=== PATIENT | male | born 1955 | race Caucasian/White ===

== ENCOUNTER 2021-09-05 04:23 | Inpatient (IN) | payer MEDICAID, SELFPAY ==
[2021-09-05 04:23] VITALS: BP 149/79; PULSE 56; RESP 18; TEMP 36.8; O2SAT 98
[2021-09-05 04:34] VITALS: BMI 26.9
--- NOTE | 2021-09-05 05:18 | PC.NURSE ---
Dentures not with patient
--- NOTE | 2021-09-05 05:57 | PC.NURSE ---
Patient reports having thoughts of harming self.
[2021-09-05 06:00] VITALS: BP 157/85; PULSE 53; RESP 17; TEMP 36.9; O2SAT 96
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
[2021-09-05] MEDS: buPROPion XL (24 HR) 300 mg Tablet PO (10:46)
[2021-09-05] MEDS: levothyroxine 50 mcg Tablet PO (10:46)
[2021-09-05] MEDS: ibuprofen 600 mg Tablet PO (10:46)
[2021-09-05] MEDS: risperiDONE 1 mg Tablet PO ×3 (10:46→20:57)
[2021-09-05 14:00] VITALS: BP 105/68; PULSE 71; RESP 16; TEMP 36.6; O2SAT 96
[2021-09-05 20:18] VITALS: BP 109/66; PULSE 74; RESP 20; TEMP 36.3; O2SAT 95
[2021-09-06 06:00] VITALS: BP 103/63; PULSE 59; RESP 18; TEMP 36.6; O2SAT 95
[2021-09-06] MEDS: acetaminophen 325 mg Tablet 650 MG PO (10:15)
[2021-09-06] MEDS: buPROPion XL (24 HR) 300 mg Tablet PO (10:15)
[2021-09-06] MEDS: levothyroxine 50 mcg Tablet PO (10:15)
--- NOTE | 2021-09-06 10:21 | PC.NURSE ---
Patient with c/o right hip pain rated 4 , Tylenol 650 mg po given for this.
--- NOTE | 2021-09-06 12:15 | P.NPUPN_ITS ---
Subjective NPU Subjective: Patient presents today reporting that he is doing okay. It appears that getting his medication daily is helpful and he was less pressured about his confucianist preoccupations. However he did continue to do be somatically preoccupied about things related to his health and some of them loosely being connected with issues of his stigmata. We discussed the importance of him getting multiple days of him taking the medication to get a sense of where things are. Mental Status Exam MSE Comments: This is a well nourished, well developed white male in hospital scrubs with adequate grooming and limited eye contact. No abnormal movements except for psychomotor retardation. Mostly cooperative with exam in mild to moderate distress. Speech was normal rate and volume. Mood described as okay, affect is slightly subdued. Thought process, organized. Thought content: patient denies suicidal or homicidal ideation, no delusions reported but active delusions noted, and endorses auditory and visual hallucinations. Attention and concentration are intact and memory appeared reliable but none were formally tested. He is alert and oriented three times. Insight and judgment are limited. Impulse control is impaired. 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 1. Continue current medications 2. Encourage individual, group and milieu therapy 3. Continue q-15 minute check for safety 4. Recommend sober living treatment at the highest level of care to which the patient is willing to commit. Involuntary Hold Information 96 Hour Hold: 96 Hour Involuntary Admission: No Attestations NPU Medical Necessity Statement*: Inpatient hospitalization is medically necessary and the clinically appropriate intervention at this time. We will monitor medications and make changes as indicated. Likely length of stay is three to five days. 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
[2021-09-06 14:00] VITALS: BP 138/77; PULSE 63; RESP 16; TEMP 36.4; O2SAT 97
[2021-09-06 20:14] VITALS: BP 136/79; PULSE 59; RESP 20; TEMP 36.8; O2SAT 99
[2021-09-06] MEDS: hyDROXYzine 25 mg Capsule 50 MG PO (21:56)
[2021-09-06] MEDS: risperiDONE 2 mg Tablet 1 MG PO (21:56)
[2021-09-06] MEDS: trazodone 50 mg Tablet PO (21:57)
[2021-09-07 06:00] VITALS: BP 141/86; PULSE 63; RESP 18; TEMP 36.4; O2SAT 94
--- NOTE | 2021-09-07 07:55 | W.PM.NPUPNS ---
Subjective NPU Subjective: Patient presents today reporting that he is feeling a little bit better. Specifically some of his pain syndrome is diminishing as he is experiencing it. He continues to be hyper somatic versus having somatic delusions. He does continue to speak about the stigmata and his energy level. Reporting for him to be as young as he is should be this tired and he needs his energy to go about his purpose when he leaves the hospital. He reports that he is getting more more accustomed to the medication and denies any drowsiness reports he is eating and sleeping better likely due to lessening of the pain. Mental Status Exam MSE Comments: This is a well nourished, well developed white male in hospital scrubs with adequate grooming and limited eye contact. No abnormal movements except for psychomotor retardation. Mostly cooperative with exam in mild distress. Speech was normal rate and volume. Mood described as all right, affect is slightly subdued. Thought process, organized. Thought content: patient denies suicidal or homicidal ideation, no delusions reported but active delusions noted, and endorses auditory and visual hallucinations. Attention and concentration are intact and memory appeared reliable but none were formally tested. He is alert and oriented three times. Insight and judgment are limited. Impulse control is limited. 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 1. Continue current medications 2. Encourage individual, group and milieu therapy 3. Continue q-15 minute check for safety 4. Recommend sober living treatment at the highest level of care to which the patient is willing to commit. Involuntary Hold Information 96 Hour Hold: 96 Hour Involuntary Admission: No Attestations NPU Medical Necessity Statement*: Inpatient hospitalization is medically necessary and the clinically appropriate intervention at this time. We will monitor medications and make changes as indicated. Likely length of stay is 2-4 days. 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
[2021-09-07] MEDS: risperiDONE 2 mg Tablet 1 MG PO ×3 (08:58→21:24)
[2021-09-07] MEDS: hyDROXYzine 25 mg Capsule 50 MG PO (08:59)
[2021-09-07] MEDS: levothyroxine 50 mcg Tablet PO (08:59)
[2021-09-07] MEDS: ibuprofen 600 mg Tablet PO (08:59)
[2021-09-07] MEDS: buPROPion XL (24 HR) 300 mg Tablet PO (08:59)
--- NOTE | 2021-09-07 09:22 | PC.NURSE ---
PT REPORTED 6/10 GENERALIZED PAIN THIS AM AND THE PAIN WAS MAKING HIM ANXIOUS. PRN VISTARIL WAS GIVEN ORDERED. PT DENIES SI/HI AND AVH AT THIS TIME. PT DID WALK TO ROOM WITHOUT DIFFICULTY. CURRENTLY IN BED RESTING IN NO DISTRESS. MEDICATION EFFECTIVE.
[2021-09-07 13:58] VITALS: BP 141/86; PULSE 63; RESP 18; TEMP 36.4; O2SAT 94
[2021-09-07 15:33] VITALS: BP 154/85; PULSE 68; RESP 16; TEMP 36.4; O2SAT 98
[2021-09-07 20:07] VITALS: BP 144/81; PULSE 74; RESP 15; O2SAT 98
[2021-09-08 06:00] VITALS: BP 139/86; PULSE 70; RESP 16; TEMP 36.6; O2SAT 97
--- NOTE | 2021-09-08 06:12 | W.PM.NPUPNS ---
Subjective NPU Subjective: Patient presents today reporting that he thinks he?s doing a little better. We discussed a plan to work with the treatment team in the morning to start looking at possible discharge opportunities. He continues to be less preoccupied with the stigmata conversation. Otherwise he did not complain about any specific pains or physical concerns today. Mental Status Exam MSE Comments: This is a well nourished, well developed white male in hospital scrubs with adequate grooming and limited eye contact. No abnormal movements except for psychomotor retardation. Mostly cooperative with exam in no acute distress. Speech was normal rate and volume. Mood described as Okay, affect is slightly subdued. Thought process, organized. Thought content: patient denies suicidal or homicidal ideation, no delusions reported but active delusions noted, and endorses auditory and visual hallucinations. Attention and concentration are intact and memory appeared reliable but none were formally tested. He is alert and oriented three times. Insight and judgment are limited. Impulse control is limited. 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 1. Continue current medications 2. Encourage individual, group and milieu therapy 3. Continue q-15 minute check for safety 4. Recommend sober living treatment at the highest level of care to which the patient is willing to commit. Involuntary Hold Information 96 Hour Hold: 96 Hour Involuntary Admission: No Attestations NPU Medical Necessity Statement*: Inpatient hospitalization is medically necessary and the clinically appropriate intervention at this time. We will monitor medications and make changes as indicated. Likely length of stay is 1-3 days. 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
[2021-09-08] MEDS: buPROPion XL (24 HR) 300 mg Tablet PO (09:52)
[2021-09-08] MEDS: risperiDONE 2 mg Tablet 1 MG PO ×3 (09:52→20:14)
[2021-09-08] MEDS: levothyroxine 50 mcg Tablet PO (09:52)
[2021-09-08 14:00] VITALS: BP 153/80; PULSE 66; RESP 16; TEMP 36.8; O2SAT 98
[2021-09-08] MEDS: ibuprofen 600 mg Tablet PO ×2 (14:25→20:13)
[2021-09-08 20:41] VITALS: BP 153/96; PULSE 76; RESP 20; TEMP 36.8; O2SAT 95
[2021-09-09 06:00] VITALS: BP 169/84; PULSE 61; RESP 18; TEMP 36.6; O2SAT 98
[2021-09-09] MEDS: ibuprofen 600 mg Tablet PO (06:39)
[2021-09-09] MEDS: risperiDONE 2 mg Tablet 1 MG PO ×3 (09:33→22:20)
[2021-09-09] MEDS: levothyroxine 50 mcg Tablet PO (09:33)
[2021-09-09] MEDS: buPROPion XL (24 HR) 300 mg Tablet PO (09:33)
--- NOTE | 2021-09-09 12:59 | P.NPUPN_ITS ---
Subjective NPU Subjective: Patient presents today reports that he is doing better and reports that he would like to go home. He asked the bond underwriter of the note if i knew about stigmata. 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 He reports that he has battled homelessness recently and reports concern about hepatitis c as he complained about fatigue and reports recent diagnosis of this. He reports feeling better on his medication and reports that he has been readying himself at [facility] tommorow. Mental Status Exam MSE Comments: This is a well nourished, well developed white male in hospital scrubs with adequate grooming and limited eye contact. No abnormal movements except for psychomotor retardation. Mostly cooperative with exam in no acute distress. Speech was normal rate and volume. Mood described as allright, affect is blunted. Thought process, more linear and organized. Thought content: patient denies suicidal or homicidal ideation, no delusions reported but active delusions noted, and endorses auditory and visual hallucinations. Attention and concentration are intact and memory appeared reliable but none were formally tested. He is alert and oriented three times. Insight and judgment are limited. Impulse control is limited. Deniz complexion noted. 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 1. Continue wellbutrin xl 300mg in AM, Risperidone 1mg tid. 2. Encourage individual, group and milieu therapy 3. Continue q-15 minute check for safety 4. Recommend sober living treatment at the highest level of care to which the patient is willing to commit. Involuntary Hold Information 96 Hour Hold: 96 Hour Involuntary Admission: No Attestations NPU Medical Necessity Statement*: Inpatient hospitalization is medically necessary and the clinically appropriate intervention at this time. We will monitor medications and make changes as indicated. Likely length of stay is 1-2 days. 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
[2021-09-09 13:20] VITALS: BP 145/68; PULSE 66; RESP 17; TEMP 36.9; O2SAT 97
[2021-09-09 20:31] VITALS: BP 146/77; PULSE 81; RESP 16; TEMP 36.5; O2SAT 98
[2021-09-10] MEDS: ibuprofen 600 mg Tablet PO (05:18)
[2021-09-10 06:00] VITALS: RESP 18
[2021-09-10 09:57] VITALS: RESP 18
[2021-09-10 10:11] VITALS: BP 146/87; PULSE 73; RESP 16; TEMP 36.1; O2SAT 91
[2021-09-10] MEDS: risperiDONE 2 mg Tablet 1 MG PO (10:16)
[2021-09-10] MEDS: buPROPion XL (24 HR) 300 mg Tablet PO (10:16)
[2021-09-10] MEDS: levothyroxine 50 mcg Tablet PO (10:17)
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
== END 2021-09-10 12:10 | disposition home or self-care (01) | DRG 885 ==
PROVIDERS: Admitting Provider Psychiatry & Neurology Psychiatry; Visit Provider Psychiatry & Neurology Psychiatry
DX: F20.9 Schizophrenia, unspecified (principal); R45.851 Suicidal ideations; F60.89 Other specific personality disorders; Z59.00 Homelessness unspecified
CPT/HCPCS: 97150; 97165

== ENCOUNTER 2022-12-15 13:14 | Inpatient (IN) | payer MEDICARE, MEDICAID, SELFPAY ==
--- OUTSIDE RECORDS SUMMARY | 2022-12-15 13:20 | XMS_ITS | Continuity of Care Document ---
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 Name Role Phone Shelby THOMAS ([facility])Rahat Primary Care Physician Encounter Self Financial Number [id number] Date(s): 11/01/22 - 11/01/22 [facility] [address] [place] [address]- Encounter Diagnosis Back pain(Discharge Diagnosis) - 11/01/22 Discharge Disposition: .Discharge to Home (Routine) Attending Physician: Ken Cadet MD, MA Allergies, Adverse Reactions, Alerts Substance Reaction Severity Status penicillins unknown Unknown Active sulfa drugs Flores Art Syndrome Severe Act tamiko codeine stomach upset Moderate Active Talwin NX syncope Moderate Active Assessment and Plan Extracted from: Title:Back pain Author:Ken Cadet MD, MA Da te:11/01/22 Impression and Plan Diagnosis Back pain ([id number] M54.9) Plan Condition: Improved. Disposition: Medically cleared, Discharged: Time 11/01/2022 14:54:00, to home, The patient received an appropriate MSE including H&P exam as well as ancillary studies and procedures determined appropriate in the provider's judgement. The patient is medically and/or psychologically cleared for discharge. . Discharge: Diagnosis: Back pain (M54.9) Rx: Wall 5 mg-325 mg oral tablet 1 tab, By mouth, BID, PRN for pain, 3 Days, 6 tab, 0, 0, 11/04/22 14:48:00 CDT, Substitution Permitted, [facility], 74, Height (inches) (Clinical), 10/09/22 13:59:00 CDT, in, 112.1, Weight (kg) (Clinical), 11/01/22 10:35:00 CDT, kg Education: Acute Back Pain, Adult Orders: ( Completed ): fentaNYL (fentaNYL) 50 mcg 11/01/2022 11:20 Xtra Gold Top 11/01/2022 11:12 Xtra blue top 11/01/2022 11:12 CBC-d (CBC-d) 11/01/2022 11:29 CMP (CMP) 11/01/2022 11:41 Urinalysis w/ microscopy (Urinalysis w/ microscopy) 11/01/2022 11:30 zCBC Automated Diff (zCBC Automated Diff) 11/01/2022 11:50 MR Lumbar w wo Contrast (MR Lumbar w wo Contrast) 11/01/2022 13:45 gadobenate dimeglumine (MULTIHANCE 529 MG VL 20 ML) 20 mL 11/01/2022 12:36 morphine (morphine INJ) 4 mg 11/01/2022 14:09 Follow Up: Rahat Ryan 5 to 7 days Return to Emergency Department 5 to 7 days Return for worsening pain, fevers, numbness in your bowel or bladder, or any other symptoms you find concerning. [facility] 5 to 7 days Call on Thursday to schedule an appointment for your back. . Counseled: Patient, Regarding diagnosis, Regarding diagnostic results, Regarding treatment plan, Regarding prescription, Patient indicated understanding of instructions, Return precautions . Future Appointments Appointment Date:12/11/2022 01:00:00 PM Scheduled Provider:Shelby THOMAS ([facility])Rahat Location:[facility] Appointment Type:Established Patient Appointment Date:01/22/2023 11:00:00 AM Scheduled Provider:[facility]afa Marks [facility]:Established Patient Appointment Date:05/06/2023 09:10:00 AM Scheduled Provider:Gómez Soriano MD Location:-[facility] Sp Appointment Type:Established Patient Future Scheduled Tests Laboratory* Miscellaneous Send out 03/10/22 * Creatinine Clinic Radiology 03/21/22 * Hemogram 03/06/22 * HIV Antigen-Antibody by EIA 03/06/22 * Hgb A1C 03/06/22 * PSA 03/06/22 * TSH w Reflex FT4 03/06/22 * Lipid Panel with Reflex Direct LDL 03/06/22 * CMP 03/06/22 Radiology* XR Abd KUB Routine 3/15/23 Immunizations Given and Recorded Vaccine Date Status Refusal Reason COVID-19 SARS-CoV-2 mRNA-1273 Moderna 09/18/21 Rec orded COVID-19 SARS-CoV-2 mRNA-1273 Moderna 08/06/20 Rec orded Medications acetaminophen 325 mg oral tablet 650 mg = 2 tab, PO/per tube, Q6H, PRN Temp, Mild Pain, Headache, Refill(s) 0, TAB Start Date: 05/16/22 Status: Ordered Depakote 1 mg, By mouth, Daily, # 30 EA, Refill(s) 0 Start Date: 09/24/22 Status: Ordered levothyroxine 50 mcg (0.05 mg) oral tablet 50 mcg = 1 tab, By mouth, Daily, # 30 tab, Refill(s) 0, Other: See Comments, Pharmacy: [facility], [id number], TAB, 1 tab By mouth Daily, 113.91, 09/12/22 8:55:00CDT, kg, Weight (kg) (Clinical) Start Date: 09/24/22 Status: Ordered nadolol 20 mg oral tablet 20 mg = 1 tab, PO, Daily, # 30 tab, Refill(s) 12, Pharmacy: [facility], [id number], 1 tab By mouth Daily, 113.91, 09/12/22 8:55:00 CDT, kg, Weight (kg) (Clinical) Start Date: 09/24/22 Status: Ordered Wall 5 mg-325 mg oral tablet 1 tab, By mouth, BID, PRN for pain, 3 Days, 6 tab, 0, 0, 11/04/22 14:48:00 CDT, Substitution Permitted, [facility], 74, Height (inches) (Clinical), 10/09/22 13:59:00 CDT, in, 112.1, Weight(kg) (Clinical), 11/01/22 10:35:00 CDT, kg Start Date: 11/01/22 Stop Date: 11/04/22 Status: Ordered Pepcid 20 mg oral tablet 20 mg, By mouth, BID, # 60 tab, Refill(s) 1, GERD, Pharmacy: [facility], [id number], TAB, 20 mg By mouth BID, 113.91, 09/12/22 8:55:00 CDT, kg, Weight (kg) (Clinical) Start Date: 09/24/22 Status: Ordered RisperDAL 2 mg oral tablet 2 mg = 1 tab, By mouth, BID, # 60 tab, Refill(s) 0 Start Date: 11/01/22 Status: Ordered spironolactone 50 mg oral tablet 50 mg = 1 tab, By mouth, Daily, # 30 tab, Refill(s) 11, Pharmacy: [facility], NCPDP_ID-[id number], TAB, 1 tab By mouth Daily,x30 Days, 115.59, 10/09/22 13:59:00 CDT, kg, Weight (kg) (Clinical) Start Date: 10/09/22 Stop Date: 10/04/23 Status: Ordered Wellbutrin XL 150 mg/24 hours oral tablet, extended release 150 mg = 1 tab, By mouth, QAM, # 30 tab, Refill(s) 11, Depression, Pharmacy: [facility], NCPDP_ID-[id number], XL TAB, 1 tab By mouth QAM,x30 Days, 115.59, 10/09/22 13:59:00 CDT,kg, Weight (kg) (Clinical) Start Date: 10/21/22 Stop Date: 10/16/23 Status: Ordered Problem List Condition Confirmation Course Effective Dates Status H ealth Status Informant Abdominal pain Confirmed Active Increased ammonia level Confirmed Active Ascites Confirmed Active Benign prostate hyperplasia Confirmed Active Hematuria Confirmed Active Chronic hepatitis C Confirmed Active Cirrhosis Confirmed Active Esophageal varices Confirmed Active Ex-smoker Confirmed Active patient Supraumbilical hernia Confirmed Active Homeless Confirmed Active Hypertension Confirmed Active Hypothyroidism Confirmed Active Renal calculus Confirmed Active Depression, major Confirmed Active Peripheral neuropathy Confirmed Active Polysubstance abuse Confirmed Active Ureteral stenosis Confirmed Active Procedures Procedure Date Related Diagnosis Body Site Status Gastroscopy - Endo 1 05/05/22 Comp leted Esophagogastroduodenoscopy 2 1/19/22 Completed Gastroscopy - Endo 3 08/01/17 Comp leted gallbladder 1999 Completed back surgery 04/1985 Completed lithotripsy Completed 1auto-populated from documented surgical case 2auto-populated from documented surgical case 3auto-populated from documented surgical case Results Laboratory List Name Date CBC-d 11/01/22 CMP 11/01/22 Urinalysis w/ microscopy 11/01/22 zCBC Automated Diff 11/01/22 Most recent to oldest [Reference Range]: 1 Anion Gap [2-15 mEq/L] 4 mEq/L (11/01/22 11:10 AM) RTE Casts None Seen (11/01/22 11:10 AM) RTEs None Seen (11/01/22 11:10 AM) eGFR CKD-EPI [>=61 mL/min/1.73 m2] 108 m L/min/1.73 m2 (11/01/22 11:10 AM) Glucose, Serum/Plasma [70-100 mg/dL] 98 mg/dL (11/01/22 11:10 AM) WBC [4.8-10.8 Thous/mm3] 3.8 Thous/mm3 *LOW* (11/01/22 11:10 AM) Hct [42.0-52.0 %] 31.7 % *LOW* (11/01/22 11:10 AM) Hgb [14.0-18.0 g/dL] 9.1 g/dL *LOW* (11/01/22 11:10 AM) RBC [4.60-6.20 Million/mm3] 4.67 Million /mm3 (11/01/22 11:10 AM) MCV [80.0-100.0 fl] 67.9 fl *LOW* (11/01/22 11:10 AM) MCH [26.0-34.0 pg] 19.5 pg *LOW* (11/01/22 11:10 AM) MCHC [31.0-36.5 g/dL] 28.7 g/dL *LOW* (11/01/22 11:10 AM) RDW [10.4-14.4 %] 24.5 % *HI* (11/01/22 11:10 AM) Platelets [130-440 Thous/mm3] 149 Thous/ mm3 (11/01/22 11:10 AM) MPV [9.4-12.4 fl] ---- fl *NA* (11/01/22 11:10 AM) AutoNeutrophil [43.0-78.0 %] 70.0 % (11/01/22 11:10 AM) AutoLymphs [20.0-40.0 %] 18.7 % *LOW* (11/01/22 11:10 AM) AutoMono [2.0-10.0 %] 6.8 % (11/01/22 11:10 AM) AutoEo [0.0-7.0 %] 2.1 % (11/01/22 11:10 AM) Sodium [136-145 mEq/L] 142 mEq/L (11/01/22 11:10 AM) Potassium [3.5-5.1 mEq/L] 4.5 mEq/L (11/01/22 11:10 AM) Chloride [98-107 mEq/L] 114 mEq/L *HI* (11/01/22 11:10 AM) AbsNeut [2.0-8.0 Thous/mm3] 2.7 Thous/mm 3 (11/01/22 11:10 AM) CO2 [21-32 mEq/L] 24 mEq/L (11/01/22 11:10 AM) BUN [7-18 mg/dL] 12 mg/dL (11/01/22 11:10 AM) Creatinine [0.73-1.18 mg/dL] 0.59 mg/dL *LOW* (11/01/22 11:10 AM) AbsLymph [1.0-4.0 Thous/mm3] 0.7 Thous/m m3 *LOW* (11/01/22 11:10 AM) AbsMono [0.1-1.0 Thous/mm3] 0.3 Thous/mm 3 (11/01/22 11:10 AM) Bilirubin, Total [0.2-1.0 mg/dL] 1.4 mg/ dL *HI* (11/01/22 11:10 AM) AbsEo [0.0-0.5 Thous/mm3] 0.1 Thous/mm3 (11/01/22 11:10 AM) AbsBaso [0.0-0.2 Thous/mm3] 0.1 Thous/mm 3 (11/01/22 11:10 AM) AutoBaso [0.0-2.5 %] 2.1 % (11/01/22 11:10 AM) Calcium [8.3-10.6 mg/dL] 8.2 mg/dL *LOW* (11/01/22 11:10 AM) Protein Total [6.4-8.5 g/dL] 5.9 g/dL *LOW* (11/01/22 11:10 AM) Albumin [3.4-5.0 g/dL] 3.2 g/dL *LOW* (11/01/22 11:10 AM) AST [15-37 U/L] 103 U/L *HI* (11/01/22 11:10 AM) Alk Phos [45-117 U/L] 112 U/L (11/01/22 11:10 AM) ALT [10-49 U/L] 62 U/L *HI* (11/01/22 11:10 AM) Appearance [Clear] Clear (11/01/22 11:10 AM) Color [Yellow] Dark Yellow *NA* (11/01/22 11:10 AM) Sp. [place] [1.001-1.035] 1.024 (11/01/22 11:10 AM) Ketones [Negative] Negative (11/01/22 11:10 AM) Glucose [Negative] Negative (11/01/22 11:10 AM) Protein [Negative] Negative (11/01/22 11:10 AM) Blood [Negative] Negative (11/01/22 11:10 AM) Nitrites UA [Negative] Negative (11/01/22 11:10 AM) Bilirubin UA [Negative] Negative (11/01/22 11:10 AM) Urobilinogen [1.0 mg/dL] 2.0 mg/dL *ABN* (11/01/22 11:10 AM) Leuko Esterase UA [Negative] Negative (11/01/22 11:10 AM) pH UA [5.0-9.0] 6.0 (11/01/22 11:10 AM) RBC [0-2/hpf] 0-2/hpf (11/01/22 11:10 AM) WBC [0-5/hpf] 0-5/hpf (11/01/22 11:10 AM) Hyaline Casts [0-2/lpf] 0-2/lpf (11/01/22 11:10 AM) Bacteria [None Seen] None Seen (11/01/22 11:10 AM) Epithelium [None Seen] None Seen (11/01/22 11:10 AM) Volume 3 mL *NA* (11/01/22 11:10 AM) Imm. Grans % [0-5 %] <5 % (11/01/22 11:10 AM) Imm. Grans # [0.0-0.5 Thous/mm3] <0.5 Th ous/mm3 (11/01/22 11:10 AM) ANC-AbsNeutCount 2.7 Thous/mm3 *NA* (11/01/22 11:10 AM) Radiology Reports * Exam Date Time Procedure Performing Provider Status 11/01/22 12:37 PM MR Lumbar w wo Contrast Chichi KAMINSKI, Rusty atkins MA; Auth (Verified) Notes: (MR Lumbar w wo Contrast) Reason For Exam: Recent diagnosis hepatocellular carcinoma. Process of getting transplant. Low back pain, weakness of R leg. Began four days ago. MR Lumbar w wo Contrast PROCEDURE INFORMATION: Exam: MR Lumbar Spine Without and With Contrast Exam date and time: 11/01/2022 12:37 PM Age: 66 years old Clinical indication: Recent diagnosis hepatocellular carcinoma. Process of getting tr TECHNIQUE: Imaging protocol: Magnetic resonance imaging of the lumbar spine without and with contrast. Contrast material: MULTIHANCE; Contrast volume: 20 ml; Contrast route: INTRAVENOUS (IV); COMPARISON: CT Abd Pelvis w Contrast 07/11/2022 10:46 PM FINDINGS: Bones/joints: Lumbar alignment is within normal limits. There is a chronic appearing mild superior endplate compression deformity of L3. There is no suspicious marrow signal intensity. Spinal cord: The conus terminates at the L1 vertebral body level. The conus medullaris and cauda equina are unremarkable. L1-L2: Mild loss of disc height posteriorly. Gtsw-dt-rowxhpfn bilateral facet arthropathy. Small broad-based disc bulge. Mild bilateral neural foraminal stenosis without significant disc herniation or central canal stenosis. L2-L3: Diffuse disc desiccation. Mild loss of disc height posteriorly. Mild/moderate bilateral facet arthropathy. Asymmetric disc bulge. Mild central canal stenosis with zfrq-tq-jktnjisi bilateral neural foraminal stenosis. L3-L4: Moderate bilateral facet arthropathy broad-based disc bulge. Moderate bilateral neural foraminal stenosis and mild central canal stenosis. L4-L5: Moderate loss of disc height posteriorly. Moderate bilateral facet arthropathy. Asymmetric disc bulge. Moderate bilateral neural foraminal stenosis and mild central canal stenosis. Postsurgical changes consistent with partial left hemilaminectomy. L5-S1: Moderate bilateral facet arthropathy. Moderate loss of disc height posteriorly. Asymmetric disc bulge with superimposed small/shallow central disc protrusion resulting in effacement of the ventral thecal sac. Moderate bilateral neural foraminal stenosis without significant central canal stenosis. Soft tissues: Asymmetric atrophy of the left lower paraspinal musculature. Other findings: There is no suspicious enhancement after the administration of IV contrast. IMPRESSION: 1. No acute abnormality or evidence of metastasis within the lumbar spine. 2. Chronic appearing mild superior endplate compression deformity of L3. 3. Multilevel degenerative changes of the lumbar spine as described in detail above. Electronically signed by: Sri Bentley MD, [facility], 11/01/2022 13:45 REPORT Vital Signs Most recent to oldest [Reference Range]: 1 2 3 Blood Pressure 132/63 (11/01/22 2:20 PM) 174/84 (11/01/22 2:10 PM) 168/77 (11/01/22 12:40 PM) Weight (kg) (Clinical) 112.1 kg (11/01/22 10:35 AM) Social History Social History Type Response Smoking Status Former smoker; Smoke less tobacco use: Never; Has the patient smoked in the last 365 days, even once? No; 2nd hand smoke exposure. Yes; Number of years: 18; entered on: 01/14/22 Sex Male Implantable Device List Procedure Provider Procedure Date Device Type Site Ureteroscopy with Holmium La ser Lithotri Unknown 02/27/22 Unknown Ureter, Left Device Identifier Serial Number Lot or Batch Number Manufacturing Date Expiration Date Distinct Identification Code MRI Safety Implantable Status Assigning Authority [id number] Unknown [id number] Unknown 06/27/25 Unknown Unknown Active GS1 Procedure Provider Procedure Date Device Type Site Unknown Unknown 01/14/22 Unknown Ureter, Left Device Identifier Serial Number Lot or Batch Number Manufacturing Date Expiration Date Distinct Identification Code MRI Safety Implantable Status Assigning Authority Unknown Unknown [id number] Unknown 09/16/26 Unknown Unknown Active Unkn own Procedure Provider Procedure Date Device Type Site Unknown Unknown 05/02/21 Unknown Ureter, Left Device Identifier Serial Number Lot or Batch Number Manufacturing Date Expiration Date Distinct Identification Code MRI Safety Implantable Status Assigning Authority [id number] Unknown [id number] Unknown 12/18/25 Unknown Unknown Active GS1 Hospital Discharge Instructions Patient Education 11/01/2022 14:48:01 Acute Back Pain, Adult Acute Back Pain, Adult Acute back pain is sudden and usually short-lived. It is often caused by an injury to the muscles and tissues in the back. The injury may result from: ??? A muscle, tendon, or ligament getting overstretched or torn. Ligaments are tissues that connectbones to each other. Lifting something improperly can cause a back strain. ??? Wear and tear (degeneration) of the spinal disks. Spinal disks are circular tissue that providecushioning between the bones of the spine (vertebrae). ??? Twisting motions, such as while playing sports or doing yard work. ??? A hit to the back. ??? Arthritis. You may have a physical exam, lab tests, and imaging tests to find the cause of your pain. Acute back pain usually goes away with rest and home care. Follow these instructions at home: Managing pain, stiffness, and swelling ??? Take lokp-cok-bvlowec and prescription medicines only as told by your health care provider. Treatment may include medicines for pain and inflammation that are taken by mouth or applied to the skin, or muscle relaxants. ??? Your health care provider may recommend applying ice during the first 24???48 hours after your pain starts. To do this: ??? Put ice in a plastic bag. ??? Place a towel between your skin and the bag. ??? Leave the ice on for 20 minutes, 2???3 times a day. ??? Remove the ice if your skin turns bright red. This is very important. If you cannot feel pain, heat, or cold, you have a greater risk of damage to the area. ??? If directed, apply heat to the affected area as often as told by your health care provider. Usethe heat source that your health care provider recommends, such as a moist heat pack or a heating pad. ??? Place a towel between your skin and the heat source. ??? Leave the heat on for 20???30 minutes. ??? Remove the heat if your skin turns bright red. This is especially important if you are unable to feel pain, heat, or cold. You have a greater risk of getting burned. Activity ??? Do not stay in bed. Staying in bed for more than 1???2 days can delay your recovery. ??? Sit up and stand up straight. Avoid leaning forward when you sit or hunching over when you stand. ??? If you work at a desk, sit close to it so you do not need to lean over. Keep your chin tucked in. Keep your neck drawn back, and keep your elbows bent at a 90-degree angle (right angle). ??? Sit high and close to the steering wheel when you drive. Add lower back (lumbar) support to your car seat, if needed. ??? Take short walks on even surfaces as soon as you are able. Try to increase the length of time you walk each day. ??? Do not sit, drive, or disease and insect control boss one place for more than 30 minutes at a time. Sitting or standing for long periods of time can put stress on your back. ??? Do not drive or use heavy machinery while taking prescription pain medicine. ??? Use proper lifting techniques. When you bend and lift, use positions that put less stress on your back: ??? Bend your knees. ??? Keep the load close to your body. ??? Avoid twisting. ??? Exercise regularly as told by your health care provider. Exercising helps your back heal fasterand helps prevent back injuries by keeping muscles strong and flexible. ??? Work with a physical therapist to make a safe exercise program, as recommended by your health care provider. Do any exercises as told by your physical therapist. Lifestyle ??? Maintain a healthy weight. Extra weight puts stress on your back and makes it difficult to havegood posture. ??? Avoid activities or situations that make you feel anxious or stressed. Stress and anxiety increase muscle tension and can make back pain worse. Learn ways to manage anxiety and stress, such as through exercise. General instructions ??? Sleep on a firm mattress in a comfortable position. Try lying on your side with your knees slightly bent. If you lie on your back, put a pillow under your knees. ??? Keep your head and neck in a straight line with your spine (neutral position) when using electronic equipment like smartphones or pads. To do this: ??? Raise your smartphone or pad to look at it instead of bending your head or neck to look down. ??? Put the smartphone or pad at the level of your face while looking at the screen. ??? Follow your treatment plan as told by your health care provider. This may include: ??? Cognitive or behavioral therapy. ??? Acupuncture or massage therapy. ??? Meditation or yoga. Contact a health care provider if: ??? You have pain that is not relieved with rest or medicine. ??? You have increasing pain going down into your legs or buttocks. ??? Your pain does not improve after 2 weeks. ??? You have pain at night. ??? You lose weight without trying. ??? You have a fever or chills. ??? You develop nausea or vomiting. ??? You develop abdominal pain. Get help right away if: ??? You develop new bowel or bladder control problems. ??? You have unusual weakness or numbness in your arms or legs. ??? You feel faint. These symptoms may represent a serious problem that is an emergency. Do not wait to see if the symptoms will go away. Get medical help right away. Call your local emergency services (911 in the [place] Do not drive yourself to the hospital. Summary ??? Acute back pain is sudden and usually short-lived. ??? Use proper lifting techniques. When you bend and lift, use positions that put less stress on your back. ??? Take obgk-uzb-cycucmi and prescription medicines only as told by your health care provider, andapply heat or ice as told. This information is not intended to replace advice given to you by your health care provider. Make sure you discuss any questions you have with your health care provider. Document Revised: 04/19/2021 Document Reviewed: 04/19/2021 Elsevier Patient Education ?? 2022 [employer] Follow Up Care 11/01/2022 10:10:37 With:[facility] Address: [facility] [address] [address]- Business (1) When:5 to 7 days Comments:Call on Justen to schedule an appointment for your back. With:Return to Emergency Department Address:Unknown When:5 to 7 days Comments:Return for worsening pain, fevers, numbness in your bowel or bladder, or any other symptoms you find concerning. With:Rahat Ryan Address: [address] [facility] [address] [place] [address]- Business (1) When:5 to 7 days MR Lumbar spine WO [place] W contrast IV * [id number] SRI MA: PERFORM, VERIFY Event Display: Powerscribe Read Authored Date: [id number] PROCEDURE INFORMATION: Exam: MR Lumbar Spine Without and With Contrast Exam date and time: 11/01/2022 12:37 PM Age: 66 years old Clinical indication: Recent diagnosis hepatocellular carcinoma. Process of getting tr TECHNIQUE: Imaging protocol: Magnetic resonance imaging of the lumbar spine without and with contrast. Contrast material: MULTIHANCE; Contrast volume: 20 ml; Contrast route: INTRAVENOUS (IV); COMPARISON: CT Abd Pelvis w Contrast 07/11/2022 10:46 PM FINDINGS: Bones/joints: Lumbar alignment is within normal limits. There is a chronic appearing mild superior endplate compression deformity of L3. There is no suspicious marrow signal intensity. Spinal cord: The conus terminates at the L1 vertebral body level. The conus medullaris and cauda equina are unremarkable. L1-L2: Mild loss of disc height posteriorly. Vugi-af-nqrnvcio bilateral facet arthropathy. Small broad-based disc bulge. Mild bilateral neural foraminal stenosis without significant disc herniation or central canal stenosis. L2-L3: Diffuse disc desiccation. Mild loss of disc height posteriorly. Mild/moderate bilateral facet arthropathy. Asymmetric disc bulge. Mild central canal stenosis with jfxm-gp-tuglqwdq bilateral neural foraminal stenosis. L3-L4: Moderate bilateral facet arthropathy broad-based disc bulge. Moderate bilateral neural foraminal stenosis and mild central canal stenosis. L4-L5: Moderate loss of disc height posteriorly. Moderate bilateral facet arthropathy. Asymmetric disc bulge. Moderate bilateral neural foraminal stenosis and mild central canal stenosis. Postsurgical changes consistent with partial left hemilaminectomy. L5-S1: Moderate bilateral facet arthropathy. Moderate loss of disc height posteriorly. Asymmetric disc bulge with superimposed small/shallow central disc protrusion resulting in effacement of the ventral thecal sac. Moderate bilateral neural foraminal stenosis without significant central canal stenosis. Soft tissues: Asymmetric atrophy of the left lower paraspinal musculature. Other findings: There is no suspicious enhancement after the administration of IV contrast. IMPRESSION: 1. No acute abnormality or evidence of metastasis within the lumbar spine. 2. Chronic appearing mild superior endplate compression deformity of L3. 3. Multilevel degenerative changes of the lumbar spine as described in detail above. Electronically signed by: Sri Bentley MD, [facility], 11/01/2022 13:45 Note * [id number] -SRI BENTLEY: PERFORM, VERIFY Event Display: Report Authored Date: [id number] Patient Care team information Care Team Personnel Name: Chantel Atkins Position: Inpatient-Midlevel Member Role: Nurse Practitioner Address: Address: [facility] [place] [address]- Name: Shelby THOMAS ([facility])Rahat Position: PX Physician - Resident Member Role: Primary Care Physician Address: Address: [facility] Name: Hedy Ruvalcaba RN Position: ED-Clinical LP Member Role: Emergency Room Nurse Name: Ken Cadet MD, MA Position: Physician-Emergency LP Member Role: Attending Physician Address: Address: [facility] Care Team Related Persons Name: NONE, GIVEN Name: SHAYNA GUZMÁN Name: BASILIA NORTON
--- OUTSIDE RECORDS SUMMARY | 2022-12-15 13:20 | XMS_ITS | Continuity of Care Document ---
Author Name Unknown Organization [facility] Address [address] [place] [address]- Care Team Providers Care Inspector Automatic Typewriter Name Role Phone Shelby (CC), Rahat Miramontes Primary Care Physician Encounter Self Financial Number [id number] Date(s): 11/06/22 - 11/06/22 [facility] [address] [place] [address]- Encounter Diagnosis Stress reaction(Discharge Diagnosis) - 11/06/22 Discharge Disposition: .Discharge to Home (Routine) Attending Physician: Nazario Gregory DO Allergies, Adverse Reactions, Alerts Substance Reaction Severity Status penicillins unknown Unknown Active Talwin NX syncope Moderate Active sulfa drugs Flores Art Syndrome Severe Act tamiko codeine stomach upset Moderate Active Assessment and Plan Extracted from: Title:Psych Author:Faye Wellington NP Date: Impression and Plan Plan Condition: Stable. Disposition: Discharged: The patient received an appropriate MSE including H&P exam as well as ancillary studies and procedures determined appropriate in the provider's judgement. The patient is medically and/or psychologically cleared for discharge. . Discharge: Diagnosis: Stress reaction (F43.0) Education: Managing Stress, Adult Orders: ( Completed ): ED Physician Request Pending Complete (ED Physician Request Pending Complete) 11/06/2022 13:44 CBC-d (CBC-d) 11/06/2022 12:58 CMP (CMP) 11/06/2022 13:20 Urinalysis w/ microscopy (Urinalysis w/ microscopy) 11/06/2022 12:30 Acetaminophen Level (Acetaminophen Level) 11/06/2022 13:20 Blood Alcohol Level (Blood Alcohol Level) 11/06/2022 13:20 Salicylate Level (Salicylate Level) 11/06/2022 13:21 Drug Screen, Rapid Urine (Drug Screen, Rapid Urine) 11/06/2022 12:35 ED Physician Request (ED Physician Request) 11/06/2022 13:44 zCBC Automated Diff (zCBC Automated Diff) 11/06/2022 12:58 Follow Up: [facility] Rahat Ryan 5 to 7 days Follow Up With Primary Care Provider . Counseled: Patient, Regarding diagnosis, Regarding diagnostic results, Regarding treatment plan, Patient indicated understanding of instructions. Notes: Patient seen with Dr. Gregory. Future Appointments Appointment Date:12/11/2022 01:00:00 PM Scheduled Provider:Shelby THOMAS ([facility])Rahat Location:[facility] Appointment Type:Established Patient Appointment Date:01/22/2023 11:00:00 AM Scheduled Provider:Rafa Marks MD Location:-[facility] Appointment Type:Established Patient Appointment Date:04/15/2023 08:30:00 AM Scheduled Provider:Id[facility] Fern[facility] App[facility] Type:ER Follow Up (New) Appointment Date:05/06/2023 09:10:00 AM Scheduled Provider:Gómez Soriano [...] CMP 03/06/22 Radiology* XR Abd KUB Routine 04/23/22 Immunizations Given and Recorded Vaccine Date Status [...] tab, Refill(s) 0, Other: See Comments, Pharmacy: [facility], [id number], TAB, 1 tab By mouth Daily, 113.91, 09/12/22 8:55:00CDT, kg, Weight (kg) (Clinical) Start Date: 09/24/22 Status: Ordered nadolol 20 mg oral tablet 20 mg = 1 tab, PO, Daily, # 30 tab, Refill(s) 12, Pharmacy: [facility], [id number], 1 tab By mouth Daily, 113.91, 09/12/22 8:55:00 CDT, kg, Weight (kg) (Clinical) Start Date: 09/24/22 Status: Ordered naproxen 500 mg oral tablet 500 mg = 1 tab, By mouth, BID, # 60 tab, Refill(s) 0, Pharmacy: [facility], [id number], 1 tab By mouth BID, 107.82, 11/04/22 14:02:00 CDT, kg, Weight (kg) (Clinical) Start Date: 11/05/22 Stop Date: 02/08/23 Status: Ordered [place] 5 mg-325 mg oral tablet 1 tab, By mouth, BID, PRN for pain, 4 Days, 8 tab, 0, 0, 11/11/22 13:50:00 CDT, Substitution Permitted, [facility], 74, Height (inches) (Clinical), 11/04/22 13:59:00 CDT, in, 107.82, Weight (kg) (Clinical), 11/04/22 14:02:00 CDT, kg Start Date: 11/07/22 Stop Date: 11/11/22 Status: Ordered Pepcid 20 mg oral tablet 20 mg, By mouth, BID, # 60 tab, Refill(s) 1, GERD, Pharmacy: [facility], [id number], TAB, 20 mg By mouth BID, 113.91, 09/12/22 8:55:00 CDT, kg, Weight (kg) (Clinical) Start Date: 09/24/22 Status: Ordered RisperDAL 2 mg oral tablet 2 mg = 1 tab, By mouth, BID, # 60 tab, Refill(s) 0 Start Date: 11/01/22 Status: Ordered spironolactone 50 mg oral tablet 50 mg = 1 tab, By mouth, Daily, # 30 tab, Refill(s) 11, Pharmacy: [facility], [id number], TAB, 1 tab By mouth Daily,x30 Days, 112.1, 11/01/22 10:35:00 CDT, kg, Weight (kg) (Clinical) Start Date: 11/03/22 Stop Date: 10/29/23 Status: Ordered Wellbutrin XL 150 mg/24 hours oral tablet, extended release 150 mg = 1 tab, By mouth, QAM, # 30 tab, Refill(s) 11, Depression, [facility] NCP_ID-[id number], XL TAB, 1 tab By mouth QAM,x30 [...] Hypothyroidism Confirmed Active Renal calculus Confirmed Active Hepatocellular carcinoma Confirmed Active Depression, major Confirmed Active Peripheral neuropathy Confirmed Active Polysubstance abuse Confirmed Active Ureteral stenosis Confirmed Active Procedures Procedure Date Related Diagnosis Body Site Status Gastroscopy - Endo 1 05/05/22 Comp leted Esophagogastroduodenoscopy 2 02/27/21 Completed Gastroscopy - Endo 3 08/01/17 Comp leted gallbladder 1999 Completed back surgery 04/1985 Completed lithotripsy Completed 1auto-populated from documented surgical case 2auto-populated from documented surgical case 3auto-populated from documented surgical case Results Laboratory List Name Date Acetaminophen Level 11/06/22 Blood Alcohol Level 11/06/22 CBC-d 11/06/22 CMP 11/06/22 Salicylate Level 11/06/22 zCBC Automated Diff 11/06/22 Drug Screen, Rapid Urine 11/06/22 Urinalysis w/ microscopy 11/06/22 Most recent to oldest [Reference Range]: 1 Propoxyphene Screen [Negative] Negative *NA* (11/06/22 11:45 AM) Blood Alcohol g/dl [0.000-0.000 %] 0.000 % (11/06/22 12:45 PM) Anion Gap [2-15 mEq/L] 8 mEq/L (11/06/22 12:45 PM) Fine Granular Casts [0/lpf] 0/lpf (11/06/22 11:45 AM) Coarse Granular Casts [0/lpf] 0/lpf (11/06/22 11:45 AM) RTE Casts [0/lpf] 0/lpf (11/06/22 11:45 AM) RTEs [0-2/lpf] 0/lpf (11/06/22 11:45 AM) eGFR CKD-EPI [>=61 mL/min/1.73 m2] 103 m L/min/1.73 m2 (11/06/22 12:45 PM) Buprenorphine Screen [Negative] Positive *ABN* (11/06/22 11:45 AM) Oxycodone Screen [Negative] Negative *NA* (11/06/22 11:45 AM) Glucose, Serum/Plasma [70-100 mg/dL] 90 mg/dL (11/06/22 12:45 PM) WBC [4.8-10.8 Thous/mm3] 4.6 Thous/mm3 *LOW* (11/06/22 12:45 PM) Hct [42.0-52.0 %] 34.0 % *LOW* (11/06/22 12:45 PM) Hgb [14.0-18.0 g/dL] 9.9 g/dL *LOW* (11/06/22 12:45 PM) RBC [4.60-6.20 Million/mm3] 5.07 Million /mm3 (11/06/22 12:45 PM) MCV [80.0-100.0 fl] 67.1 fl *LOW* (11/06/2245 PM) MCH [26.0-34.0 pg] 19.5 pg *LOW* (11/06/22:45 PM) MCHC [31.0-36.5 g/dL] 29.1 g/dL *LOW* (11/06/22:45 PM) RDW [10.4-14.4 %] 24.9 % *HI* (11/06/2245 PM) Platelets [130-440 Thous/mm3] 188 Thous/ mm3 (11/06/22:45 PM) MPV [9.4-12.4 fl] ---- fl *NA* (11/06/22:45 PM) AutoNeutrophil [43.0-78.0 %] 66.5 % (11/06/22:45 PM) AutoLymphs [20.0-40.0 %] 21.2 % (11/06/22:45 PM) AutoMono [2.0-10.0 %] 6.3 % (11/06/22:45 PM) AutoEo [0.0-7.0 %] 3.9 % (11/06/2245 PM) Sodium [136-145 mEq/L] 141 mEq/L (11/06/2245 PM) Potassium [3.5-5.1 mEq/L] 4.4 mEq/L (11/06/2245 PM) Chloride [98-107 mEq/L] 109 mEq/L *HI* (11/06/2245 PM) AbsNeut [2.0-8.0 Thous/mm3] 3.1 Thous/mm 3 (11/06/2245 PM) CO2 [21-32 mEq/L] 24 mEq/L (11/06/2245 PM) BUN [7-18 mg/dL] 15 mg/dL (11/06/2245 PM) Creatinine [0.67-1.17 mg/dL] 0.70 mg/dL (11/06/22 12:45 PM) AbsLymph [1.0-4.0 Thous/mm3] 1.0 Thous/m m3 (11/06/22 12:45 PM) AbsMono [0.1-1.0 Thous/mm3] 0.3 Thous/mm 3 (11/06/22 12:45 PM) Bilirubin, Total [0.2-1.0 mg/dL] 2.4 mg/ dL *HI* (11/06/22 12:45 PM) AbsEo [0.0-0.5 Thous/mm3] 0.2 Thous/mm3 (11/06/22 12:45 PM) AbsBaso [0.0-0.2 Thous/mm3] 0.1 Thous/mm 3 (11/06/22 12:45 PM) AutoBaso [0.0-2.5 %] 1.9 % (11/06/22 12:45 PM) Calcium [8.5-10.1 mg/dL] 8.3 mg/dL *LOW* (11/06/22 12:45 PM) Protein Total [6.4-8.5 g/dL] 6.3 g/dL *LOW* (11/06/22 12:45 PM) Albumin [3.4-5.0 g/dL] 3.1 g/dL *LOW* (11/06/22 12:45 PM) AST [15-37 U/L] 101 U/L *HI* (11/06/22 12:45 PM) Alk Phos [45-117 U/L] 130 U/L *HI* (11/06/22 12:45 PM) ALT [12-78 U/L] 63 U/L (11/06/22 12:45 PM) Appearance [Clear] Clear *NA* (11/06/22 11:45 AM) Color [Straw] Suzette *NA* (11/06/22 11:45 AM) Sp. Lucile [1.001-1.035] 1.024 (11/06/22 11:45 AM) Ketones [Negative] Negative (11/06/22 11:45 AM) Glucose [Normal] Normal (11/06/22 11:45 AM) Protein [Negative] Negative (11/06/22 11:45 AM) Blood [Negative] Negative (11/06/22 11:45 AM) Nitrites UA [Negative] Negative (11/06/22 11:45 AM) Acetaminophen Level [10.0-30.0 mcg/mL] < 2.0 mcg/mL *LOW* (11/06/22 12:45 PM) Salicylate Level [2.8-20.0 mg/dL] <1.7 m g/dL *LOW* (11/06/22 12:45 PM) Bilirubin UA [Negative] Negative (11/06/22 11:45 AM) Urobilinogen [1.0 mg/dL] 4.0 mg/dL *ABN* (11/06/22 11:45 AM) Leuko Esterase UA [Negative] Negative (11/06/22 11:45 AM) pH UA [5.0-9.0] 5.0 (11/06/22 11:45 AM) RBC [0-2/hpf] 0/hpf *NA* (11/06/22 11:45 AM) WBC [0-5/hpf] 0-5/hpf *NA* (11/06/22 11:45 AM) Hyaline Casts [0-2/lpf] 0/lpf (11/06/22 11:45 AM) Granular Casts [0-2/lpf] 0/lpf (11/06/22 11:45 AM) Bacteria [Negative] Negative *NA* (11/06/22 11:45 AM) Crystals [Negative] Negative (11/06/22 11:45 AM) Epithelium [1+] 1+ *NA* (11/06/22 11:45 AM) Phencyclidine Screen [Negative] Negative *NA* (11/06/22 11:45 AM) Benzodiazepines Screen [Negative] Negati ve *NA* (11/06/22 11:45 AM) Cocaine Screen [Negative] Negative *NA* (11/06/22 11:45 AM) Amphetamines Screen [Negative] Negative *NA* (11/06/22 11:45 AM) Cannabinoids Screen [Negative] Negative *NA* (11/06/22 11:45 AM) Opiates Screen [Negative] Positive *ABN* (11/06/22 11:45 AM) Barbiturates Screen [Negative] Negative *NA* (11/06/22 11:45 AM) Tricyclic Antidepressants Screen [Negati ve] Negative *NA* (11/06/22 11:45 AM) Mucous Threads [Negative /hpf] 1+ /hpf *NA* (11/06/22 11:45 AM) Methamphetamine Screen [Negative] Negati ve *NA* (11/06/22 11:45 AM) Volume 2 mL *NA* (11/06/22 11:45 AM) Imm. Grans % [0-5 %] <5 % (11/06/22 12:45 PM) Imm. Grans # [0.0-0.5 Thous/mm3] <0.5 Th ous/mm3 (11/06/22 12:45 PM) ANC-AbsNeutCount 3.1 Thous/mm3 *NA* (11/06/22 12:45 PM) Methadone Screen [Negative] Negative *NA* (11/06/22 11:45 AM) Vital Signs Most recent to oldest [Reference Range]: 1 Blood Pressure 151/81 (11/06/22 11:21 AM) Weight (kg) (Clinical) 109.6 kg (11/06/22 11:21 AM) Social History Social History Type Response [...] Code MRI Safety Implantable Status Assigning Authority [id number] 737 Unknown [id number] Unknown 06/27/25 Unknown Unknown Active GS1 Procedure Provider Procedure Date Device Type Site Unknown Unknown 01/14/22 Unknown Ureter, Left Device Identifier Serial Number Lot or Batch Number Manufacturing Date Expiration Date Distinct Identification Code MRI Safety Implantable Status Assigning Authority Unknown Unknown [id number] Unknown 09/16/26 Unknown Unknown Active Unkn own Procedure Provider Procedure Date Device Type Site Unknown Unknown 05/02/21 Unknown Ureter, Left Device Identifier Serial Number Lot or Batch Number Manufacturing Date Expiration Date Distinct Identification Code MRI Safety Implantable Status Assigning Authority [id number] Unknown [id number] Unknown 12/18/25 Unknown Unknown Active GS1 Hospital Discharge Instructions Patient Education 11/06/2022 14:14:43 Managing Stress, Adult Managing Stress, Adult Feeling a certain amount of stress is normal. Stress helps our body and mind get ready to deal withthe demands of life. Stress hormones can motivate you to do well at work and meet your responsibilities. But severe or long-term (chronic) stress can affect your mental and physical health. Chronic stress puts you at higher risk for: ??? Anxiety and depression. ??? Other health problems such as digestive problems, muscle aches, heart disease, high blood pressure, and stroke. What are the causes? Common causes of stress include: ??? Demands from work, such as deadlines, feeling overworked, or having long hours. ??? Pressures at home, such as money issues, disagreements with a spouse, or parenting issues. ??? Pressures from major life changes, such as divorce, moving, loss of a loved one, or chronic illness. You may be at higher risk for stress-related problems if you: ??? Do not get enough sleep. ??? Are in poor health. ??? Do not have emotional support. ??? Have a mental health disorder such as anxiety or depression. How to recognize stress Stress can make you: ??? Have trouble sleeping. ??? Feel sad, anxious, irritable, or overwhelmed. ??? Lose your appetite. ??? Overeat or want to eat unhealthy foods. ??? Want to use drugs or alcohol. Stress can also cause physical symptoms, such as: ??? Sore, tense muscles, especially in the shoulders and neck. ??? Headaches. ??? Trouble breathing. ??? A faster heart rate. ??? Stomach pain, nausea, or vomiting. ??? Diarrhea or constipation. ??? Trouble concentrating. Follow these instructions at home: Eating and drinking ??? Eat a healthy diet. This includes: ??? Eating foods that are high in fiber, such as beans, whole grains, and fresh fruits and vegetables. ??? Limiting foods that are high in fat and processed sugars, such as fried or sweet foods. ??? Do not skip meals or overeat. ??? Drink enough fluid to keep your urine pale yellow. Alcohol use ??? Do not drink alcohol if: ??? Your health care provider tells you not to drink. ??? You are , may be , or are planning to become . ??? Drinking alcohol is a way some people try to ease their stress. This can be dangerous, so if you drink alcohol: ??? Limit how much you have to: ??? 0???1 drink a day for women. ??? 0???2 drinks a day for men. ??? Know how much alcohol is in your drink. In the [place] one drink equals one 12 oz bottle of beer (355 mL), one 5 oz glass of wine (148 mL), or one 1?? oz glass of hard liquor (44 mL). Activity ??? Include 30 minutes of exercise in your daily schedule. Exercise is a good stress assistant superintendent for curriculum. ??? Include time in your day for an activity that you find relaxing. Try taking a walk, going on a bike ride, reading a book, or listening to music. ??? Schedule your time in a way that lowers stress, and keep a regular schedule. Focus on doing what is most important to get done. Lifestyle ??? Identify the source of your stress and your reaction to it. See a therapist who can help you change unhelpful reactions. ??? When there are stressful events: ??? Talk about them with family, friends, or coworkers. ??? Try to think realistically about stressful events and not ignore them or overreact. ??? Try to find the positives in a stressful situation and not focus on the negatives. ??? Cut back on responsibilities at work and home, if possible. Ask for help from friends or familymembers if you need it. ??? Find ways to manage stress, such as: ??? Mindfulness, meditation, or deep breathing. ??? Yoga or tremayne chi. ??? Progressive muscle relaxation. ??? Spending time in nature. ??? Doing art, playing music, or reading. ??? Making time for fun activities. ??? Spending time with family and friends. ??? Get support from family, friends, or spiritual resources. General instructions ??? Get enough sleep. Try to go to sleep and get up at about the same time every day. ??? Take kmnx-frq-xrqbumi and prescription medicines only as told by your health care provider. ??? Do not use any products that contain nicotine or tobacco. These products include cigarettes, chewing tobacco, and vaping devices, such as e-cigarettes. If you need help quitting, ask your health care provider. ??? Do not use drugs or smoke to deal with stress. ??? Keep all follow-up visits. This is important. Where to find support ??? Talk with your health care provider about stress management or finding a support group. ??? Find a therapist to work with you on your stress management techniques. Where to find more information ??? National [place] on Mental Illness: www.dmitry.org ??? [place] [employer]: www.apa.org Contact a health care provider if: ??? Your stress symptoms get worse. ??? You are unable to manage your stress at home. ??? You are struggling to stop using drugs or alcohol. Get help right away if: ??? You may be a danger to yourself or others. ??? You have any thoughts of or suicide. Get help right awayif you feel like you may hurt yourself or others, or have thoughts about taking your own life. Go to your nearest emergency room or: ??? Call 911. ??? Call the National Suicide Prevention Lifeline at or 715 in the [place] This is open 24 hours a day. ??? Text the Crisis Text Line at 661311. Summary ??? Feeling a certain amount of stress is normal, but severe or long-term (chronic) stress can affect your mental and physical health. ??? Chronic stress can put you at higher risk for anxiety, depression, and other health problems such as digestive problems, muscle aches, heart disease, high blood pressure, and stroke. ??? You may be at higher risk for stress-related problems if you do not get enough sleep, are in poor health, lack emotional support, or have a mental health disorder such as anxiety or depression. ??? Identify the source of your stress and your reaction to it. Try talking about stressful events with family, friends, or coworkers, finding a coping method, or getting support from spiritual resources. ??? If you need more help, talk with your health care provider about finding a support group or a mental health therapist. This information is not intended to replace advice given to you by your health care provider. Make sure you discuss any questions you have with your health care provider. Document Revised: 08/22/2021 Document Reviewed: 08/20/2021 Elsevier Patient Education ?? 2022 [employer] Follow Up Care 11/06/2022 11:17:44 With:Rahat Ryan Address: [address] [address]- Business (1) When:5 to 7 days Comments:Follow Up With Primary Care Provider With:[facility] Address: [address] [place] [address] Business (1) When: Unknown Patient Care team information Care Team Personnel Name: Chantel Atkins Position: Inpatient-Midlevel Member Role: Nurse Practitioner Address: Address: [address], [place] [id number] [place] [address] Name: Shelby THOMAS ([facility])Rahat Position: PX Physician - Resident Member Role: Primary Care Physician Address: Address: [id number] [place] [address] Name: Nazario Gregory DO Position: Physician-Emergency LP Member Role: Attending Physician Address: Address: [address] Name: Faye Wellington NP Position: ED-Midlevel LP Member Role: Nurse Practitioner Address: Address: [address], [place] [id number] [place] [address] Name: Emily Carmen RN Position: ED-Clinical LP Member Role: Emergency Room Nurse Care Team Related Persons Name: SHAYNA ACOSTA Name: NONE, GIVEN Name: SHAYNA GUZMÁN Name: BASILIA NORTON
--- OUTSIDE RECORDS SUMMARY | 2022-12-15 13:20 | XMS_ITS | Continuity of Care Document ---
Author Name Unknown Organization [facility] Address [address] [place] [address]- Care Team Providers Care Irrigation Worker Name Role Phone Shelby THOMAS ([facility])Rahat Primary Care Physician Encounter Self Financial Number [id number] Date(s): 09/27/21 - 10/08/22 [facility] [address] [place] [address]- [phone] Attending Physician: Rafa Marks MD Allergies, Adverse Reactions, Alerts Substance Reaction Severity Status penicillins unknown Unknown Active Talwin NX syncope Moderate Active sulfa drugs Flores Art Syndrome Severe Act tamiko codeine stomach upset Moderate Active Assessment and Plan Future Appointments Appointment Date:10/09/2022 02:00:00 PM Scheduled Provider:Shelby THOMAS ([facility])Rahat Location:[facility] Appointment Type:Established Patient Appointment Date:01/22/2023 11:00:00 AM Scheduled Provider:[facility]:Established Patient Appointment Date:05/06/2023 09:10:00 AM Scheduled Provider:Gómez Soriano MD Location:-[facility] Appointment Type:Established Patient Future Scheduled Tests Laboratory* Hepatitis C Virus Genotype, Serum 09/20/21 * Miscellaneous Send out 09/20/21 * Miscellaneous Send out 03/10/22 * Creatinine [facility] Radiology 03/21/22 * Hemogram 03/06/22 * HIV Antigen-Antibody by EIA 03/06/22 * Hgb A1C 03/06/22 * Hepatitis Bs Antibody 09/20/21 * PSA 03/06/22 * TSH w Reflex [...] tab, Refill(s) 0, Other: See Comments, Pharmacy: [facility], [id number], TAB, 1 tab By mouth Daily, 113.91, 09/12/22 8:55:00CDT, kg, Weight (kg) (Clinical) Start Date: 09/24/22 Status: Ordered nadolol 20 mg oral tablet 20 mg = 1 tab, PO, Daily, # 30 tab, Refill(s) 12, Pharmacy: [facility], [id number], 1 tab By mouth Daily, 113.91, 09/12/22 8:55:00 CDT, kg, Weight (kg) (Clinical) Start Date: 09/24/22 Status: Ordered Pepcid 20 mg oral tablet 20 mg, By mouth, BID, # 60 tab, Refill(s) 1, GERD, Pharmacy: [facility], [id number], TAB, 20 mg By mouth BID, 113.91, 09/12/22 8:55:00 CDT, kg, Weight (kg) (Clinical) Start Date: 09/24/22 Status: Ordered SEROquel 200 mg oral tablet 200 mg = 1 tab, By mouth, at bedtime, # 30 tab, Refill(s) 1, Insomnia, TAB Start Date: 04/24/22 Status: Ordered spironolactone 50 mg oral tablet 50 mg = 1 tab, By mouth, Daily, # 30 tab, Refill(s) 0, Pharmacy: [facility], [id number], TAB, 1 tab By mouth Daily, 123.3, 05/13/22 16:46:00 CDT, kg, Weight Start Date: 05/18/22 Status: Ordered Wellbutrin XL 150 mg/24 hours oral tablet, extended release 300 mg = 2 tab, By mouth, QAM, # 60 tab, Refill(s) 0, Depression, Pharmacy: [facility], [id number], XL TAB, 2 tab By mouth QAM, 113.91, 09/12/22 8:55:00 CDT, kg, Weight (kg) (Clinical) Start Date: 09/24/22 Status: Ordered Problem List Condition Confirmation Course [...] surgical case 3auto-populated from documented surgical case Social History Social History Type Response Smoking Status Never smoker; Smokel ess tobacco use: Never; Has the patient smoked in the last 365 days, even once? No entered on: 03/21/22 Sex Male Implantable Device List Procedure Provider Procedure Date Device Type Site Ureteroscopy with Holmium La ser Lithotri Unknown 02/27/22 Unknown Ureter, Left Device Identifier Serial Number Lot or Batch Number Manufacturing Date Expiration Date Distinct Identification Code MRI Safety Implantable Status Assigning Authority [id number] Unknown [id number] Unknown 06/27/25 Unknown Unknown Active GS1 Procedure Provider Procedure Date Device Type Site Unknown Unknown 01/14/22 Unknown Ureter, Left Device Identifier Serial Number Lot or Batch Number Manufacturing Date Expiration Date Distinct Identification Code MRI Safety Implantable Status Assigning Authority Unknown Unknown [id number] Unknown 09/16/26 Unknown Unknown Active Unkn own Procedure Provider Procedure Date Device Type Site Unknown Unknown 05/02/21 Unknown Ureter, Left Device Identifier Serial Number Lot or Batch Number Manufacturing Date Expiration Date Distinct Identification Code MRI Safety Implantable Status Assigning Authority [id number] Unknown [id number] Unknown 12/18/25 Unknown Unknown Active GS1 Patient Care team information Care Team Personnel Name: Chantel Atkins Position: Inpatient-Midlevel Member Role: Nurse Practitioner Address: Address: [address] Name: Shelby THOMAS ([facility])Rahat Position: PX Physician - Resident Member Role: Primary Care Physician Address: Address: [address] Care Team Related Persons Name: NONE, GIVEN Name: SHAYNA GUZMÁN Name: BASILIA NORTON
--- OUTSIDE RECORDS SUMMARY | 2022-12-15 13:20 | XMS_ITS | Continuity of Care Document ---
Author Name Unknown Organization [facility] Address [address] [place] [address]- Care Team Providers Care [address] Project Manager Name Role Phone Johnny Zheng DO Primary Care Physician Encounter Self Financial Number [id number] Date(s): 06/16/22 - 06/20/22 [facility] [address] [place] [address]- [phone] Encounter Diagnosis Colitis(Discharge Diagnosis) - 06/16/22 Chronic hepatitis C(Discharge Diagnosis) - 06/16/22 Esophageal varices(Discharge Diagnosis) - 06/16/22 Hypothyroidism(Discharge Diagnosis) - 06/16/22 Homeless(Discharge Diagnosis) - 06/16/22 Cirrhosis(Discharge Diagnosis) - 06/16/22 Hypertension(Discharge Diagnosis) - 06/16/22 Diarrhea(Discharge Diagnosis) - 06/16/22 Ascites(Discharge Diagnosis) - 06/16/22 Discharge Disposition: .Discharge to Home (Routine) Attending Physician: Michael Gonzalez MD Admitting Physician: Taty Morley DO Allergies, Adverse Reactions, Alerts Substance Reaction Severity Status penicillins unknown Unknown Active codeine stomach upset Moderate Active Talwin NX syncope Moderate Active sulfa drugs Flores Art Syndrome Severe Act tamiko Assessment and Plan Extracted from: Title:Instructions to Patients Author:Inga Vidal RN Date:06/20/22 [facility] Colitis Colitis is a condition in which the colon is inflamed. It can cause diarrhea, blood in the stool, and abdominal pain. Colitis can last a short time (be acute), or it may last a long time (become chronic). What are the causes? This condition may be caused by: ? ? Infections from viruses or bacteria. ? ? A reaction to medicine. ? ? Certain autoimmune diseases, such as Crohn's disease or ulcerative colitis. ? ? Radiation treatment. ? ? Decreased blood flow to the bowel (ischemia). What are the signs or symptoms? Symptoms of this condition include: ? ? Diarrhea, blood in the stool, or black, tarry stool. ? ? Pain in the joints or abdominal pain. ? ? Fever or fatigue. ? ? Vomiting. ? ? Weight loss. ? ? Bloating. ? ? Having fewer bowel movements than usual. ? ? A strong and sudden urge to have a bowel movement. ? ? Feeling like the bowel is not empty after a bowel movement. How is this diagnosed? This condition may be diagnosed based on a stool test and a blood test. You may also have other tests, such as: ? ? X-rays. ? ? CT scan. ? ? Colonoscopy. ? ? Endoscopy. ? ? Biopsy. How is this treated? Treatment for this condition depends on the cause. This condition may be treated with: ? ? Steps to rest the bowel, such as not eating or drinking for a period of time. ? ? Fluids that are given through an IV. ? ? Medicine for pain and diarrhea. ? ? Antibiotic medicines. ? ? Cortisone medicines. ? ? Surgery. Follow these instructions at home: Eating and drinking ? ? Follow instructions from your health care provider about eating or drinking restrictions. ? ? Drink enough fluid to keep your urine pale yellow. ? ? Work with a dietitian to determine whether certain foods cause your condition to flare up. ? ? Avoid foods or drinks that cause flare-ups. ? ? Eat a well-balanced diet. General instructions ? ? If you were prescribed an antibiotic medicine, take it as told by your health care provider. Do not stop taking the antibiotic even if you start to feel better. ? ? Take qjzb-zlh-cuiivwk and prescription medicines only as told by your health care provider. ? ? Keep all follow-up visits. This is important. Contact a health care provider if: ? ? Your symptoms do not go away. ? ? You develop new symptoms. Get help right away if: ? ? You have a fever that does not go away with treatment. ? ? You develop chills. ? ? You have extreme weakness, fainting, or dehydration. ? ? You vomit repeatedly. ? ? You develop severe pain in your abdomen. ? ? You pass bloody or tarry stool. Summary ? ? Colitis is a condition in which the colon is inflamed. Colitis can last a short time (be acute), or it may last a long time (become chronic). ? ? Treatment for this condition depends on the cause and may include resting the bowel, taking medicines, or having surgery. ? ? If you were prescribed an antibiotic medicine, take it as told by your health care provider. Do not stop taking the antibiotic even if you start to feel better. ? ? Get help right away if you develop severe pain in your abdomen. ? ? Keep all follow-up visits. This is important. This information is not intended to replace advice given to you by your health care provider. Make sure you discuss any questions you have with your health care provider. Document Revised: 10/02/2020 Document Reviewed: 10/02/2020 [employer] Patient Education ?? 2021 [employer] Fall Prevention in the Home, Adult Falls can cause injuries and can happen to people of all ages. There are many things you can do to make your home safe and to help prevent falls. Ask for help when making these changes. What actions can I take to prevent falls? General Instructions ? ? Use good lighting in all rooms. Replace any light bulbs that burn out. ? ? Turn on the lights in dark areas. Use night-lights. ? ? Keep items that you use often in krjy-ve-fhdxa places. Lower the shelves around your home if needed. ? ? Set up your furniture so you have a clear path. Avoid moving your furniture around. ? ? Do not have throw rugs or other things on the floor that can make you trip. ? ? Avoid walking on wet floors. ? ? If any of your floors are uneven, fix them. ? ? Add color or contrast paint or tape to clearly shayna and help you see: ? ? Grab bars or handrails. ? ? First and last steps of staircases. ? ? Where the edge of each step is. ? ? If you use a stepladder: ? ? Make sure that it is fully opened. Do not climb a closed stepladder. ? ? Make sure the sides of the stepladder are locked in place. ? ? Ask someone to hold the stepladder while you use it. ? ? Know where your pets are when moving through your home. What can I do in the bathroom? ? ? Keep the floor dry. Clean up any water on the floor right away. ? ? Remove soap buildup in the tub or shower. ? ? Use nonskid mats or decals on the floor of the tub or shower. ? ? Attach bath mats securely with double-sided, nonslip rug tape. ? ? If you need to sit down in the shower, use a plastic, nonslip stool. ? ? Install grab bars by the toilet and in the tub and shower. Do not use towel bars as grab bars. What can I do in the bedroom? ? ? Make sure that you have a light by your bed that is easy to reach. ? ? Do not use any sheets or blankets for your bed that hang to the floor. ? ? Have a firm chair with side arms that you can use for support when you get dressed. What can I do in the kitchen? ? ? Clean up any spills right away. ? ? If you need to reach something above you, use a step stool with a grab bar. ? ? Keep electrical cords out of the way. ? ? Do not use floor indonesian or wax that makes floors slippery. What can I do with my stairs? ? ? Do not leave any items on the stairs. ? ? Make sure that you have a light switch at the top and the bottom of the stairs. ? ? Make sure that there are handrails on both sides of the stairs. Fix handrails that are broken or loose. ? ? Install nonslip stair treads on all your stairs. ? ? Avoid having throw rugs at the top or bottom of the stairs. ? ? Choose a carpet that does not hide the edge of the steps on the stairs. ? ? Check carpeting to make sure that it is firmly attached to the stairs. Fix carpet that is loose or worn. What can I do on the outside of my home? ? ? Use bright outdoor lighting. ? ? Fix the edges of walkways and driveways and fix any cracks. ? ? Remove anything that might make you trip as you walk through a door, such as a raised step or threshold. ? ? Trim any bushes or trees on paths to your home. ? ? Check to see if handrails are loose or broken and that both sides of all steps have handrails. ? ? Install guardrails along the edges of any raised decks and porches. ? ? Clear paths of anything that can make you trip, such as tools or rocks. ? ? Have leaves, snow, or ice cleared regularly. ? ? Use sand or salt on paths during winter. ? ? Clean up any spills in your garage right away. This includes grease or oil spills. What other actions can I take? ? ? Wear shoes that: ? ? Have a low heel. Do not wear high heels. ? ? Have rubber bottoms. ? ? Feel good on your feet and fit well. ? ? Are closed at the toe. Do not wear open-toe sandals. ? ? Use tools that help you move around if needed. These include: ? ? Canes. ? ? Walkers. ? ? Scooters. ? ? Crutches. ? ? Review your medicines with your doctor. Some medicines can make you feel dizzy. This can increase your chance of falling. Ask your doctor what else you can do to help prevent falls. Where to find more information ? ? Centers for Disease Control and Prevention, [place]: www.cdc.gov ? ? [employer] [place] [employer] A[employer]: www.jay jay.nih.gov Contact a doctor if: ? ? You are afraid of falling at home. ? ? You feel weak, drowsy, or dizzy at home. ? ? You fall at home. Summary ? ? There are many simple things that you can do to make your home safe and to help prevent falls. ? ? Ways to make your home safe include removing things that can make you trip and installing grab bars in the bathroom. ? ? Ask for help when making these changes in your home. This information is not intended to replace advice given to you by your health care provider. Make sure you discuss any questions you have with your health care provider. Document Revised: 08/29/2020 Document Reviewed: 08/29/2020 [employer] Patient Education ?? 2021 [employer]. Medication Leaflets: metronidazole (oral/injection) (me tobias heard) FIRST Metronidazole, Flagyl What is the most important information I should know about metronidazole? Do not drink alcohol or consume foods or medicines that contain propylene glycol while you are taking metronidazole and for at least 3 days after you stop taking it. Metronidazole has caused cancer in animal studies. However, it is not known whether this would occur in humans. Ask your doctor about your risk. What is metronidazole? Metronidazole is an antibiotic that is used to treat bacterial infections of the vagina, stomach, liver, skin, joints, brain and spinal cord, lungs, heart, or bloodstream. Metronidazole is also used to treat trichomoniasis, a sexually transmitted disease caused by a parasite. Usually both sexual partners are treated at the same time, even if one has no symptoms. Do not use metronidazole to treat any condition that has not been checked by your doctor. Metronidazole may also be used for purposes not listed in this medication guide. What should I discuss with my healthcare provider before using metronidazole? You should not use this medicine if you are allergic to metronidazole, secnidazole, or tinidazole, or if: ? you drank alcohol in the past 3 days; ? ? you consumed foods or medicines that contain propylene glycol in the past 3 days; or ? ? you took disulfiram (Antabuse) within the past 14 days. May harm an unborn baby. Do not use metronidazole to treat trichomoniasis during the first trimester of . Tell your doctor if you become . Not all uses of metronidazole are approved for treating children and teenagers. Metronidazole is not approved to treat vaginal infections in girls who have not begun having menstrual periods. Tell your doctor if you have ever had: ? liver disease; ? ? kidney disease (or if you are on dialysis); ? ? a heart rhythm disorder; ? ? a stomach or intestinal disease such as Crohn's disease; ? ? a blood cell disorder such as anemia (lack of red blood cells) or low white blood cell (WBC) counts; ? ? a fungal infection anywhere in your body; or ? ? a nerve disorder. Metronidazole has caused cancer in animal studies. However, it is not known whether this would occur in humans. Ask your doctor about your risk. You should not breastfeed within 24 hours after using metronidazole. If you use a breast pump during this time, throw out the milk and do not feed it to your baby. How should I use metronidazole? Follow all directions on your prescription label and read all medication guides or instruction sheets. Use the medicine exactly as directed. Metronidazole oral is taken by mouth. Metronidazole injection is given as an infusion into a vein. A healthcare provider will give you this injection if you are unable to take the medicine by mouth. Shake the oral suspension (liquid). Measure a dose with the supplied measuring device (not a kitchen spoon). Swallow the extended-release tablet whole and do not crush, chew, or break it. If you are treating a vaginal infection, your sexual partner may also need to take metronidazole so you don't become reinfected. Metronidazole is usually given for up to 10 days in a row. You may need to repeat this dosage several weeks later. Keep using this medicine even if your symptoms quickly improve. Skipping doses could make your infection resistant to medication. Metronidazole will not treat a viral infection (flu or a common cold). Metronidazole will not treat a vaginal yeast infection. You may even develop a new vaginal yeast infection, which may need to be treated with antifungal medication. Tell your doctor if you have symptoms such as itching or discharge during or after treatment with metronidazole. Do not share this medicine with another person, even if they have the same symptoms you have. This medicine can affect the results of certain medical tests. Tell any doctor who treats you that you are using metronidazole. Store at room temperature away from moisture and heat. What happens if I miss a dose? Take the medicine as soon as you can, but skip the missed dose if it is almost time for your next dose. Do not take two doses at one time. What happens if I overdose? Seek emergency medical attention or call the Poison Help line at . Overdose symptoms may include nausea, vomiting, numbness, tingling, or problems with balance or muscle movement. What should I avoid while using metronidazole? While taking metronidazole and for 3 days after your last dose: Do not drink alcohol or consume foods, medicines, or other products that contain alcohol or propylene glycol. You may have unpleasant effects such as headaches, nausea, vomiting, stomach cramps, and warmth or tingling under your skin. What are the possible side effects of metronidazole? Get emergency medical help if you have signs of an allergic reaction (hives, itching, warmth or tingling; fever, joint pain; dry mouth, dry vagina; stuffy nose, difficult breathing, swelling in your face or throat) or a severe skin reaction (fever, sore throat, burning eyes, skin pain, red or purple skin rash with blistering and peeling). Call your doctor at once if you have: ? new or worsening symptoms of infection; ? ? painful or difficult urination; ? ? confusion; ? ? a light-headed feeling (like you might pass out); ? ? vaginal itching or discharge; or ? ? blisters or ulcers in your mouth, red or swollen gums, trouble swallowing. Stop taking the medicine and call your doctor right away if you have neurologic side effects (more likely to occur while taking metronidazole mcc): ? numbness, tingling, or burning pain in your hands or feet; ? ? vision problems, pain behind your eyes, seeing flashes of light; ? ? muscle weakness, problems with speech or coordination; ? ? trouble speaking or understanding what is said to you; ? ? a seizure; or ? ? fever, neck stiffness, and increased sensitivity to light. Metronidazole can cause life-threatening liver problems in people with Cockayne syndrome. If you have this condition, stop taking metronidazole and contact your doctor if you have signs of liver failure--nausea, stomach pain (upper right side), dark urine, jois-colored stools, or jaundice (yellowing of the skin or eyes). Side effects may be more likely in older adults. Common side effects may include: ? depression, trouble sleeping, feeling irritable; ? ? headache, dizziness, weakness; ? ? nausea, vomiting, loss of appetite, stomach pain; ? ? diarrhea, constipation; ? ? unpleasant metallic taste; ? ? rash, itching; ? ? vaginal itching or discharge, pain during sex; ? ? mouth sores; or ? ? swollen, red, or 'hairy' tongue. This is not a complete list of side effects and others may occur. Call your doctor for medical advice about side effects. You may report side effects to FDA at 7-392-ODA-3065. What other drugs will affect metronidazole? Sometimes it is not safe to use certain medicines at the same time. Some drugs can affect your blood levels of other drugs you use, which may increase side effects or make the medicines less effective. Tell your doctor about all your current medicines. Many drugs can affect metronidazole, especially: ? an antidepressant; ? ? asthma medication; ? ? busulfan or other cancer medicine; ? ? heart or blood pressure medication; ? ? lithium or other antipsychotic medicine; ? ? medicine to treat malaria, HIV, or other infection; or ? ? a blood thinner--warfarin, Coumadin, Jantoven. This list is not complete and many other drugs may affect metronidazole. This includes prescription and uahi-opp-gmsunvl medicines, vitamins, and herbal products. Not all possible drug interactions are listed here. Where can I get more information? Your pharmacist can provide more information about metronidazole. Remember, keep this and all other medicines out of the reach of children, never share your medicines with others, and use this medication only for the indication prescribed. Every effort has been made to ensure that the information provided by [employer]. ('[employer]') is accurate, up-to-date, and complete, but no guarantee is made to that effect. Drug information contained herein may be time sensitive. The [employer] information has been compiled for use by healthcare practitioners and consumers in the [place] and therefore [employer] does not warrant that uses outside of the [place] are appropriate, unless specifically indicated otherwise. [employer] drug information does not endorse drugs, diagnose patients or recommend therapy. [employer] drug information is an informational resource designed to assist licensed healthcare practitioners in caring for their patients and/or to serve consumers viewing this service as a supplement to, and not a substitute for, the expertise, skill, knowledge and judgment of healthcare practitioners. The absence of a warning for a given drug or drug combination in no way should be construed to indicate that the drug or drug combination is safe, effective or appropriate for any given patient. [employer] does not assume any responsibility for any aspect of healthcare administered with the aid of information [employer] provides. The information contained herein is not intended to cover all possible uses, directions, precautions, warnings, drug interactions, allergic reactions, or adverse effects. If you have questions about the drugs you are taking, check with your doctor, nurse or pharmacist. Copyright 0045-8760 [employer]. Version: 15.. Revision Date: 10/18/2020. Accessing??[employer]??Express??Patient??Portal Access medications, test results, radiology reports, and more through [employer] secure patient portal. Please be patient if waiting on lab results, as these can take several days to process. [place] online at??[email or web address].??Use your community medical record number (CMRN) located below to verify your identity on the Self-Enrollment form.We also offer the ability for you to securely connect other health management apps to your health record. See the [facility] Connection link on the website above for more details. Watch [employer] Patient Education Videos and Access Resources anytime online! Visit [email or web address]. Extracted from: Title:Discharge Note Author:Michael Gonzalez MD Jordan e:06/20/22 Discharge 06/20/22 9:42:00 CDT, Home/Self Care Discharge Follow Up 06/20/22 9:42:00 CDT, Provider/Time: Follow-up PCP in 7 days Discharge Diet 06/20/22 9:42:00 CDT, Discharge Diet: Regular Discharge Activity 06/20/22 9:42:00 CDT, As tolerated ? Extracted from: Title:Progress SOAP Note Author:Michael Gonzalez MD Date:06/19/22 1.??Colitis(Noninfective gas troenteritis and colitis, unspecified: K52.9) 2.??Chronic hepatitis C(Chronic viral hepatitis C: B18.2) 3.??Esophageal varices(Esophageal varices without bleeding: I85.00) 4.??Hypothyroidism(Hypothyroidism, unspecified: E03.9) 5.??Homeless(Homelessness unspecified: Z59.00) 6.??Cirrhosis(Unspecified cirrhosis of liver: K74.60) 7.??Hypertension(Essential (primary) hypertension: I10) 8.??Diarrhea(Diarrhea, unspecified: R19.7) 9.??Ascites(Other ascites: R18.8) Comment Case Management : ?Spoke with patient to discuss discharge planning needs. ??Patient reports [place] lives in homeless [place] and receives his mail at [address] [place] [address] in [place], [place]. ??Patient voices no difficulty with affording medications but does voice transportation needs at discharge. ??Will assist with arranging transportation for patient at discharge. ??Will provide community resource sheet at discharge. ??Patient voices no other needs, will continue to follow and assist as needed. ?? Nichelle Paul W - 06/18/2022 9:30 CDT? [1] ? PLAN: ? Patient 100% a regular diet. Colitis:?? CT scan with??thickening??of the haile of the ascending and transverse??colon.?Stool studies pending.? Cirrhosis:?? On lactulose, Aldactone.?? Low-density lesion??within right lobe??of the??liver, recommend outpatient follow-up ?? Recurrent ascites:?? No indication for paracentesis??at??this time,??no clinical concern??for SBP ?? History??of hepatitis-C Depression:?? wellbutrin, Risperdal, Seroquel, lithium level pending History??of esophageal??varices: outpatient EGD screening with GI Hypertension: aldactone Hypothyroidism:?? Continue levothyroxine Chronic??microcytic anemia Hypoalbuminemia??with underlying cirrhosis Mild tricuspid regurgitation ? Diet:??Full liquid diet DVT ppx:??SCDs Discharge Disposition planning:??pending Code status:??Full Code ? Extracted from: Title:Progress SOAP Note Author:Lisa KAMINSKI, [facility] Date:06/18/22 1.??Colitis(Noninfective gas troenteritis and colitis, unspecified: K52.9) 2.??Chronic hepatitis C(Chronic viral hepatitis C: B18.2) 3.??Esophageal varices(Esophageal varices without bleeding: I85.00) 4.??Hypothyroidism(Hypothyroidism, unspecified: E03.9) 5.??Homeless(Homelessness unspecified: Z59.00) 6.??Cirrhosis(Unspecified cirrhosis of liver: K74.60) 7.??Hypertension(Essential (primary) hypertension: I10) 8.??Diarrhea(Diarrhea, unspecified: R19.7) 9.??Ascites(Other ascites: R18.8) Comment Case Management : ?Spoke with patient to discuss discharge planning needs. ??Patient reports he lives in homeless [place] and receives his mail at [address] [place] [address] in [place], [place]. ??Patient voices no difficulty with affording medications but does voice transportation needs at discharge. ??Will assist with arranging transportation for patient at discharge. ??Will provide community resource sheet at discharge. ??Patient voices no other needs, will continue to follow and assist as needed. ?? Arlene Nichelle HEWITT W - 06/18/2022 9:30 CDT? [1] ? PLAN: ?? Start regular diet Colitis:?? CT scan with??thickening??of the haile of the ascending and transverse??colon.?Stool studies pending.? Cirrhosis:?? On lactulose, Aldactone.?? Low-density lesion??within right lobe??of the??liver, recommend outpatient follow-up ?? Recurrent ascites:?? No indication for paracentesis??at??this time,??no clinical concern??for SBP ?? History??of hepatitis-C Depression:?? wellbutrin, Risperdal, Seroquel, lithium level pending History??of esophageal??varices: outpatient EGD screening with GI Hypertension: aldactone Hypothyroidism:?? Continue levothyroxine Chronic??microcytic anemia Hypoalbuminemia??with underlying cirrhosis Mild tricuspid regurgitation ? Diet:??Full liquid diet DVT ppx:??SCDs Discharge Disposition planning:??pending Code status:??Full Code ? Extracted from: Title:Progress SOAP Note Author:Nino Morley DO [place] Date:06/17/22 1.??Colitis(Noninfective gas troenteritis and colitis, unspecified: K52.9) Ordered: CBC-d CMP zCBC Automated Diff ?? 2.??Chronic hepatitis C(Chronic viral hepatitis C: B18.2) Ordered: CBC-d CMP zCBC Automated Diff ?? 3.??Esophageal varices(Esophageal varices without bleeding: I85.00) Ordered: CBC-d CMP zCBC Automated Diff ?? 4.??Hypothyroidism(Hypothyroidism, unspecified: E03.9) Ordered: CBC-d CMP zCBC Automated Diff ?? 5.??Homeless(Homelessness unspecified: Z59.00) Ordered: CBC-d CMP zCBC Automated Diff ?? 6.??Cirrhosis(Unspecified cirrhosis of liver: K74.60) Ordered: CBC-d CMP zCBC Automated Diff ?? 7.??Hypertension(Essential (primary) hypertension: I10) Ordered: CBC-d CMP zCBC Automated Diff ?? 8.??Diarrhea(Diarrhea, unspecified: R19.7) Ordered: CBC-d CMP zCBC Automated Diff ?? 9.??Ascites(Other ascites: R18.8) Ordered: CBC-d CMP zCBC Automated Diff ?? Orders: Liquid Full [place] Level [place] Level Colitis:?? CT scan with??thickening??of the haile of the ascending and transverse??colon.?Stool studies pending.?? Advanced to full liquids ?? Cirrhosis:?? On lactulose, Aldactone.?? Low-density lesion??within right lobe??of the??liver, recommend outpatient follow-up ?? Recurrent ascites:?? No indication for paracentesis??at??this time,??no clinical concern??for SBP ?? History??of hepatitis-C Depression:?? wellbutrin, Risperdal, Seroquel, lithium level pending History??of esophageal??varices: outpatient EGD screening with GI Hypertension: aldactone Hypothyroidism:?? Continue levothyroxine Chronic??microcytic anemia Hypoalbuminemia??with underlying cirrhosis Mild tricuspid regurgitation ? Diet:??Full liquid diet DVT ppx:??SCDs Discharge Disposition planning:??pending Code status:??Full Code ? Extracted from: Title:Admission H&P Note Author:Nino Morley DO Date:06/16/22 1.??Colitis(Noninfective gas troenteritis and colitis, unspecified: K52.9) 2.??Chronic hepatitis C(Chronic viral hepatitis C: B18.2) 3.??Esophageal varices(Esophageal varices without bleeding: I85.00) 4.??Hypothyroidism(Hypothyroidism, unspecified: E03.9) 5.??Homeless(Homelessness unspecified: Z59.00) 6.??Cirrhosis(Unspecified cirrhosis of liver: K74.60) 7.??Hypertension(Essential (primary) hypertension: I10) 8.??Diarrhea(Diarrhea, unspecified: R19.7) 9.??Ascites(Other ascites: R18.8) Orders: Admit Campylobacter EIA Giardia/Crypto/Entamoeba Screen Salmonella Culture Shiga-toxin E. coli EIA Shigella Culture Colitis:?? CT scan with??thickening??of the haile of the ascending and transverse??colon.?Clear liquid diet. With diarrhea,??check stool studies.?? Patient does report being??homeless??and drinking??some stream??water??recently, check??Giardia ?? Cirrhosis:?? On lactulose, Aldactone.?? Low-density lesion??within right lobe??of the??liver, recommend outpatient follow-up ?? Recurrent ascites:?? No indication for paracentesis??at??this time,??no clinical concern??for SBP ?? History??of hepatitis-C Depression:?? wellbutrin, Risperdal, Seroquel History??of esophageal??varices Hypertension Hypothyroidism:?? Continue levothyroxine Chronic??microcytic anemia Hypoalbuminemia??with underlying cirrhosis Mild tricuspid regurgitation ? Diet:??Clear liquid??diet ?? DVT ppx:??SCDs ?? Discharge Disposition planning:??pending ?? Code status:??Full Code ? Extracted from: Title:Abdominal pain Author:Bautista Cruz MD Date:06/16/22 Impression and Plan Diagnosis Hypothyroidism (QMT81-PK E03.9) Homeless (HAZ60-PV Z59.00) Cirrhosis (XZF29-QJ K74.60) Hypertension (AVH04-ZD I10) Diarrhea (UBY43-CP R19.7) Ascites (DWB78-IG R18.8) Colitis (ZNQ40-DS K52.9) Chronic hepatitis C (EHQ46-QJ B18.2) Esophageal varices (UIK73-ZP I85.00) Plan Condition: Improved. Disposition: Admit time 06/16/2022 15:50:00, Admit to Inpatient Unit, Taty Morley DO Counseled: Patient, Regarding diagnosis, Regarding diagnostic results, Regarding treatment plan, Patient indicated understanding of instructions, Need to admit. Future Appointments Appointment Date:07/01/2022 03:20:00 PM Scheduled Provider:Nadira Cobian NP Location:[facility] [place] Appointment Type:Hospital Follow Up (New) Appointment Date:07/31/2022 11:45:00 AM Scheduled Provider:Rafa Marks MD Location:-[facility] Appointment Type:Established Patient Appointment Date:05/06/2023 09:10:00 AM Scheduled Provider:Gómez Soriano MD Location:-[facility] Appointment Type:Established Patient Diagnostic Tests Pending * Salmonella Culture 06/16/22 * Shigella Culture 06/16/22 * Shiga-toxin E. coli EIA 06/16/22 * Campylobacter EIA 06/16/22 * Giardia/Crypto/Entamoeba Screen 06/16/22 Future Scheduled Tests Laboratory* Hepatitis C Virus Genotype, Serum 09/20/21 * Miscellaneous Send out 09/20/21 * Miscellaneous Send out 03/10/22 * Creatinine Clinic [...] 0, TAB Start Date: 05/16/22 Status: Ordered levothyroxine 50 mcg (0.05 mg) oral tablet 50 mcg = 1 tab, By mouth, Daily, # 30 tab, Refill(s) 0, Other: See Comments, Pharmacy: [id number], [id number], TAB, 1 tab By mouth Daily, 115, 04/15/22 10:17:00 [employer], kg, Weight Start Date: 04/15/22 Status: Ordered lithium 300 mg oral capsule 300 mg = 1 cap, By mouth, BID, # 60 cap, Refill(s) 1, Mood Stabilization, CAP Start Date: 04/24/22 Status: Ordered metroNIDAZOLE 500 mg oral tablet 500 mg, = 1 tab, By mouth, Q8H, 5 Days, 15 tab, 0, 0, 06/25/22 9:41:00 CDT, Substitution Permitted,[facility], 74, Height, 06/16/22 9:01:00 CDT, in, 113.4, Weight, 06/16/22 9:01:00 CDT, kg Start Date: 06/20/22 Stop Date: 06/25/22 Status: Ordered oxyCODONE 5 mg oral tablet 5 mg, = 1 tab, By mouth, Q4H, PRN Pain Moderate, 10 tab, 0, 0, Substitution Permitted, [facility], 74, Height, 05/14/22 2:22:00 CDT, in, 123.3, Weight, 05/13/22 16:46:00 CDT, kg Start Date: 05/18/22 Status: Ordered Pepcid 20 mg oral tablet 20 mg, By mouth, BID, # 60 tab, Refill(s) 1, GERD, TAB Start Date: 04/24/22 Status: Ordered RisperDAL 2 mg oral tablet 2 mg = 1 tab, By mouth, TID, # 90 tab, Refill(s) 1, Psychosis, TAB Start Date: 04/24/22 Status: Ordered SEROquel 200 mg oral tablet 200 mg = 1 tab, By mouth, at bedtime, # 30 tab, Refill(s) 1, Insomnia, TAB Start Date: 04/24/22 Status: Ordered spironolactone 50 mg oral tablet 50 mg = 1 tab, By mouth, Daily, # 30 tab, Refill(s) 0, Pharmacy: [facility], [id number], TAB, 1 tab By mouth Daily, 123.3, 05/13/22 16:46:00 CDT, kg, Weight Start Date: 05/18/22 Status: Ordered Wellbutrin XL 150 mg/24 hours oral tablet, extended release 300 mg = 2 tab, By mouth, QAM, # 60 tab, Refill(s) 0, Depression, Pharmacy: [facility], [id number], XL TAB, 2 tab By mouth QAM, 115, 04/15/22 10:17:00 [employer], kg, Weight Start Date: 04/15/22 Status: Ordered Problem List Condition Confirmation Course Effective Dates Status H ealth Status Informant Abdominal pain Confirmed Active Increased ammonia level Confirmed Active Ascites Confirmed Active Benign prostate hyperplasia Confirmed Active Hematuria Confirmed Active Chronic hepatitis C Confirmed Active Esophageal varices Confirmed Active Ex-smoker [...] surgical case Results Laboratory List Name Date [place] Level 06/17/22 CBC-d (CBC with diff) 06/17/22 CMP 06/17/22 zCBC Automated Diff 06/17/22 Lactic Acid 06/16/22 zTroponin I - HS 2 Hr 06/16/22 Troponin I - Series High-Sensitivity 06/16 CBC-d 06/16/22 CMP 06/16/22 Lipase 06/16/22 Urinalysis w/ microscopy 06/16/22 zCBC Automated Diff 06/16/22 [place] Level 06/16/22 Most recent to oldest [Reference Range]: 1 2 Anion Gap [2-15 mEq/L] 5 mEq/L (06/17/22 7:53 AM) 1 mEq/L *LOW* (06/16/22 9:55 AM) Troponin I HS Delta 0-2 hr [<=3 ng/L] 0 ng/L 1 (06/16/22 12:54 PM) Troponin I HS [<=15 ng/L] <3 ng/L (06/16/22 12:54 PM) <3 ng/L (06/16/22 11:00 AM) RTE Casts None Seen (06/16/22 9:55 AM) RTEs None Seen (06/16/22 9:55 AM) Glucose, Serum/Plasma [70-100 mg/dL] 93 mg/dL (06/17/22 7:53 AM) 101 mg/dL *HI* (06/16/22 9:55 AM) WBC [4.8-10.8 Thous/mm3] 1.6 Thous/mm3 *LOW* (06/17/22 7:53 AM) 3.5 Thous/mm3 *LOW* (06/16/22 9:55 AM) Hct [42.0-52.0 %] 25.1 % *LOW* (06/17/22 7:53 AM) 27.6 % *LOW* (06/16/22 9:55 AM) Hgb [14.0-18.0 g/dL] 7.4 g/dL *LOW* (06/17/22 7:53 AM) 8.0 g/dL *LOW* (06/16/22 9:55 AM) RBC [4.60-6.20 Million/mm3] 3.56 Million /mm3 *LOW* (06/17/22 7:53 AM) 3.85 Million/mm3 *LOW* (06/16/22 9:55 AM) MCV [80.0-100.0 fl] 70.5 fl *LOW* (06/17/22 7:53 AM) 71.7 fl *LOW* (06/16/22 9:55 AM) MCH [26.0-34.0 pg] 20.8 pg *LOW* (06/17/22 7:53 AM) 20.8 pg *LOW* (06/16/22 9:55 AM) MCHC [31.0-36.5 g/dL] 29.5 g/dL *LOW* (06/17/22 7:53 AM) 29.0 g/dL *LOW* (06/16/22 9:55 AM) RDW [10.4-14.4 %] 23.9 % *HI* (06/17/22 7:53 AM) 23.9 % *HI* (06/16/22 9:55 AM) Platelets [130-440 Thous/mm3] 144 Thous/ mm3 (06/17/22 7:53 AM) 169 Thous/mm3 (06/16/22 9:55 AM) MPV [9.4-12.4 fl] ---- fl *NA* (06/17/22 7:53 AM) ---- fl *NA* (06/16/22:55 AM) AutoNeutrophil [43.0-78.0 %] 60.0 % (06/17/22 7:53 AM) 61.4 % (06/16/22 9:55 AM) AutoLymphs [20.0-40.0 %] 26.1 % (06/17/22 7:53 AM) 24.8 % (06/16/22 9:55 AM) AutoMono [2.0-10.0 %] 8.5 % (06/17/22 7:53 AM) 8.9 % (06/16/22 9:55 AM) AutoEo [0.0-7.0 %] 3.0 % (06/17/22 7:53 AM) 2.6 % (06/16/22 9:55 AM) Sodium [136-145 mEq/L] 143 mEq/L (06/17/22 7:53 AM) 138 mEq/L (06/16/22 9:55 AM) Potassium [3.5-5.1 mEq/L] 4.0 mEq/L (06/17/22 7:53 AM) 4.6 mEq/L (06/16/22 9:55 AM) Chloride [98-107 mEq/L] 113 mEq/L *HI* (06/17/22 7:53 AM) 114 mEq/L *HI* (06/16/22 9:55 AM) AbsNeut [2.0-8.0 Thous/mm3] 1.0 Thous/mm 3 *LOW* (06/17/22 7:53 AM) 2.1 Thous/mm3 (06/16/22 9:55 AM) CO2 [21-32 mEq/L] 25 mEq/L (06/17/22 7:53 AM) 23 mEq/L (06/16/22 9:55 AM) BUN [7-18 mg/dL] 8 mg/dL (06/17/22 7:53 AM) 7 mg/dL (06/16/22 9:55 AM) Creatinine [0.73-1.18 mg/dL] 0.64 mg/dL *LOW* (06/17/22 7:53 AM) 0.65 mg/dL *LOW* (06/16/22 9:55 AM) AbsLymph [1.0-4.0 Thous/mm3] 0.4 Thous/m m3 *LOW* (06/17/22 7:53 AM) 0.9 Thous/mm3 *LOW* (06/16/22 9:55 AM) AbsMono [0.1-1.0 Thous/mm3] 0.1 Thous/mm 3 (06/17/22 7:53 AM) 0.3 Thous/mm3 (06/16/22 9:55 AM) Bilirubin, Total [0.2-1.0 mg/dL] 1.7 mg/ dL *HI* (06/17/22 7:53 AM) 1.6 mg/dL *HI* (06/16/22 9:55 AM) AbsEo [0.0-0.5 Thous/mm3] 0.0 Thous/mm3 (06/17/22 7:53 AM) 0.1 Thous/mm3 (06/16/22 9:55 AM) AbsBaso [0.0-0.2 Thous/mm3] 0.0 Thous/mm 3 (06/17/22 7:53 AM) 0.0 Thous/mm3 (06/16/22 9:55 AM) AutoBaso [0.0-2.5 %] 1.8 % (06/17/22 7:53 AM) 1.4 % (06/16/22 9:55 AM) Calcium [8.3-10.6 mg/dL] 8.0 mg/dL *LOW* (06/17/22 7:53 AM) 8.1 mg/dL *LOW* (06/16/22 9:55 AM) Protein Total [6.4-8.5 g/dL] 5.1 g/dL *LOW* (06/17/22 7:53 AM) 5.6 g/dL *LOW* (06/16/22 9:55 AM) Albumin [3.4-5.0 g/dL] 2.7 g/dL *LOW* (06/17/22 7:53 AM) 2.9 g/dL *LOW* (06/16/22 9:55 AM) AST [15-37 U/L] 84 U/L *HI* (06/17/22 7:53 AM) 103 U/L *HI* (06/16/22 9:55 AM) Alk Phos [45-117 U/L] 89 U/L (06/17/22 7:53 AM) 92 U/L (06/16/22 9:55 AM) ALT [10-49 U/L] 51 U/L *HI* (06/17/22 7:53 AM) 55 U/L *HI* (06/16/22 9:55 AM) Appearance [Clear] Clear (06/16/22 9:55 AM) Color [Yellow] Dark Yellow *NA* (06/16/22 9:55 AM) Sp. [place] [1.001-1.035] 1.021 (06/16/22 9:55 AM) Ketones [Negative] Negative (06/16/22 9:55 AM) Glucose [Negative] Negative (06/16/22 9:55 AM) Protein [Negative] Negative (06/16/22 9:55 AM) Blood [Negative] Negative (06/16/22 9:55 AM) Nitrites UA [Negative] Negative (06/16/22 9:55 AM) Lactic Acid [0.40-2.00 mmol/L] 1.10 mmol /L (06/16/22 12:54 PM) Lipase, Serum/Plasma [12-53 U/L] 48 U/L (06/16/22 9:55 AM) [place] Level [0.6-1.2 mEq/L] 0.4 mEq/L *LOW* (06/17/22 2:54 PM) <0.2 mEq/L *LOW* (06/16/22 7:53 AM) Bilirubin UA [Negative] 1+ *ABN* (06/16/22 9:55 AM) Urobilinogen [1.0 mg/dL] 2.0 mg/dL *ABN* (06/16/22 9:55 AM) Leuko Esterase UA [Negative] Negative (06/16/22 9:55 AM) pH UA [5.0-9.0] 7.0 (06/16/22 9:55 AM) RBC [0-2/hpf] 0-2/hpf (06/16/22 9:55 AM) WBC [0-5/hpf] 0-5/hpf (06/16/22 9:55 AM) Hyaline Casts [0-2/lpf] 0-2/lpf (06/16/22 9:55 AM) Bacteria [None Seen] None Seen (06/16/22 9:55 AM) Epithelium [None Seen] None Seen (06/16/22 9:55 AM) eGFR [>=60 mL/min/1.73 m2] 126 mL/min/1. 73 m2 (06/17/22 7:53 AM) 124 mL/min/1.73 m2 (06/16/22 9:55 AM) eGFR if [>= 60 mL/min/1.73 m2] 152 mL/min/1.73 m2 (06/17/22 7:53 AM) 150 mL/min/1.73 m2 (06/16/22 9:55 AM) Volume 3 mL *NA* (06/16/22 9:55 AM) Imm. Grans % [0-5 %] <5 % (06/17/22 7:53 AM) <5 % (06/16/22 9:55 AM) Imm. Grans # [0.0-0.5 Thous/mm3] <0.5 Th ous/mm3 (06/17/22 7:53 AM) <0.5 Thous/mm3 (06/16/22 9:55 AM) ANC-AbsNeutCount 1.0 Thous/mm3 *NA* (06/17/22 7:53 AM) 2.1 Thous/mm3 *NA* (06/16/22 9:55 AM) 1Result Comment: Calculated by rule: [id number] Radiology Reports * Exam Date Time Procedure Performing Provider Status 06/16/22 2:[address] Abd Pelvis w Contrast Peggy Cruz MD; Auth (Verified) Notes: (CT Abd Pelvis w Contrast) Reason For Exam: Abdominal Pain - IV Contrast REPORT CT Abd Pelvis w Contrast PROCEDURE INFORMATION: Exam: CT Abdomen And Pelvis With Contrast Exam date and time: 06/16/2022 2:02 PM Age: 66 years old Clinical indication: Abdominal pain - iv contrast TECHNIQUE: Imaging protocol: Computed tomography of the abdomen and pelvis with contrast. Total images: 279 Radiation optimization: All CT scans at this facility use at least one of these dose optimization techniques: automated exposure control; mA and/or kV adjustment per patient size (includes targeted exams where dose is matched to clinical indication); or iterative reconstruction. REPORTING DATA: Count of CT and Cardiac NM exams in prior 12 months: This patient has received 4 known CTs and 0 known cardiac nuclear medicine studies in the 12 months prior to the current study. COMPARISON: CT Abd Pelvis wo Contrast 05/04/2022 5:12 PM FINDINGS: Liver: Cirrhotic changes of the liver with area of low density again noted within the right lobe of the liver, similar to the prior study. Gallbladder and bile ducts: Normal. No calcified stones. No ductal dilation. Pancreas: Mild peripancreatic fat stranding is present. Spleen: Splenomegaly. Splenic calcifications are present. Adrenal glands: Normal. No mass. Kidneys and ureters: Normal. No hydronephrosis. Stomach and bowel: Thickening of the haile of the ascending and transverse colon consistent with mild colitis. Surrounding fat stranding is present. Mild diverticulosis is present in the distal colon. Appendix: No evidence of appendicitis. Intraperitoneal space: Intra-abdominal ascites is present. Vasculature: Unremarkable. No abdominal aortic aneurysm. Lymph nodes: No mesenteric or retroperitoneal lymphadenopathy. Urinary bladder: Unremarkable as visualized. Reproductive: The prostate gland contains benign-appearing calcifications that are likely parenchymal. Mild enlargement of the prostate. Bones/joints: The lumbar spine demonstrates mild degenerative changes at multiple levels. Soft tissues: Fat filled ventral wall hernia present. IMPRESSION: 1. Thickening of the haile of the ascending and transverse colon consistent with mild colitis. Surrounding fat stranding is present. 2. Cirrhotic changes of the liver with area of low density again noted within the right lobe of the liver, similar to the prior study. 3. Splenomegaly. 4. Intra-abdominal ascites is present. 5. Mild diverticulosis is present in the distal colon. 6. No mesenteric or retroperitoneal lymphadenopathy. 7. The lumbar spine demonstrates mild degenerative changes at multiple levels. 8. Mild enlargement of the prostate. Electronically signed by: Geovani Damian DO, [employer], 06/16/2022 14:43 Rickie KAMINSKI, Geovani Hunt Signed 06/16/22 14:43:13 (Electronic Signature) Technologist RS * Exam Date Time Procedure Performing Provider Status 06/16/22 11:05 AM XR Chest 1 View Anthony KAMINSKI, Bautista [facility] (Verified) Notes: (XR Chest 1 View) Reason For Exam: Chest Pain REPORT XR Chest 1 View PROCEDURE INFORMATION: Exam: XR Chest Exam date and time: 06/16/2022 10:52 AM Age: 66 years old Clinical indication: PT reports constant, burning, stabbing, epigastric pain onset yesterday. Rated at 7/10. Notes associated diarrhea. Reports symptoms feel similar to previous renal stones, but pain is located in different area. HX: HTN. Former smoker. TECHNIQUE: Imaging protocol: Radiologic exam of the chest. Views: 1 view. COMPARISON: DX XR Ribs Right 3 View w PA Chest Routine 04/15/2022 5:26 PM FINDINGS: Lungs: Unremarkable. No consolidation. Pleural spaces: Unremarkable. No pleural effusion. No pneumothorax. Heart/Mediastinum: Borderline cardiomegaly. Bones/joints: Unremarkable. IMPRESSION: No acute findings. Electronically signed by: Frederick Mo MD, [employer], 06/16/2022 11:24 Frederick Mo MD Signed 06/16/22 11:24:08 (Electronic Signature) Technologist [facility] Vital Signs Most recent to oldest [Reference Range]: 1 2 3 Blood Pressure 112/67 (06/20/22 11:30 AM) 127/70 (06/20/22 7:39 AM) Blood Pressure 132/73mmHg (06/20/22 3:43 AM) Height (inches) (Clinical) 74 in (06/20/22 5:00 AM) 74 in (06/19/22 5:00 AM) 74 in (06/18/22 4:00 AM) Weight (kg) (Clinical) 106.3 kg (06/20/22 5:00 AM) 107.4 kg (06/19/22 5:00 AM) 107.8 kg (06/18/22 4:35 AM) BMI (Clinical) 30 kg/m2 (06/20/22 5:00 AM) 30.3 kg/m2 (06/19/22 5:00 AM) 30.4 kg/m2 (06/18/22 4:00 AM) Scale Type Bed (06/20/22 5:00 AM) Bed (06/18/22 4:00 AM) Bed (06/17/22 5:00 AM) Social History Social History Type Response [...] Code MRI Safety Implantable Status Assigning Authority [id number] Unknown [id number] Unknown 06/27/25 Unknown Unknown Active GS1 Procedure Provider Procedure Date Device Type Site Unknown Unknown 01/14/22 Unknown Ureter, Left Device Identifier Serial Number Lot or Batch Number Manufacturing Date Expiration Date Distinct Identification Code MRI Safety Implantable Status Assigning Authority Unknown Unknown [id number] Unknown 09/16/26 Unknown Unknown Active Unkn own Procedure Provider Procedure Date Device Type Site Unknown Unknown 05/02/21 Unknown Ureter, Left Device Identifier Serial Number Lot or Batch Number Manufacturing Date Expiration Date Distinct Identification Code MRI Safety Implantable Status Assigning Authority [id number] Unknown [id number] Unknown 12/18/25 Unknown Unknown Active GS1 Hospital Discharge Instructions Patient Education 06/20/2022 11:51:26 Colitis Colitis Colitis is a condition in which the colon is inflamed. It can cause diarrhea, blood in the stool, and abdominal pain. Colitis can last a short time (be acute), or it may last a long time (become chronic). What are the causes? This condition may be caused by: ??? Infections from viruses or bacteria. ??? A reaction to medicine. ??? Certain autoimmune diseases, such as Crohn's disease or ulcerative colitis. ??? Radiation treatment. ??? Decreased blood flow to the bowel (ischemia). What are the signs or symptoms? Symptoms of this condition include: ??? Diarrhea, blood in the stool, or black, tarry stool. ??? Pain in the joints or abdominal pain. ??? Fever or fatigue. ??? Vomiting. ??? Weight loss. ??? Bloating. ??? Having fewer bowel movements than usual. ??? A strong and sudden urge to have a bowel movement. ??? Feeling like the bowel is not empty after a bowel movement. How is this diagnosed? This condition may be diagnosed based on a stool test and a blood test. You may also have other tests, such as: ??? X-rays. ??? CT scan. ??? Colonoscopy. ??? Endoscopy. ??? Biopsy. How is this treated? Treatment for this condition depends on the cause. This condition may be treated with: ??? Steps to rest the bowel, such as not eating or drinking for a period of time. ??? Fluids that are given through an IV. ??? Medicine for pain and diarrhea. ??? Antibiotic medicines. ??? Cortisone medicines. ??? Surgery. Follow these instructions at home: Eating and drinking ??? Follow instructions from your health care provider about eating or drinking restrictions. ??? Drink enough fluid to keep your urine pale yellow. ??? Work with a dietitian to determine whether certain foods cause your condition to flare up. ??? Avoid foods or drinks that cause flare-ups. ??? Eat a well-balanced diet. General instructions ??? If you were prescribed an antibiotic medicine, take it as told by your health care provider. Donot stop taking the antibiotic even if you start to feel better. ??? Take cplp-cna-ktwyfqg and prescription medicines only as told by your health care provider. ??? Keep all follow-up visits. This is important. Contact a health care provider if: ??? Your symptoms do not go away. ??? You develop new symptoms. Get help right away if: ??? You have a fever that does not go away with treatment. ??? You develop chills. ??? You have extreme weakness, fainting, or dehydration. ??? You vomit repeatedly. ??? You develop severe pain in your abdomen. ??? You pass bloody or tarry stool. Summary ??? Colitis is a condition in which the colon is inflamed. Colitis can last a short time (be acute), or it may last a long time (become chronic). ??? Treatment for this condition depends on the cause and may include resting the bowel, taking medicines, or having surgery. ??? If you were prescribed an antibiotic medicine, take it as told by your health care provider. Donot stop taking the antibiotic even if you start to feel better. ??? Get help right away if you develop severe pain in your abdomen. ??? Keep all follow-up visits. This is important. This information is not intended to replace advice given to you by your health care provider. Make sure you discuss any questions you have with your health care provider. Document Revised: 10/02/2020 Document Reviewed: 10/02/2020 [employer] Patient Education ?? 2021 [employer]. 06/20/2022 11:51:26 Fall Prevention in the Home, Adult, [id number] Fall Prevention in the Home, Adult Falls can cause injuries and can happen to people of all ages. There are many things you can do to make your home safe and to help prevent falls. Ask for help when making these changes. What actions can I take to prevent falls? General Instructions ??? Use good lighting in all rooms. Replace any light bulbs that burn out. ??? Turn on the lights in dark areas. Use night-lights. ??? Keep items that you use often in vvtw-rv-vmkte places. Lower the shelves around your home if needed. ??? Set up your furniture so you have a clear path. Avoid moving your furniture around. ??? Do not have throw rugs or other things on the floor that can make you trip. ??? Avoid walking on wet floors. ??? If any of your floors are uneven, fix them. ??? Add color or contrast paint or tape to clearly shayna and help you see: ??? Grab bars or handrails. ??? First and last steps of staircases. ??? Where the edge of each step is. ??? If you use a stepladder: ??? Make sure that it is fully opened. Do not climb a closed stepladder. ??? Make sure the sides of the stepladder are locked in place. ??? Ask someone to hold the stepladder while you use it. ??? Know where your pets are when moving through your home. What can I do in the bathroom? Keep the floor dry. Clean up any water on the floor right away. ??? Remove soap buildup in the tub or shower. ??? Use nonskid mats or decals on the floor of the tub or shower. ??? Attach bath mats securely with double-sided, nonslip rug tape. ??? If you need to sit down in the shower, use a plastic, nonslip stool. ??? Install grab bars by the toilet and in the tub and shower. Do not use towel bars as grab bars. What can I do in the bedroom? Make sure that you have a light by your bed that is easy to reach. ??? Do not use any sheets or blankets for your bed that hang to the floor. ??? Have a firm chair with side arms that you can use for support when you get dressed. What can I do in the kitchen? Clean up any spills right away. ??? If you need to reach something above you, use a step stool with a grab bar. ??? Keep electrical cords out of the way. ??? Do not use floor indonesian or wax that makes floors slippery. What can I do with my stairs? Do not leave any items on the stairs. ??? Make sure that you have a light switch at the top and the bottom of the stairs. ??? Make sure that there are handrails on both sides of the stairs. Fix handrails that are broken or loose. ??? Install nonslip stair treads on all your stairs. ??? Avoid having throw rugs at the top or bottom of the stairs. ??? Choose a carpet that does not hide the edge of the steps on the stairs. ??? Check carpeting to make sure that it is firmly attached to the stairs. Fix carpet that is looseor worn. What can I do on the outside of my home? Use bright outdoor lighting. ??? Fix the edges of walkways and driveways and fix any cracks. ??? Remove anything that might make you trip as you walk through a door, such as a raised step or threshold. ??? Trim any bushes or trees on paths to your home. ??? Check to see if handrails are loose or broken and that both sides of all steps have handrails. ??? Install guardrails along the edges of any raised decks and porches. ??? Clear paths of anything that can make you trip, such as tools or rocks. ??? Have leaves, snow, or ice cleared regularly. ??? Use sand or salt on paths during winter. ??? Clean up any spills in your garage right away. This includes grease or oil spills. What other actions can I take? Wear shoes that: ??? Have a low heel. Do not wear high heels. ??? Have rubber bottoms. ??? Feel good on your feet and fit well. ??? Are closed at the toe. Do not wear open-toe sandals. ??? Use tools that help you move around if needed. These include: ??? Canes. ??? Walkers. ??? Scooters. ??? Crutches. ??? Review your medicines with your doctor. Some medicines can make you feel dizzy. This can increase your chance of falling. Ask your doctor what else you can do to help prevent falls. Where to find more information ??? Centers for Disease Control and Prevention, [place]: www.cdc.gov ??? [employer] [place] [employer] A[place]: www.jay jay.nih.gov Contact a doctor if: ??? You are afraid of falling at home. ??? You feel weak, drowsy, or dizzy at home. ??? You fall at home. Summary ??? There are many simple things that you can do to make your home safe and to help prevent falls. ??? Ways to make your home safe include removing things that can make you trip and installing grab bars in the bathroom. ??? Ask for help when making these changes in your home. This information is not intended to replace advice given to you by your health care provider. Make sure you discuss any questions you have with your health care provider. Document Revised: 08/29/2020 Document Reviewed: 08/29/2020 Elsevier Patient Education ?? 2021 [employer] Follow Up Care 06/16/2022 08:53:51 With:[facility] Address: [address] [place] [address] [address]- Business (1) When:07/01/2022 15:20:00 Comments:Pt notified by phone. [email or web address] will follow up on your hospital visit & will also assign a permanent primary care physician for future medical care. The provider at this clinic is not licensed to prescribe controlled or narcotic medications. Please bring photo ID & health insurance card. Progress note * Lisa KAMINSKI, Michael: PERFORM Event Display: Progress Notes Authored Date: [id number] Hospital Course Patient is??a??66-year-old male??with history??of hepatitis-C, cirrhosis, chronic??anemia, hypothyroidism??and depression??that presented??to the emergency department due to concern??for abdominal??pain??and diarrhea.?? Patient noted??to??have CT findings??of colitis in the ascending and transverse? ?colon.?? Patient is currently??homeless??and??had reported some??stream water intake??therefore stool??studies??pending.?? Symptoms have somewhat??improved advancing??diet. Subjective Patient states he is improving.?Improving diarrhea no fever Objective Vitals & Measurements ??Vital Signs (last 24 hrs)?Last Charted?Minimum?Maximum?Temp?97.6 (JUNE 19:13)?97.6 (JUNE 19:13)?98.2 (JUNE 18 12:03)?Heart Rate?82 (JUNE 19 07:13)?76 (JUNE 18 12:03)?84 (JUNE 18 15:41)?Resp Rate?18 (JUNE 19 07:13)?15 (JUNE 18 20:08)?18 (JUNE 19:13)?SBP?117 (JUNE 19:13)?116 (JUNE 18 12:03)?128 (JUNE 18:41)?DBP?71 (JUNE 19:13)?64 (JUNE 18 20:08)?71 (JUNE 19:13)?SpO2?95 (JUNE 19:13)?91 (JUNE 19:28)?96 (JUNE 18:41)?O2?Room a (JUNE 19:16)?Room a (JUNE 18 12:03)?Room a (JUNE 18:03)?Weight?107.4 (JUNE 19 05:00)?107.4 (JUNE 19 05:00)?107.4 (JUNE 19 05:00)?? Physical Exam ?Vital signs reviewed ?General:?? Awake??and alert HEENT:?? Head normocephalic, atraumatic Cardiovascular:?? Regular rate??and rhythm Respiratory:?? On room air, lungs clear??auscultation without??wheezing or??rhonchi Abdomen:?? Mild??distension, tenderness??to palpation??epigastric??region, hyperactive??bowel sounds, no guarding??or??rigidity Neurologic:?Babinski??negative,??patient moves all 4 extremities ?Psychiatric:?? Calm, cooperative Extremities:?? No acute??deformity, trace??pitting??edema bilaterally Assessment/Plan 1.??Colitis(Noninfective gastroenteritis and colitis, unspecified: K52.9) 2.??Chronic hepatitis C(Chronic viral hepatitis C: B18.2) 3.??Esophageal varices(Esophageal varices without bleeding: I85.00) 4.??Hypothyroidism(Hypothyroidism, unspecified: E03.9) 5.??Homeless(Homelessness unspecified: Z59.00) 6.??Cirrhosis(Unspecified cirrhosis of liver: K74.60) 7.??Hypertension(Essential (primary) hypertension: I10) 8.??Diarrhea(Diarrhea, unspecified: R19.7) 9.??Ascites(Other ascites: R18.8) Comment Case Management : ?Spoke with patient to discuss discharge planning needs. ??Patient reports he lives in homeless camp and receives his mail at [address] [place], [place] [address] in [place], [place]. ??Patient voices no difficulty with affording medications but does voice transportation needs at discharge. ??Will assist with arranging transportation for patient at discharge. ??Will provide community resource sheet at discharge. ??Patient voices no other needs, will continue to follow and assist as needed. ?? Arlene HEWITTNichelle W - 06/18/2022 9:30 CDT?? [1] ?? PLAN: ?? Patient 100% a regular diet. Colitis:?? CT scan with??thickening??of the haile of the ascending and transverse??colon.?Stool studies pending.? Cirrhosis:?? On lactulose, Aldactone.?? Low-density lesion??within right lobe??of the??liver, recommend outpatient follow-up ?? Recurrent ascites:?? No indication for paracentesis??at??this time,??no clinical concern??for SBP ?? History??of hepatitis-C Depression:?? wellbutrin, Risperdal, Seroquel, lithium level pending History??of esophageal??varices: outpatient EGD screening with GI Hypertension: aldactone Hypothyroidism:?? Continue levothyroxine Chronic??microcytic anemia Hypoalbuminemia??with underlying cirrhosis Mild tricuspid regurgitation ? Diet:??Full liquid diet DVT ppx:??SCDs Discharge Disposition planning:??pending Code status:??Full Code Other Medications Medications (9) Active Scheduled: (9) buPROPion 300 mg XL TAB (24 hr) ??300 mg 1 tab, By mouth, QAM famotidine 20 mg TAB ??20 mg 1 tab, By mouth, BID levothyroxine 50 mcg TAB ??50 mcg 1 tab, By mouth, Daily lithium carbonate 300 mg IR CAP ??300 mg 1 cap, By mouth, BID metroNIDAZOLE 500mg/100ml IVPB Premix ??500 mg 100 mL, IV, Q8H QUEtiapine 200 mg ??IR TAB ??200 mg 1 tab, By mouth, at bedtime risperiDONE 2 mg TAB ??2 mg 1 tab, By mouth, TID sodium chloride 0.9% INJ SYR 5 mL ??5 mL, IVP, Q12H spironolactone *HAZ* 50 mg TAB ??50 mg 1 tab, By mouth, Daily Continuous: (0) Lab Results Labs??(Last two charted values on this encounter) WBC 1.6 ??(JUNE 17) 3.5 ??(JUNE 16) Hgb 7.4 ??(JUNE 17) 8.0 ??(JUNE 16) Hct 25.1 ??(JUNE 17) 27.6 ??(JUNE 16) Platelets 144 ??(JUNE 17) 169 ??(JUNE 16) Na 143 ??(JUNE 17) 138 ??(JUNE 16) K 4.0 ??(JUNE 17) 4.6 ??(JUNE 16) Cl 113 ??(JUNE 17) 114 ??(JUNE 16) CO2 25 ??(JUNE 17) 23 ??(JUNE 16) BUN 8 ??(JUNE 17) 7 ??(JUNE 16) Cr 0.64 ??(JUNE 17) 0.65 ??(JUNE 16) Ca ?8.0 ??(JUNE 17) ?8.1 ??(JUNE 16) ProteinT ?5.1 ??(JUNE 17) ?5.6 ??(JUNE 16) Albumin ?2.7 ??(JUNE 17) ?2.9 ??(JUNE 16) Bilirubin ,Total ?1.7 ??(JUNE 17) ?1.6 ??(JUNE 16) Alk Phos ?89 ??(JUNE 17) ?92 ??(JUNE 16) ALT ?51 ??(JUNE 17) ?55 ??(JUNE 16) AST ?84 ??(JUNE 17) ?103 ??(JUNE 16) Lipase 48 ??(JUNE 16) ?? Lactic Acid 1.10 ??(JUNE 16) ?? Glucose,Plasma 93 ??(JUNE 17) 101 ??(JUNE 16) [1]??Case Management Discharge Planning Assessment; Arlene Nichelle HEWITT 06/18/2022 09:30 CDT Electronically signed by:Michael Gonzalez MD 06/20/22 08:14 * Michael Gonzalez MD: PERFORM Event Display: Progress Notes Authored Date: [id number] Hospital Course Patient is??a??66-year-old male??with history??of hepatitis-C, cirrhosis, chronic??anemia, hypothyroidism??and depression??that presented??to the emergency department due to concern??for abdominal??pain??and diarrhea.?? Patient noted??to??have CT findings??of colitis in the ascending and transverse? ?colon.?? Patient is currently??homeless??and??had reported some??stream water intake??therefore stool??studies??pending.?? Symptoms have somewhat??improved advancing??diet. Subjective Patient feels better??than??yesterday.?? He states??he has an??appetite and wants to eat.? Objective Vitals & Measurements ??Vital Signs (last 24 hrs)?Last Charted?Minimum?Maximum?Temp?98.2 (JUNE 18 12:03)?97.8 (JUNE 18:44)?98.6 (JUNE 17:47)?Heart Rate?76 (JUNE 18 12:03)?74 (JUNE 17 19:47)?78 (JUNE 18 04:37)?Resp Rate?18 (JUNE 18:44)?18 (JUNE 17:47)?18 (JUNE 17:47)?SBP?116 (JUNE 18 12:03)?116 (JUNE 18 12:03)?127 (JUNE 18 04:37)?DBP?66 (JUNE 18 12:03)?66 (JUNE 18 12:03)?72 (JUNE 18 04:37)?SpO2?95 (JUNE 18 12:03)?95 (JUNE 18:37)?97 (JUNE 17 19:47)?O2?Room a (JUNE 18:03)?Room a (JUNE 17:29)?Room a (JUNE 17:)?Weight?107.8 (JUNE 18 04:35)?107.8 (JUNE 18 04:00)?107.8 (JUNE 18 04:00)?? Physical Exam Vital signs reviewed ??General:?? Awake??and alert HEENT:?? Head normocephalic, atraumatic Cardiovascular:?? Regular rate??and rhythm Respiratory:?? On room air, lungs clear??auscultation without??wheezing or??rhonchi Abdomen:?? Mild??distension, tenderness??to palpation??epigastric??region, hyperactive??bowel sounds, no guarding??or??rigidity Neurologic:?Babinski??negative,??patient moves all 4 extremities Psychiatric:?? Calm, cooperative Extremities:?? No acute??deformity, trace??pitting??edema bilaterally Assessment/Plan 1.??Colitis(Noninfective gastroenteritis and colitis, unspecified: K52.9) 2.??Chronic hepatitis C(Chronic viral hepatitis C: B18.2) 3.??Esophageal varices(Esophageal varices without bleeding: I85.00) 4.??Hypothyroidism(Hypothyroidism, unspecified: E03.9) 5.??Homeless(Homelessness unspecified: Z59.00) 6.??Cirrhosis(Unspecified cirrhosis of liver: K74.60) 7.??Hypertension(Essential (primary) hypertension: I10) 8.??Diarrhea(Diarrhea, unspecified: R19.7) 9.??Ascites(Other ascites: R18.8) Comment Case Management : ?Spoke with patient to discuss discharge planning needs. ??Patient reports he lives in homeless camp and [facility] [place]. ??Patient voices no difficulty with affording medications but does voice transportation needs at discharge. ??Will assist with arranging transportation for patient at discharge. ??Will provide community resource sheet at discharge. ??Patient voices no other needs, will continue to follow and assist as needed. ?? Arlene HEWITT, Nichelle W - 06/18/2022 9:30 CDT?? [1] ? PLAN: ?? Start regular diet Colitis:?? CT scan with??thickening??of the haile of the ascending and transverse??colon.?Stool studies pending.? Cirrhosis:?? On lactulose, Aldactone.?? Low-density lesion??within right lobe??of the??liver, recommend outpatient follow-up ?? Recurrent ascites:?? No indication for paracentesis??at??this time,??no clinical concern??for SBP ?? History??of hepatitis-C Depression:?? wellbutrin, Risperdal, Seroquel, lithium level pending History??of esophageal??varices: outpatient EGD screening with GI Hypertension: aldactone Hypothyroidism:?? Continue levothyroxine Chronic??microcytic anemia Hypoalbuminemia??with underlying cirrhosis Mild tricuspid regurgitation ? Diet:??Full liquid diet DVT ppx:??SCDs Discharge Disposition planning:??pending Code status:??Full Code Other Medications Medications (9) Active Scheduled: (9) buPROPion 300 mg XL TAB (24 hr) ??300 mg 1 tab, By mouth, QAM famotidine 20 mg TAB ??20 mg 1 tab, By mouth, BID levothyroxine 50 mcg TAB ??50 mcg 1 tab, By mouth, Daily lithium carbonate 300 mg IR CAP ??300 mg 1 cap, By mouth, BID metroNIDAZOLE 500mg/100ml IVPB Premix ??500 mg 100 mL, IV, Q8H QUEtiapine 200 mg ??IR TAB ??200 mg 1 tab, By mouth, at bedtime risperiDONE 2 mg TAB ??2 mg 1 tab, By mouth, TID sodium chloride 0.9% INJ SYR 5 mL ??5 mL, IVP, Q12H spironolactone *HAZ* 50 mg TAB ??50 mg 1 tab, By mouth, Daily Continuous: (0) Lab Results Labs??(Last two charted values on this encounter) WBC 1.6 ??(JUNE 17) 3.5 ??(JUNE 16) Hgb 7.4 ??(JUNE 17) 8.0 ??(JUNE 16) Hct 25.1 ??(JUNE 17) 27.6 ??(JUNE 16) Platelets 144 ??(JUNE 17) 169 ??(JUNE 16) Na 143 ??(JUNE 17) 138 ??(JUNE 16) K 4.0 ??(JUNE 17) 4.6 ??(JUNE 16) Cl 113 ??(JUNE 17) 114 ??(JUNE 16) CO2 25 ??(JUNE 17) 23 ??(JUNE 16) BUN 8 ??(JUNE 17) 7 ??(JUNE 16) Cr 0.64 ??(JUNE 17) 0.65 ??(JUNE 16) Ca ?8.0 ??(JUNE 17) ?8.1 ??(JUNE 16) ProteinT ?5.1 ??(JUNE 17) ?5.6 ??(JUNE 16) Albumin ?2.7 ??(JUNE 17) ?2.9 ??(JUNE 16) Bilirubin ,Total ?1.7 ??(JUNE 17) ?1.6 ??(JUNE 16) Alk Phos ?89 ??(JUNE 17) ?92 ??(JUNE 16) ALT ?51 ??(JUNE 17) ?55 ??(JUNE 16) AST ?84 ??(JUNE 17) ?103 ??(JUNE 16) Lipase 48 ??(JUNE 16) ?? Lactic Acid 1.10 ??(JUNE 16) ?? Glucose,Plasma 93 ??(JUNE 17) 101 ??(JUNE 16) [1]??Case Management Discharge Planning Assessment; Arlene HEWITTNichelle 06/18/2022 09:30 CDT Electronically signed by:Michael Gonzalez MD 06/18/22 13:18 * Taty Morley DO: PERFORM Event Display: Progress Notes Authored Date: [id number] Hospital Course Patient is??a??66-year-old male??with history??of hepatitis-C, cirrhosis, chronic??anemia, hypothyroidism??and depression??that presented??to the emergency department due to concern??for abdominal??pain??and diarrhea.?? Patient noted??to??have CT findings??of colitis in the ascending and transverse? ?colon.?? Patient is currently??homeless??and??had reported some??stream water intake??therefore stool??studies??pending.?? Symptoms have somewhat??improved advancing??diet. Subjective Patient awake??in bed at??time of exam eating??Jell-O.?? He reports??that his nausea??has resolved,has not??had any??further??bowel??movements.?? Requesting??increase??diet but noted continued abdominal??pain. ?? RN??at bedside denies??any??concerns. Objective Vitals & Measurements ??Vital Signs (last 24 hrs)?Last Charted?Minimum?Maximum?Temp?97.7 (JUNE 17:29)?97.2 (JUNE 16 19:25)?97.9 (JUNE 17:43)?Heart Rate?62 (JUNE 17:29)?56 (JUNE 16 18:55)?73 (JUNE 16 23:41)?Resp Rate?16 (JUNE 17 03:43)?16 (JUNE 16 12:35)?18 (JUNE 16 19:25)?SBP?116 (JUNE 17:29)?116 (JUNE 17:29)?168 (JUNE 16:25)?DBP?64 (JUNE 17:)?62 (JUNE 17:43)?83 (JUNE 16:25)?SpO2?95 (JUNE 17:)?95 (JUNE 17:43)?100 (JUNE 16 12:05)?O2?Room a (JUNE 17:30)?Room a (JUNE 16:35)?Room a (JUNE 16:35)?Weight?110 (JUNE 17:00)?110 (JUNE 17:)?113.4 (JUNE 16:51)?? Physical Exam General:?? Awake??and alert HEENT:?? Head normocephalic, atraumatic Cardiovascular:?? Regular rate??and rhythm Respiratory:?? On room air, lungs clear??auscultation without??wheezing or??rhonchi Abdomen:?? Mild??distension, tenderness??to palpation??epigastric??region, hyperactive??bowel sounds, no guarding??or??rigidity Neurologic:?? Cranial nerves 2-12 grossly intact??without??focal deficit Psychiatric:?? Calm, cooperative Extremities:?? No acute??deformity, trace??pitting??edema bilaterally Assessment/Plan 1.??Colitis(Noninfective gastroenteritis and colitis, unspecified: K52.9) Ordered: CBC-d CMP zCBC Automated Diff ?? 2.??Chronic hepatitis C(Chronic viral hepatitis C: B18.2) Ordered: CBC-d CMP zCBC Automated Diff ?? 3.??Esophageal varices(Esophageal varices without bleeding: I85.00) Ordered: CBC-d CMP zCBC Automated Diff ?? 4.??Hypothyroidism(Hypothyroidism, unspecified: E03.9) Ordered: CBC-d CMP zCBC Automated Diff ?? 5.??Homeless(Homelessness unspecified: Z59.00) Ordered: CBC-d CMP zCBC Automated Diff ?? 6.??Cirrhosis(Unspecified cirrhosis of liver: K74.60) Ordered: CBC-d CMP zCBC Automated Diff ?? 7.??Hypertension(Essential (primary) hypertension: I10) Ordered: CBC-d CMP zCBC Automated Diff ?? 8.??Diarrhea(Diarrhea, unspecified: R19.7) Ordered: CBC-d CMP zCBC Automated Diff ?? 9.??Ascites(Other ascites: R18.8) Ordered: CBC-d CMP zCBC Automated Diff ?? Orders: Liquid Full C[place] Level C[place] Level Colitis:?? CT scan with??thickening??of the haile of the ascending and transverse??colon.?Stool studies pending.?? Advanced to full liquids ?? Cirrhosis:?? On lactulose, Aldactone.?? Low-density lesion??within right lobe??of the??liver, recommend outpatient follow-up ?? Recurrent ascites:?? No indication for paracentesis??at??this time,??no clinical concern??for SBP ?? History??of hepatitis-C Depression:?? wellbutrin, Risperdal, Seroquel, lithium level pending History??of esophageal??varices: outpatient EGD screening with GI Hypertension: aldactone Hypothyroidism:?? Continue levothyroxine Chronic??microcytic anemia Hypoalbuminemia??with underlying cirrhosis Mild tricuspid regurgitation ? Diet:??Full liquid diet DVT ppx:??SCDs Discharge Disposition planning:??pending Code status:??Full Code Other Medications Medications (8) Active Scheduled: (8) buPROPion 300 mg XL TAB (24 hr) ??300 mg 1 tab, By mouth, QAM famotidine 20 mg TAB ??20 mg 1 tab, By mouth, BID levothyroxine 50 mcg TAB ??50 mcg 1 tab, By mouth, Daily metroNIDAZOLE 500mg/100ml IVPB Premix ??500 mg 100 mL, IV, Q8H QUEtiapine 200 mg ??IR TAB ??200 mg 1 tab, By mouth, at bedtime risperiDONE 2 mg TAB ??2 mg 1 tab, By mouth, TID sodium chloride 0.9% INJ SYR 5 mL ??5 mL, IVP, Q12H spironolactone *HAZ* 50 mg TAB ??50 mg 1 tab, By mouth, Daily Continuous: (0) Lab Results Labs??(Last two charted values on this encounter) WBC 1.6 ??(JUNE 17) 3.5 ??(JUNE 16) Hgb 7.4 ??(JUNE 17) 8.0 ??(JUNE 16) Hct 25.1 ??(JUNE 17) 27.6 ??(JUNE 16) Platelets 144 ??(JUNE 17) 169 ??(JUNE 16) Na 143 ??(JUNE 17) 138 ??(JUNE 16) K 4.0 ??(JUNE 17) 4.6 ??(JUNE 16) Cl 113 ??(JUNE 17) 114 ??(JUNE 16) CO2 25 ??(JUNE 17) 23 ??(JUNE 16) BUN 8 ??(JUNE 17) 7 ??(JUNE 16) Cr 0.64 ??(JUNE 17) 0.65 ??(JUNE 16) Ca ?8.0 ??(JUNE 17) ?8.1 ??(JUNE 16) ProteinT ?5.1 ??(JUNE 17) ?5.6 ??(JUNE 16) Albumin ?2.7 ??(JUNE 17) ?2.9 ??(JUNE 16) Bilirubin ,Total ?1.7 ??(JUNE 17) ?1.6 ??(JUNE 16) Alk Phos ?89 ??(JUNE 17) ?92 ??(JUNE 16) ALT ?51 ??(JUNE 17) ?55 ??(JUNE 16) AST ?84 ??(JUNE 17) ?103 ??(JUNE 16) Lipase 48 ??(JUNE 16) ?? Lactic Acid 1.10 ??(JUNE 16) ?? Glucose,Plasma 93 ??(JUNE 17) 101 ??(JUNE 16) Electronically signed by:Taty Morley DO 06/17/22 11:27 History and physical note * Taty Morley DO: PERFORM Event Display: History and Physicals Authored Date: [id number] Chief Complaint Abdominal pain and burning. Started yesterday. Says it feels like kidney stone Care Team Primary Care Physician??- Norm THOMAS, Johnny Mujica Attending Physician - Bautista Cruz MD Arrival Date/Time??- 06/16/2022 08:53:00 History of Present Illness Patient is a??66-year-old male??with??medical history??of cirrhosis, chronic??hepatitis-C, depression, history??of esophageal varices, hypertension??that presented??to the emergency department due toconcern??for abdominal??pain??and diarrhea.?? Patient reports??that he is??homeless due to his druze??beliefs but does not??withhold??from medical care.?? He reports??that he has been out of lactulose but??otherwise??taking all previously prescribed medications.?? Reports??that over??the past??2 days he has??had fevers, chills, nausea??and abdominal??pain.?? States??that pain??is worse in theright lower and epigastric region.?? Reports??that he??has??had some episodes??of diarrhea,??no blood in his stool,??no melanotic stools.?? Denies??any abdominal??distension??like??he had previously?? requiring??paracentesis.?? Patient reports??that??he has been around some sick??contacts.?? States that??he did recently??drink some stream water??a few days ago??but typically only??drinks??bottled water. ?? Patient??was??seen and evaluated??in the emergency department noted to have concern for??colitis??and admitted for further evaluation??and treatment. Review of Systems GENERAL: Patient??admits??fever,??reports??chills EYE: Patient??denies??changes in vision. ENT: Patient denies changes in hearing or nasal congestion CV: Patient??denies??chest pain,??denies??palpitations, and??denies??edema RESP: Patient??denies??cough,??denies??wheezing, and??denies??dyspnea. GI: ??Reports nausea, vomiting abdominal??pain and diarrhea, no melena??or hematochezia : Patient??denies??pain with urination and??denies??blood in urine MS: Patient??denies??muscle pain,??denies??joint pain,??denies??back pain, and??denies??weakness. SKIN: Patient??denies??new rashes or skin changes NEURO: Patient??denies??headaches,??denies??new weakness,??denies??paraesthesias HEME/LYMPH: Patient??denies??easy bleeding and??denies??easy bruising. Physical Exam Vitals & Measurements T:??98.8?F?? HR:??60?? RR:??16?? BP:??142/69?? SpO2:??100%?? WT:??113.4??kg?? General:?? Awake??and alert HEENT:?? Head normocephalic, atraumatic Cardiovascular:?? Regular rate??and rhythm Respiratory:?? On room air, lungs clear??auscultation without??wheezing or??rhonchi Abdomen:?? Mild??distension, tenderness??to palpation??epigastric??region, hyperactive??bowel sounds, no guarding??or??rigidity Neurologic:?? Cranial nerves 2-12 grossly intact??without??focal deficit Psychiatric:?? Calm, cooperative Extremities:?? No acute??deformity, trace??pitting??edema bilaterally Assessment/Plan 1.??Colitis(Noninfective gastroenteritis and colitis, unspecified: K52.9) 2.??Chronic hepatitis C(Chronic viral hepatitis C: B18.2) 3.??Esophageal varices(Esophageal varices without bleeding: I85.00) 4.??Hypothyroidism(Hypothyroidism, unspecified: E03.9) 5.??Homeless(Homelessness unspecified: Z59.00) 6.??Cirrhosis(Unspecified cirrhosis of liver: K74.60) 7.??Hypertension(Essential (primary) hypertension: I10) 8.??Diarrhea(Diarrhea, unspecified: R19.7) 9.??Ascites(Other ascites: R18.8) Orders: Admit Campylobacter EIA Giardia/Crypto/Entamoeba Screen Salmonella Culture Shiga-toxin E. coli EIA Shigella Culture Colitis:?? CT scan with??thickening??of the haile of the ascending and transverse??colon.?Clear liquid diet. With diarrhea,??check stool studies.?? Patient does report being??homeless??and drinking??some stream??water??recently, check??Giardia ?? Cirrhosis:?? On lactulose, Aldactone.?? Low-density lesion??within right lobe??of the??liver, recommend outpatient follow-up ?? Recurrent ascites:?? No indication for paracentesis??at??this time,??no clinical concern??for SBP ?? History??of hepatitis-C Depression:?? wellbutrin, Risperdal, Seroquel History??of esophageal??varices Hypertension Hypothyroidism:?? Continue levothyroxine Chronic??microcytic anemia Hypoalbuminemia??with underlying cirrhosis Mild tricuspid regurgitation ? Diet:??Clear liquid??diet DVT ppx:??SCDs Discharge Disposition planning:??pending Code status:??Full Code Problem List/Past Medical History Ongoing Abdominal pain Ascites Benign prostate hyperplasia Chronic hepatitis C Depression, major Esophageal varices Ex-smoker Hematuria Homeless Hypertension Hypothyroidism Increased ammonia level Peripheral neuropathy Polysubstance abuse Renal calculus Supraumbilical hernia Ureteral stenosis Historical No qualifying data Procedure/Surgical History ???Gastroscopy - Endo (05/05/2022)???Esophagogastroduodenoscopy (02/27/2021)???Gastroscopy - Endo (08/01/2017)???gallbladder (1999)???back surgery ()???lithotripsy Medications Home Medications (10) Active acetaminophen 325 mg oral tablet??650 mg = 2 tab, PRN, PO/per tube, Q6H lactulose 10 g/15 mL oral syrup??40 g = 60 mL, PO/per tube, BID levothyroxine 50 mcg (0.05 mg) oral tablet??50 mcg = 1 tab, By mouth, Daily lithium 300 mg oral capsule??300 mg = 1 cap, By mouth, BID oxyCODONE 5 mg oral tablet??5 mg = 1 tab, PRN, By mouth, Q4H Pepcid 20 mg oral tablet??20 mg, By mouth, BID RisperDAL 2 mg oral tablet??2 mg = 1 tab, By mouth, TID SEROquel 200 mg oral tablet??200 mg = 1 tab, By mouth, at bedtime spironolactone 50 mg oral tablet??50 mg = 1 tab, By mouth, Daily Wellbutrin XL 150 mg/24 hours oral tablet, extended release??300 mg = 2 tab, By mouth, QAM Allergies sulfa drugs??(Flores Art Syndrome) Talwin NX??(syncope) codeine??(stomach upset) penicillins??(unknown) Social History Social History Alcohol ??Current, 1-2 times per year;??Comment(s):??BAL 0.0 ??04/15/22 BABS 0.00 ??BAL 0.00 ??BAL 0 ??Cannot drink anymore throws up blood. ??BABS 0.00 on 05/28/21. ??Last drink months ago. ??3-4 times yearly Substance Abuse ??Current;??Comment(s):??UDS Pos Buprenorphine ??04/15/22 Said used crystal meth a month ago and pot 2 weeks ago. ??UDS + Benzos and Buprenorphrene. ??UDS+ Positive for Benzodiazepines and buprenorphine. Patient reports first time taking buprenorphine in long time. ??Does use Buprenorphine recreationally and Xanax, Hydrocodone, Oxycodone, and Klonipin. ??using Buprenorphine recreationally no Klonipin, Oxycodone, no Hydrocodone, no Xanax ??UDS + benzos. ??UDS + for buprenorphine ??states he has used methamphetamine and Buprenorphine and Klonopin that he has gotten illegally Tobacco ??Smoking Status: Never smoker. ??Smokeless tobacco use: Never. Family History Heart disease: Negative: MOTHER, FATHER, SISTER, BROTHER, AUNT, COUSIN, MGF, MGM, PGF, PGM and UNCLE. Lab Results Labs??(Last two charted values on this encounter) WBC 3.5 ??(JUNE 16) ?? Hgb 8.0 ??(JUNE 16) ?? Hct 27.6 ??(JUNE 16) ?? Platelets 169 ??(JUNE 16) ?? Na 138 ??(JUNE 16) ?? K 4.6 ??(JUNE 16) ?? Cl 114 ??(JUNE 16) ?? CO2 23 ??(JUNE 16) ?? BUN 7 ??(JUNE 16) ?? Cr 0.65 ??(JUNE 16) ?? Ca ?8.1 ??(JUNE 16) ?? ProteinT ?5.6 ??(JUNE 16) ?? Albumin ?2.9 ??(JUNE 16) ?? Bilirubin ,Total ?1.6 ??(JUNE 16) ?? Alk Phos ?92 ??(JUNE 16) ?? ALT ?55 ??(JUNE 16) ?? AST ?103 ??(JUNE 16) ?? Lipase 48 ??(JUNE 16) ?? Lactic Acid 1.10 ??(JUNE 16) ?? Glucose,Plasma 101 ??(JUNE 16) ?? Diagnostic Results Radiology Results:?? CT Abd Pelvis w Contrast - ??Auth (Verified) - 06/16/22 14:02 ( Rickie KAMINSKI, Geovani Hunt )?? IMPRESSION: 1. ??Thickening of the haile of the ascending and transverse colon consistent with mildcolitis. ?? Surrounding fat stranding is present. ?? 2. ??Cirrhotic changes of the liver with area of low density again noted within the right lobe of the liver, similar to the prior study. ?? 3. ??Splenomegaly. ?? 4. ??Intra-abdominal ascites is present. ?? 5. ??Mild diverticulosis is present in the distal colon. ?? 6. ??No mesenteric or retroperitoneal lymphadenopathy. ?? 7. ??The lumbar spine demonstrates mild degenerative changes at multiple levels. ?? 8. ??Mild enlargement of the prostate.?? Electronically signed by: Geovani Damian DO, ??[facility], 06/16/2022 14:43 ?? XR Chest 1 View - ??Auth (Verified) - 06/16/22 10:52 ( Chepe KAMINSKI, Frederick Carlos )?? IMPRESSION: No acute findings. ??Electronically signed by: Frederick Mo MD, ??[facility], 06/16/2022 11:24 Electronically signed by:Taty Morley DO 06/16/22 16:14 Discharge summary * Michael Gonzalez MD: PERFORM Event Display: Discharge Summary Authored Date: [id number] Discharge Information Admit date:06/16/2022 Discharge date:06/20/2022 Primary Care Physician:Johnny Zheng DO Attending Physician:Michael Gonzalez MD Admitting Physician:Taty Morley DO Discharge Diagnosis Colitis Chronic hepatitis C Esophageal varices Hypothyroidism Homeless Cirrhosis Hypertension Diarrhea Ascites Procedures During Visit No qualifying data available Admission History History of Present Illness Patient is a??66-year-old male??with??medical history??of cirrhosis, chronic??hepatitis-C, depression, history??of esophageal varices, hypertension??that presented??to the emergency department due toconcern??for abdominal??pain??and diarrhea.?? Patient reports??that he is??homeless due to his druze??beliefs but does not??withhold??from medical care.?? He reports??that he has been out of lactulose but??otherwise??taking all previously prescribed medications.?? Reports??that over??the past??2 days he has??had fevers, chills, nausea??and abdominal??pain.?? States??that pain??is worse in theright lower and epigastric region.?? Reports??that he??has??had some episodes??of diarrhea,??no blood in his stool,??no melanotic stools.?? Denies??any abdominal??distension??like??he had previously?? requiring??paracentesis.?? Patient reports??that??he has been around some sick??contacts.?? States that??he did recently??drink some stream water??a few days ago??but typically only??drinks??bottled water. ?? Patient??was??seen and evaluated??in the emergency department noted to have concern for??colitis??and admitted for further evaluation??and treatment. [1] Hospital Course Patient is??a??66-year-old male??with history??of hepatitis-C, cirrhosis, chronic??anemia, hypothyroidism??and depression??that presented??to the emergency department due to concern??for abdominal??pain??and diarrhea.?? Patient noted??to??have CT findings??of colitis in the ascending and transverse? ?colon.?? Patient is currently??homeless??and??had reported some??stream water intake??therefore stool??studies??pending.?? Symptoms have somewhat??improved advancing??diet. ? Patient 100% a regular diet. Colitis:?? CT scan with??thickening??of the haile of the ascending and transverse??colon.?Stool studies did not come back??for??4 days that??patient has been??here.?? But??she is symptoms??improved with metronidazole??IV for??4 days.?? Will continue??p.o. 3 more days??assigned a PCP??and will discharge the patient.? ] Vitals & Measurements ??Vital Signs (last 24 hrs)?Last Charted?Minimum?Maximum?Temp?97.9 (JUNE 20:39)?97.5 (JUNE 20 03:43)?97.9 (JUNE 20:39)?Heart Rate?80 (JUNE 20:39)?73 (MAY 03:43)?88 (MAY 12 20:41)?Resp Rate?18 (JUNE 20:39)?16 (JUNE 19 19:23)?19 (JUNE 19:41)?SBP?127 (JUNE 20:39)?116 (MAY 11:41)?138 (JUNE 19 19:23)?DBP?70 (JUNE 20 07:39)?61 (JUNE 19 15:53)?73 (JUNE 20 03:43)?SpO2?96 (JUNE 20 07:39)?95 (JUNE 19 11:41)?96 (JUNE 19 15:53)?O2?Room a (JUNE 20 07:49)?Room a (JUNE 19:41)?Room a (JUNE 19:41)?Weight?106.3 (JUNE 20 05:00)?106.3 (JUNE 20 05:00)?106.3 (JUNE 20:00)?? Physical Exam ?Vital signs reviewed ?General:?? Awake??and alert HEENT:?? Head normocephalic, atraumatic Cardiovascular:?? Regular rate??and rhythm Respiratory:?? On room air, lungs clear??auscultation without??wheezing or??rhonchi Abdomen:?? Mild??distension, tenderness??to palpation??epigastric??region, hyperactive??bowel sounds, no guarding??or??rigidity Neurologic:?Babinski??negative,??patient moves all 4 extremities ?Psychiatric:?? Calm, cooperative Extremities:?? No acute??deformity, trace??pitting??edema bilaterally Discharge Orders Discharge 06/20/22 9:42:00 CDT, Home/Self Care Discharge Follow Up 06/20/22 9:42:00 CDT, Provider/Time: Follow-up PCP in 7 days Discharge Diet 06/20/22 9:42:00 CDT, Discharge Diet: Regular Discharge Activity 06/20/22 9:42:00 CDT, As tolerated Medications Home Medications (10) Active acetaminophen 325 mg oral tablet??650 mg = 2 tab, PRN, PO/per tube, Q6H levothyroxine 50 mcg (0.05 mg) oral tablet??50 mcg = 1 tab, By mouth, Daily lithium 300 mg oral capsule??300 mg = 1 cap, By mouth, BID metroNIDAZOLE 500 mg oral tablet??500 mg = 1 tab, By mouth, Q8H oxyCODONE 5 mg oral tablet??5 mg = 1 tab, PRN, By mouth, Q4H Pepcid 20 mg oral tablet??20 mg, By mouth, BID RisperDAL 2 mg oral tablet??2 mg = 1 tab, By mouth, TID SEROquel 200 mg oral tablet??200 mg = 1 tab, By mouth, at bedtime spironolactone 50 mg oral tablet??50 mg = 1 tab, By mouth, Daily Wellbutrin XL 150 mg/24 hours oral tablet, extended release??300 mg = 2 tab, By mouth, QAM Medication reconciliation completed on this patient today Pending Labs PENDING LABS Campylobacter EIA Feces, Specimen, 06/16/22 15:51:00 CDT, Unit Collect, Routine, Print Label, 06/16/22 15:51:00 CDT, [id number], [email or web address]_set_order_encntr Enteric Pathogen Screen ?? G/Crypt/Ent Screen Feces, STAT, 06/16/22 16:09:00 CDT, Unit Collect, Stat, Print Label, 06/16/22 16:09:00 CDT, [id number], pp_rslts_call_set_order_encntr Salmonella Culture Feces, Specimen, 06/16/22 15:51:00 CDT, Unit Collect, Routine, Print Label, 06/16/22 15:51:00 CDT, [id number], pp_rslts_call_set_order_encntr Shiga-toxin E. coli EIA Feces, Specimen, 06/16/22 15:51:00 CDT, Unit Collect, Routine, Print Label, 06/16/22 15:51:00 CDT, [id number], pp_rslts_call_set_order_encntr Shigella Culture Feces, Specimen, 06/16/22 15:51:00 CDT, Unit Collect, Routine, Print Label, 06/16/22 15:51:00 CDT, [id number], pp_rslts_call_set_order_encntr Lab Results Labs??(Last two charted values on this encounter) WBC 1.6 ??(JUNE 17) 3.5 ??(JUNE 16) Hgb 7.4 ??(JUNE 17) 8.0 ??(JUNE 16) Hct 25.1 ??(JUNE 17) 27.6 ??(JUNE 16) Platelets 144 ??(JUNE 17) 169 ??(JUNE 16) Na 143 ??(JUNE 17) 138 ??(JUNE 16) K 4.0 ??(JUNE 17) 4.6 ??(JUNE 16) Cl 113 ??(JUNE 17) 114 ??(JUNE 16) CO2 25 ??(JUNE 17) 23 ??(JUNE 16) BUN 8 ??(JUNE 17) 7 ??(JUNE 16) Cr 0.64 ??(JUNE 17) 0.65 ??(JUNE 16) Ca ?8.0 ??(JUNE 17) ?8.1 ??(JUNE 16) ProteinT ?5.1 ??(JUNE 17) ?5.6 ??(JUNE 16) Albumin ?2.7 ??(JUNE 17) ?2.9 ??(JUNE 16) Bilirubin ,Total ?1.7 ??(JUNE 17) ?1.6 ??(JUNE 16) Alk Phos ?89 ??(JUNE 17) ?92 ??(JUNE 16) ALT ?51 ??(JUNE 17) ?55 ??(JUNE 16) AST ?84 ??(JUNE 17) ?103 ??(JUNE 16) Lipase 48 ??(JUNE 16) ?? Lactic Acid 1.10 ??(JUNE 16) ?? Glucose,Plasma 93 ??(JUNE 17) 101 ??(JUNE 16) Diagnostic Results Radiology Results:?? CT Abd Pelvis w Contrast - 06/16/22 14:02 ( Rickie KAMINSKI, Geovani Hunt )?? IMPRESSION: 1. ??Thickening of the haile of the ascending and transverse colon consistent with mildcolitis. ?? Surrounding fat stranding is present. ?? 2. ??Cirrhotic changes of the liver with area of low density again noted within the right lobe of the liver, similar to the prior study. ?? 3. ??Splenomegaly. ?? 4. ??Intra-abdominal ascites is present. ?? 5. ??Mild diverticulosis is present in the distal colon. ?? 6. ??No mesenteric or retroperitoneal lymphadenopathy. ?? 7. ??The lumbar spine demonstrates mild degenerative changes at multiple levels. ?? 8. ??Mild enlargement of the prostate.?? Electronically signed by: Geovani Damian DO, ??[facility], 06/16/2022 14:43 ?? XR Chest 1 View - 06/16/22 10:52 ( Frederick Mo MD )?? IMPRESSION: No acute findings. ??Electronically signed by: Frederick Mo MD, ??[facility], 06/16/2022 11:24 Other No qualifying data available. Airway Management No Data Available [1]??Admission H&P Note; Taty Morley DO 06/16/2022 16:13 CDT Electronically signed by:Michael Gonzalez MD 06/20/22 09:45 XR Chest Single view * Frederick Mo MD: PERFORM, VERIFY, VERIFY Event Display: Report Authored Date: Note * Frederick Mo MD: PERFORM, VERIFY, VERIFY Event Display: Powerscribe Read Authored Date: PROCEDURE INFORMATION: Exam: XR Chest Exam date and time: 06/16/2022 10:52 AM Age: 66 years old Clinical indication: PT reports constant, burning, stabbing, epigastric pain onset yesterday. Rated at 7/10. Notes associated diarrhea. Reports symptoms feel similar to previous renal stones, but pain is located in different area. HX: HTN. Former smoker. TECHNIQUE: Imaging protocol: Radiologic exam of the chest. Views: 1 view. COMPARISON: DX XR Ribs Right 3 View w PA Chest Routine 04/15/2022 5:26 PM FINDINGS: Lungs: Unremarkable. No consolidation. Pleural spaces: Unremarkable. No pleural effusion. No pneumothorax. Heart/Mediastinum: Borderline cardiomegaly. Bones/joints: Unremarkable. IMPRESSION: No acute findings. Electronically signed by: Frederick Mo MD, [facility], 06/16/2022 11:24 Frederick Mo MD Signed 06/16/22 11:24:08 (Electronic Signature) Technologist [facility] * Geovani Damian MD: PERFORM, VERIFY, VERIFY Event Display: Powerscribe Read Authored Date: [id number] PROCEDURE INFORMATION: Exam: CT Abdomen And Pelvis With Contrast Exam date and time: 06/16/2022 2:02 PM Age: 66 years old Clinical indication: Abdominal pain - iv contrast TECHNIQUE: Imaging protocol: Computed tomography of the abdomen and pelvis with contrast. Total images: 279 Radiation optimization: All CT scans at this facility use at least one of these dose optimization techniques: automated exposure control; mA and/or kV adjustment per patient size (includes targeted exams where dose is matched to clinical indication); or iterative reconstruction. REPORTING DATA: Count of CT and Cardiac NM exams in prior 12 months: This patient has received 4 known CTs and 0 known cardiac nuclear medicine studies in the 12 months prior to the current study. COMPARISON: CT Abd Pelvis wo Contrast 05/04/2022 5:12 PM FINDINGS: Liver: Cirrhotic changes of the liver with area of low density again noted within the right lobe of the liver, similar to the prior study. Gallbladder and bile ducts: Normal. No calcified stones. No ductal dilation. Pancreas: Mild peripancreatic fat stranding is present. Spleen: Splenomegaly. Splenic calcifications are present. Adrenal glands: Normal. No mass. Kidneys and ureters: Normal. No hydronephrosis. Stomach and bowel: Thickening of the haile of the ascending and transverse colon consistent with mild colitis. Surrounding fat stranding is present. Mild diverticulosis is present in the distal colon. Appendix: No evidence of appendicitis. Intraperitoneal space: Intra-abdominal ascites is present. Vasculature: Unremarkable. No abdominal aortic aneurysm. Lymph nodes: No mesenteric or retroperitoneal lymphadenopathy. Urinary bladder: Unremarkable as visualized. Reproductive: The prostate gland contains benign-appearing calcifications that are likely parenchymal. Mild enlargement of the prostate. Bones/joints: The lumbar spine demonstrates mild degenerative changes at multiple levels. Soft tissues: Fat filled ventral wall hernia present. IMPRESSION: 1. Thickening of the haile of the ascending and transverse colon consistent with mild colitis. Surrounding fat stranding is present. 2. Cirrhotic changes of the liver with area of low density again noted within the right lobe of the liver, similar to the prior study. 3. Splenomegaly. 4. Intra-abdominal ascites is present. 5. Mild diverticulosis is present in the distal colon. 6. No mesenteric or retroperitoneal lymphadenopathy. 7. The lumbar spine demonstrates mild degenerative changes at multiple levels. 8. Mild enlargement of the prostate. Electronically signed by: Geovani Damian DO, [facility], 06/16/2022 14:43 Geovani Damian MD Signed 06/16/22 14:43:13 (Electronic Signature) Technologist RS CT Abdomen and Pelvis W contrast IV * Geovani Damian MD: PERFORM, VERIFY, VERIFY Event Display: Report Authored Date: [id number] Cardiology * Omar Cordova MD R: VERIFY, SIGN Event Display: EKG 12-Lead Authored Date: Patient Care team information Care Team Personnel Name: Johnny Zheng DO Position: PX Physician - Family Practice Member Role: Primary Care Physician Address: Address: [address] [place] [address]- Name: Chantel Atkins Position: Inpatient-Midlevel Member Role: Nurse Practitioner Address: Address: [address] [place] [address]- Name: Bautista Cruz MD Position: Physician-Emergency LP Member Role: Emergency Room Physician Address: Address: [address] [place] [address]- Name: Aimee Peñaloza RN Position: ED-Photo Nurse POC LP Member Role: Emergency Room Nurse Care Team Related Persons Name: SHAYNA GUZMÁN Name: BASILIA NORTON
--- OUTSIDE RECORDS SUMMARY | 2022-12-15 13:20 | XMS_ITS | Continuity of Care Document ---
Author Name Unknown Organization [facility] Address [address] 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 [address] [place] [address]- Encounter Diagnosis Abdominal pain(Discharge Diagnosis) - 07/11/22 Cirrhosis of liver(Discharge Diagnosis) - 07/11/22 Discharge Disposition: .Discharge to Home (Routine) Attending Physician: Kin Benites MD Allergies, Adverse Reactions, Alerts Substance Reaction Severity Status penicillins unknown Unknown Active sulfa drugs Flores Art Syndrome Severe Act tamiko codeine stomach upset Moderate Active Talwin NX syncope Moderate Active Assessment and Plan Extracted from: Title:Abdominal pain Author:Giancarlo Chacon Jordan e:07/11/22 Impression and Plan Plan Condition: Stable. Disposition: Discharged: The patient received an appropriate MSE including H&P exam as well as ancillary studies and procedures determined appropriate in the provider's judgement. The patient is medically and/or psychologically cleared for discharge. . Discharge: Diagnosis: Abdominal pain (R10.9) Cirrhosis of liver (K74.60) Education: Abdominal Pain, Adult, Jlhz-xi-Awes Orders: ( Completed ): Xtra Gold Top 07/11/2022 17:23 Height to Glucommander CBC-d (CBC-d) 07/11/2022 17:20 CMP (CMP) 07/11/2022 17:37 Lipase (Lipase) 07/11/2022 17:37 Urinalysis w/ microscopy (Urinalysis w/ microscopy) 07/11/2022 17:28 zCBC Automated Diff 07/11/2022 17:[address] Abd Pelvis w Contrast Routine (CT Abd Pelvis w Contrast Routine) 07/11/2022 23:14 Obtain EKG (Obtain EKG) 07/11/2022 22:10 NT-proBNP (NT-proBNP) 07/11/2022 22:57 ondansetron (ondansetron) 4 mg 07/11/2022 22:23 EKG 12-Lead (EKG 12-Lead) 07/11/2022 22:11 Troponin I - Series High-Sensitivity (Troponin I - Series High-Sensitivity) 07/11/2022 23:03 famotidine (Pepcid) 20 mg 07/11/2022 22:37 iopamidol (ISOVUE 370 IBP INJ 500 ML) 75 mL 07/11/2022 22:46 Sodium Chloride 0.9% intravenous solutio (NS bolus) 500 mL 07/11/2022 22:37 acetaminophen-hydrocodone ([place] 5 mg-325 mg oral tablet) 1 tab 07/11/2022 23:47 Orders: ( Ordered ): PTT (PTT) PT/INR (PT/INR) zTroponin I - HS 2 Hr (zTroponin I - HS 2 Hr) Follow Up: Johnny Zheng 3 to 5 days Follow-up with your primary care doctor as instructed You may need an MRI in the future to assess your liver as we discussed, this could be done in outpatient setting. Return to the emergency department if any new or worsening symptoms. . Counseled: Patient, Regarding diagnosis, Regarding diagnostic results, Regarding treatment plan, Regarding prescription, Patient indicated understanding of instructions. Notes: Patient was seen with Dr. Benites This note was created using an EMR that incorporates voice recognition and data hawkins that are auto-imported. Because of this, despite review, it may still contain homonyms, grammar errors, sound a-like words, empty hawkins, or other idiosyncrasies that do not convey or communicate my full intent. Feel free to contact me for any clarifications or questions. . 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 Start Date: 07/10/22 Stop Date: 07/16/22 Status: Ordered oxyCODONE 5 mg oral tablet 5 mg, = 1 tab, By mouth, Q4H, PRN Pain Moderate, 10 tab, 0, 0, Substitution Permitted, [facility], 74, Height, 05/14/22 2:22:00 [...] Daily, # 30 tab, Refill(s) 0, Pharmacy: [facility], [id number], TAB, 1 tab By mouth Daily, 123.3, 05/13/22 16:46:00 CDT, kg, Weight Start Date: 05/18/22 Status: Ordered triamcinolone topical 0.1% ointment 1 application, Topical, TID, apply a thin film to affected area, # 30 g, Refill(s) 0, Lithuanian, Route to Pharmacy Electronically, Pharmacy: [facility], [id number],1 application Topical TID,Instr:apply a thin film;... 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 Start Date: 04/15/22 Status: Ordered [...] surgical case Results Laboratory List Name Date NT-proBNP 07/11/22 Troponin I - Series High-Sensitivity 07/11 CBC-d 07/11/22 CMP 07/11/22 Lipase 07/11/22 zCBC Automated Diff 07/11/22 Urinalysis w/ microscopy 07/11/22 Most recent to oldest [Reference Range]: 1 Anion Gap [2-15 mEq/L] 6 mEq/L (07/11/22 5:08 PM) Troponin I HS [<=15 ng/L] <3 ng/L (07/11/22 10:29 PM) RTE Casts None Seen (07/11/22 5:00 PM) RTEs None Seen (07/11/22 5:00 PM) BNP [<=99 pg/mL] 146 pg/mL *HI* (07/11/22 10:29 PM) Glucose, Serum/Plasma [70-100 mg/dL] 135 mg/dL *HI* (07/11/22 5:08 PM) WBC [4.8-10.8 Thous/mm3] 4.3 Thous/mm3 *LOW* (07/11/22 5:08 PM) Hct [42.0-52.0 %] 30.8 % *LOW* (07/11/22 5:08 PM) Hgb [14.0-18.0 g/dL] 8.6 g/dL *LOW* (07/11/22 5:08 PM) RBC [4.60-6.20 Million/mm3] 4.39 Million /mm3 *LOW* (07/11/22 5:08 PM) MCV [80.0-100.0 fl] 70.2 fl *LOW* (07/11/22 5:08 PM) MCH [26.0-34.0 pg] 19.6 pg *LOW* (07/11/22:08 PM) MCHC [31.0-36.5 g/dL] 27.9 g/dL *LOW* (07/11/22 5:08 PM) RDW [10.4-14.4 %] 25.6 % *HI* (07/11/22:08 PM) Platelets [130-440 Thous/mm3] 173 Thous/ mm3 (07/11/22:08 PM) AutoNeutrophil [43.0-78.0 %] 86.0 % *HI* (07/11/22:08 PM) AutoLymphs [20.0-40.0 %] 10.8 % *LOW* (07/11/22:08 PM) AutoMono [2.0-10.0 %] 1.6 % *LOW* (07/11/22:08 PM) AutoEo [0.0-7.0 %] 0.0 % (07/11/22:08 PM) Sodium [136-145 mEq/L] 141 mEq/L (07/11/22:08 PM) Potassium [3.5-5.1 mEq/L] 4.0 mEq/L (07/11/22:08 PM) Chloride [98-107 mEq/L] 112 mEq/L *HI* (07/11/22 5:08 PM) AbsNeut [2.0-8.0 Thous/mm3] 3.7 Thous/mm 3 (07/11/22:08 PM) CO2 [21-32 mEq/L] 23 mEq/L (6/2/23 5:08 PM) BUN [7-18 mg/dL] 8 mg/dL (07/11/22 5:08 PM) Creatinine [0.73-1.18 mg/dL] 0.58 mg/dL *LOW* (07/11/22 5:08 PM) AbsLymph [1.0-4.0 Thous/mm3] 0.5 Thous/m m3 *LOW* (07/11/22 5:08 PM) AbsMono [0.1-1.0 Thous/mm3] 0.1 Thous/mm 3 (07/11/22 5:08 PM) Bilirubin, Total [0.2-1.0 mg/dL] 1.8 mg/ dL *HI* (07/11/22 5:08 PM) AbsEo [0.0-0.5 Thous/mm3] 0.0 Thous/mm3 (07/11/22 5:08 PM) AbsBaso [0.0-0.2 Thous/mm3] 0.0 Thous/mm 3 (07/11/22 5:08 PM) AutoBaso [0.0-2.5 %] 0.9 % (07/11/22 5:08 PM) Calcium [8.3-10.6 mg/dL] 8.5 mg/dL (07/11/22 5:08 PM) Protein Total [6.4-8.5 g/dL] 6.3 g/dL *LOW* (07/11/22 5:08 PM) Albumin [3.4-5.0 g/dL] 3.2 g/dL *LOW* (07/11/22 5:08 PM) AST [15-37 U/L] 81 U/L *HI* (07/11/22 5:08 PM) Alk Phos [45-117 U/L] 110 U/L (07/11/22 5:08 PM) ALT [10-49 U/L] 48 U/L (07/11/22 5:08 PM) Appearance [Clear] Clear (07/11/22 5:00 PM) Color [Yellow] Dark Yellow *NA* (07/11/22 5:00 PM) Sp. [place] [1.001-1.035] 1.022 (07/11/22 5:00 PM) Ketones [Negative] Negative (07/11/22 5:00 PM) Glucose [Negative] Negative (07/11/22 5:00 PM) Protein [Negative] Negative (07/11/22 5:00 PM) Blood [Negative] Negative (07/11/22 5:00 PM) Nitrites UA [Negative] Negative (07/11/22 5:00 PM) Lipase, Serum/Plasma [12-53 U/L] 32 U/L (07/11/22 5:08 PM) Bilirubin UA [Negative] 1+ *ABN* (07/11/22 5:00 PM) Urobilinogen [1.0 mg/dL] 2.0 mg/dL *ABN* (07/11/22 5:00 PM) Leuko Esterase UA [Negative] Negative (07/11/22 5:00 PM) pH UA [5.0-9.0] 6.0 (07/11/22 5:00 PM) RBC [0-2/hpf] 0-2/hpf (07/11/22 5:00 PM) WBC [0-5/hpf] 0-5/hpf (07/11/22 5:00 PM) Hyaline Casts [0-2/lpf] 0-2/lpf (07/11/22 5:00 PM) Bacteria [None Seen] None Seen (07/11/22 5:00 PM) Epithelium [None Seen] None Seen (07/11/22 5:00 PM) eGFR [>=60 mL/min/1.73 m2] 141 mL/min/1. 73 m2 (07/11/22 5:08 PM) eGFR if [>=60 mL/min/1. 73 m2] 171 mL/min/1.73 m2 (07/11/22 5:08 PM) Volume 3 mL *NA* (07/11/22 5:00 PM) Imm. Grans % [0-5 %] <5 % (07/11/22 5:08 PM) Imm. Grans # [0.0-0.5 Thous/mm3] <0.5 Th ous/mm3 (07/11/22 5:08 PM) ANC-AbsNeutCount 3.7 Thous/mm3 *NA* (07/11/22 5:08 PM) Radiology Reports * Exam Date Time Procedure Performing Provider Status 07/11/22 10:[address] Abd Pelvis w Contrast Jacek Chacon; Auth (Verified) Notes: (CT Abd Pelvis w Contrast) Reason For Exam: pain REPORT CT Abd Pelvis w Contrast PROCEDURE INFORMATION: Exam: CT Abdomen And Pelvis With Contrast Exam date and time: 07/11/2022 10:46 PM Age: 66 years old Clinical indication: Pain TECHNIQUE: Imaging protocol: Computed tomography of the abdomen and pelvis with contrast. Radiation optimization: All CT scans at this facility use at least one of these dose optimization techniques: automated exposure control; mA and/or kV adjustment per patient size (includes targeted exams where dose is matched to clinical indication); or iterative reconstruction. Contrast material: ISO 370; Contrast volume: 75 ml; Contrast route: INTRAVENOUS (IV); REPORTING DATA: Count of CT and Cardiac NM exams in prior 12 months: This patient has received 5 known CTs and 0 known cardiac nuclear medicine studies in the 12 months prior to the current study. COMPARISON: CT Abd Pelvis w Contrast 06/16/2022 2:02 PM FINDINGS: Liver: Cirrhotic appearing liver with somewhat ill-defined focal areas of decreased attenuation within the right and left lobes of the liver the largest is in the right lobe and measures up to approximately 2.5 cm in diameter on series 2, image 15, these findings do not appear significantly changed when compared prior exam. Gallbladder and bile ducts: The gallbladder has been removed. Pancreas: No intraparenchymal lesions are seen. No ductal dilation. Spleen: Granulomas are seen scattered throughout and enlarged spleen. Adrenal glands: Normal. No mass. Kidneys and ureters: No solid intraparenchymal soft tissue lesion. No hydronephrosis. Stomach and bowel: No pathologic bowel dilatation. No obstruction. The haile of the small bowel and ascending colon are mildly thickened and edematous, this finding is nonspecific however likely represents enteropathy and colopathy secondary to portal hypertension. Mild diffuse mesenteric edema. Appendix: No evidence of appendicitis. Intraperitoneal space: Mild ascites. No free air. No abnormal walled-off fluid collection. Vasculature: Atheromatous changes within the visualized portion of the aorta and its major branching vessels are within normal limits of variation for the patient's age. No abdominal aortic aneurysm. Redemonstration of paraesophageal, perigastric, perisplenic, and peripancreatic varices. Lymph nodes: There are few prominent lymph nodes scattered throughout the mesentery. Urinary bladder: Unremarkable as visualized. Reproductive: Mildly enlarged prostate. Bones/joints: No acute fracture. Moderate degenerative changes of the partially imaged spine. Malunion of the posterior elements of L4 versus left L4 laminotomy, correlate clinically. 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 Small fat containing ventral hernia. IMPRESSION: 1. Cirrhotic appearing liver with ill-defined focal areas of decreased attenuation as described above, cannot exclude hepatocellular carcinoma. An MRI of the abdomen may be helpful for further evaluation if clinically indicated. 2. Sequelae of portal hypertension as described above. 3. Other multiple chronic/incidental findings as described above. Electronically signed by: Efrain Lr MD, [facility], 07/11/2022 23:14 Efrain Lr MD Signed 07/11/22 23:14:06 (Electronic Signature) Technologist MS Vital Signs Most recent to oldest [Reference Range]: 1 2 3 Blood Pressure 178/82 (07/11/22 11:30 PM) 152/85 (07/11/22 11:15 PM) 152/78 (07/11/22 11:00 PM) Height (inches) (Clinical) 74 in (07/11/22 3:53 PM) Weight (kg) (Clinical) 116.3 kg (07/11/22 3:53 PM) 116.3 kg (07/11/22 3:52 PM) Social History Social History Type Response Smoking [...] Code MRI Safety Implantable Status Assigning Authority [id number] Unknown [id number] Unknown 06/27/25 Unknown Unknown Active GS1 Procedure Provider Procedure Date Device Type Site Unknown Unknown 01/14/22 Unknown Ureter, Left Device Identifier Serial Number Lot or Batch Number Manufacturing Date Expiration Date Distinct Identification Code MRI Safety Implantable Status Assigning Authority Unknown Unknown [id number] Unknown 09/16/26 Unknown Unknown Active Unkn own Procedure Provider Procedure Date Device Type Site Unknown Unknown 05/02/21 Unknown Ureter, Left Device Identifier Serial Number Lot or Batch Number Manufacturing Date Expiration Date Distinct Identification Code MRI Safety Implantable Status Assigning Authority [id number] Unknown [id number] Unknown 12/18/25 Unknown Unknown Active GS1 Hospital Discharge Instructions Patient Education 07/11/2022 23:25:57 Abdominal Pain, Adult, Erno-an-Awqy Abdominal Pain, Adult Many things can cause belly (abdominal) pain. Most times, belly pain is not dangerous. Many cases of belly pain can be watched and treated at home. Sometimes, though, belly pain is serious. Your doctor will try to find the cause of your belly pain. Follow these instructions at home: Medicines ??? Take dfig-qqp-mxeyeom and prescription medicines only as told by your doctor. ??? Do not take medicines that help you poop (laxatives) unless told by your doctor. General instructions ??? Watch your belly pain for any changes. ??? Drink enough fluid to keep your pee (urine) pale yellow. ??? Keep all follow-up visits as told by your doctor. This is important. Contact a doctor if: ??? Your belly pain changes or gets worse. ??? You are not hungry, or you lose weight without trying. ??? You are having trouble pooping (constipated) or have watery poop (diarrhea) for more than 2???3days. ??? You have pain when you pee or poop. ??? Your belly pain wakes you up at night. ??? Your pain gets worse with meals, after eating, or with certain foods. ??? You are vomiting and cannot keep anything down. ??? You have a fever. ??? You have blood in your pee. Get help right away if: ??? Your pain does not go away as soon as your doctor says it should. ??? You cannot stop vomiting. ??? Your pain is only in areas of your belly, such as the right side or the left lower part of the belly. ??? You have bloody or black poop, or poop that looks like tar. ??? You have very bad pain, cramping, or bloating in your belly. ??? You have signs of not having enough fluid or water in your body (dehydration), such as: ??? Dark pee, very little pee, or no pee. ??? Cracked lips. ??? Dry mouth. ??? Sunken eyes. ??? Sleepiness. ??? Weakness. ??? You have trouble breathing or chest pain. Summary ??? Many cases of belly pain can be watched and treated at home. ??? Watch your belly pain for any changes. ??? Take okgh-ewn-klztphi and prescription medicines only as told by your doctor. ??? Contact a doctor if your belly pain changes or gets worse. ??? Get help right away if you have very bad pain, cramping, or bloating in your belly. This information is not intended to replace advice given to you by your health care provider. Make sure you discuss any questions you have with your health care provider. Document Revised: 06/06/2019 Document Reviewed: 06/06/2019 OLX Patient Education ?? 2022 DueProps. Follow Up Care 07/11/2022 15:36:22 With:Johnny Zheng Address: [address] [place] [address] [place] [address] [facility] (1) When:3 to 5 days Comments:Follow-up with your primary care doctor as instructedYou may need an MRI in the future to assess your liver as we discussed, this could be done in outpatient setting.Return to the emergency department if any new or worsening symptoms. CT Abdomen and Pelvis W contrast IV * Efrain Lr MD: PERFORM, VERIFY, VERIFY Event Display: Report Authored Date: Note * Efrain Lr MD: PERFORM, VERIFY, VERIFY Event Display: Powerscribe Read Authored Date: PROCEDURE INFORMATION: Exam: CT Abdomen And Pelvis With Contrast Exam date and time: 07/11/2022 10:46 PM Age: 66 years old Clinical indication: Pain TECHNIQUE: Imaging protocol: Computed tomography of the abdomen and pelvis with contrast. Radiation optimization: All CT scans at this facility use at least one of these dose optimization techniques: automated exposure control; mA and/or kV adjustment per patient size (includes targeted exams where dose is matched to clinical indication); or iterative reconstruction. Contrast material: ISO 370; Contrast volume: 75 ml; Contrast route: INTRAVENOUS (IV); REPORTING DATA: Count of CT and Cardiac NM exams in prior 12 months: This patient has received 5 known CTs and 0 known cardiac nuclear medicine studies in the 12 months prior to the current study. COMPARISON: CT Abd Pelvis w Contrast 06/16/2022 2:02 PM FINDINGS: Liver: Cirrhotic appearing liver with somewhat ill-defined focal areas of decreased attenuation within the right and left lobes of the liver the largest is in the right lobe and measures up to approximately 2.5 cm in diameter on series 2, image 15, these findings do not appear significantly changed when compared prior exam. Gallbladder and bile ducts: The gallbladder has been removed. Pancreas: No intraparenchymal lesions are seen. No ductal dilation. Spleen: Granulomas are seen scattered throughout and enlarged spleen. Adrenal glands: Normal. No mass. Kidneys and ureters: No solid intraparenchymal soft tissue lesion. No hydronephrosis. Stomach and bowel: No pathologic bowel dilatation. No obstruction. The haile of the small bowel and ascending colon are mildly thickened and edematous, this finding is nonspecific however likely represents enteropathy and colopathy secondary to portal hypertension. Mild diffuse mesenteric edema. Appendix: No evidence of appendicitis. Intraperitoneal space: Mild ascites. No free air. No abnormal walled-off fluid collection. Vasculature: Atheromatous changes within the visualized portion of the aorta and its major branching vessels are within normal limits of variation for the patient's age. No abdominal aortic aneurysm. Redemonstration of paraesophageal, perigastric, perisplenic, and peripancreatic varices. Lymph nodes: There are few prominent lymph nodes scattered throughout the mesentery. Urinary bladder: Unremarkable as visualized. Reproductive: Mildly enlarged prostate. Bones/joints: No acute fracture. Moderate degenerative changes of the partially imaged spine. Malunion of the posterior elements of L4 versus left L4 laminotomy, correlate clinically. 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 Small fat containing ventral hernia. IMPRESSION: 1. Cirrhotic appearing liver with ill-defined focal areas of decreased attenuation as described above, cannot exclude hepatocellular carcinoma. An MRI of the abdomen may be helpful for further evaluation if clinically indicated. 2. Sequelae of portal hypertension as described above. 3. Other multiple chronic/incidental findings as described above. Electronically signed by: Efrain Lr MD, [facility], 07/11/2022 23:14 Efrain Lr MD Signed 07/11/22 23:14:06 (Electronic Signature) Technologist MS Marshall * Rickie KAMINSKI, Shayna D: SIGN, VERIFY Event Display: EKG 12-Lead Authored Date: [id number] Patient Care team information Care Team Personnel Name: Johnny Zheng DO Position: PX Physician - Family Practice Member Role: Primary Care Physician Address: Address: [facility] [address] Name: Chantel Atkins Position: Inpatient-Midlevel Member Role: Nurse Practitioner Address: Address: [address] [place] [address]- Name: Giancarlo Chacon Position: ED-Midlevel LP Member Role: Physician Collar Pointer Address: Address: [address] [place] [address]- Name: Gisela Quevedo RN Position: ED-Clinical LP Member Role: ED Clinical Staff Name: Kin Benites MD Position: Physician-Emergency LP Member Role: Attending Physician Address: Address: [facility] [address] [facility] Care Team Related Persons Name: SHAYNA GUZMÁN Name: BASILIA NORTON
--- OUTSIDE RECORDS SUMMARY | 2022-12-15 13:20 | XMS_ITS | Continuity of Care Document ---
Author Name Unknown Organization [facility] Address [address] [place] [address] Phone Care Team Providers Care Kst Operator Name Role Phone Unavailable Unavailable Unavailable Procedures Procedure Date HOME VST EST PT LOW TO MOD SEVERITY HOME VST NEW PT HI SEVERITY HOME VST EST PT LOW TO MOD SEVERITY HOME VST EST PT LOW TO MOD SEVERITY HOME VST EST PT LOW TO MOD SEVERITY HOME VST EST PT LOW TO MOD SEVERITY HOME VST EST PT LOW TO MOD SEVERITY Periapical first film Extraction erupted tooth or exposed root Limit oral eval problem focused 007 OFFICE CONSULT, 15 MIN, 3 KE Y COMPS: PROB FOCUS HX; PROB FOCUS EXAM; STRTFWD HOME VST NEW PT HI SEVERITY Advance Directives Directive Yes / No Effective Date File Name No Information Encounters Encounter Description Practice Location Reason(s) For Visit Diagnoses Date Provider Providers Copied on Encounter HOME VST EST PT LOW TO MOD SEVERITY [facility] , [address], [place], [place], [id number], tel:[phone] [facility] OTHER SPECFD COUNSELING Sep-3 0-200 8 No Information HOME VST NEW PT HI SEVERITY [facility] , [address], [place], [place], [id number], [place] tel:[phone] [facility] OTHER SPECFD COUNSELING Sep-2 9-200 8 No Information HOME VST EST PT LOW TO MOD SEVERITY [facility] , [address], [place], [place], [id number], tel:[phone] [facility] OTHER SPECFD COUNSELING Sep-2 9200 8 No Information HOME VST EST PT LOW TO MOD SEVERITY [facility] , [address], [place], [place], [address], [place] tel:[phone] [facility] OTHER SPECFD COUNSELING 8 No Information HOME VST EST PT LOW TO MOD SEVERITY [facility] , [address], [place], [place], [address], [place] tel:[phone] [facility] OTHER SPECFD COUNSELING 8 No Information HOME VST EST PT LOW TO MOD SEVERITY [facility] , [address], [place], [place], [address], [place] tel:[phone] [facility] OTHER SPECFD COUNSELING 7 No Information HOME VST EST PT LOW TO MOD SEVERITY [facility] , [address], [place], [place], [id number], [place] tel:[phone] [facility] DERMATITIS NOS 7 No Information [facility] , [address], [place], [place], [address], [place] tel:[phone] [facility] [place] DENTAL EXAMINATION 7 No Information OFFICE CONSULT, 15 MIN, 3 YOUNG COMPS: PROB FOCUS HX; PROB FOCUS EXAM; STRTFWD [facility] , [address], [place], [place], [address], [place] tel:[phone] [facility] [place] COUNSELING NOS 7 No Information HOME VST NEW PT HI SEVERITY [facility] , [address], [place], [place], [address], [place] tel:[phone] [facility] HYPERTENSION NOS 7 No Information Family History Family Member Type Diagnosis Age At Onset No Information Payers Payer name Insurance type Covered republican ID Authoriza tion(s) No Information Social History Type Description Quantity Date Captured Comments Sex Male Smoking Status No Information Chief Complaint And Reason For Visit No Information Reason For Referral Reason For Referral No Information History Of Present Illness Encounter Date Complaint History Of Prese nt Illness No Information Functional Status Date Functional Assessmen t No Information Instructions Date Instruction Additional Infor mation No Information Assessments Type Assessment Date No Information Patient Care Teams Name Effective Dates (start - stop) Status Members No Information
--- OUTSIDE RECORDS SUMMARY | 2022-12-15 13:20 | XMS_ITS | Continuity of Care Document ---
Author Name Unknown Organization [facility] Address [address] 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 Name Role Phone [place] ([facility])Rahat Primary Care Physician Encounter Self Financial Number [id number] Date(s): 11/21/22 - 11/21/22 [facility] [address] [place] [address]- Encounter Diagnosis Right flank pain(Discharge Diagnosis) - 11/21/22 Back pain(Discharge Diagnosis) - 11/21/22 Discharge Disposition: .Discharge to Home (Routine) Attending Physician: Gómez Dee DO Allergies, Adverse Reactions, Alerts Substance Reaction Severity Status penicillins unknown Unknown Active sulfa drugs Flores Art Syndrome Severe Act tamiko codeine stomach upset Moderate Active Talwin NX syncope Moderate Active Assessment and Plan Extracted from: Title:Flank pain Author:Lianne Villeda ate:11/21/22 Impression and Plan Plan Condition: Stable. Disposition: Discharged: The patient received an appropriate MSE including H&P exam as well as ancillary studies and procedures determined appropriate in the provider's judgement. The patient is medically and/or psychologically cleared for discharge. . Discharge: Diagnosis: Right flank pain (R10.9) Back pain (M54.9) Education: Chronic Back Pain Flank Pain, Adult Orders: ( Completed ): zCBC Automated Diff 11/21/2022 10:03 Height to Glucommander CBC-d (CBC-d) 11/21/2022 10:03 CMP (CMP) 11/21/2022 10:27 Urinalysis w/ microscopy (Urinalysis w/ microscopy) 11/21/2022 12:24 Xtra Gold/Blue Set 11/21/2022 10:56 Xtra blue top 11/21/2022 10:56 Xtra Gold Top 11/21/2022 10:56 Xtra purple top 11/21/2022 10:56 Xtra green top 11/21/2022 10:56 Phlebotomy ondansetron (Zofran ODT) 4 mg 11/21/2022 11:04 Lipase 11/21/2022 10:58 CT Abd Pelvis wo Contrast (CT Renal Stone Protocol) 11/21/2022 13:14 Follow Up: Rahat Ryan 5 to 7 days Follow-up with regular doctor for recheck, call for appointment Return for worsening, non improving symptoms . Counseled: Patient, Regarding diagnosis, Regarding diagnostic results, Regarding treatment plan, Regarding prescription, Patient indicated understanding of instructions. Future Appointments Appointment Date:12/11/2022 01:00:00 PM Scheduled Provider:Shelby THOMAS ([facility])Rahat Location:[facility] Appointment Type:Established Patient Appointment Date:01/22/2023 11:00:00 AM Scheduled Provider:Rafa Marks MD Location:-[facility] Appointment Type:Established Patient Appointment Date:04/15/2023 08:30:00 AM Scheduled Provider:Idalia Fernandez MD Location:[facility] Appointment Type:ER Follow Up (New) Appointment Date:05/06/2023 [...] mRNA-1273 Moderna 09/18/21 Rec orded COVID-19 SARS-CoV-2 mRNA-127 Moderna 08/06/20 Rec orded Medications acetaminophen 325 [...] tab, Refill(s) 0, Other: See Comments, Pharmacy: [facility], [id number], TAB, 1 tab By mouth Daily, 113.91, 09/12/22 8:55:00CDT, kg, Weight (kg) (Clinical) Start Date: 09/24/22 Status: Ordered nadolol 20 mg oral tablet 20 mg = 1 tab, PO, Daily, # 30 tab, Refill(s) 12, Pharmacy: [facility], [id number], 1 tab By mouth Daily, 113.91, 09/12/22 8:55:00 CDT, kg, Weight (kg) (Clinical) Start Date: 09/24/22 Status: Ordered naproxen 500 mg oral tablet 500 mg = 1 tab, By mouth, BID, # 60 tab, Refill(s) 0, Pharmacy: [facility], [id number], 1 tab By mouth BID, 107.82, 11/04/22 14:02:00 CDT, kg, Weight (kg) (Clinical) Start Date: 11/05/22 Stop Date: 02/08/23 Status: Ordered oxyCODONE 5 mg oral capsule 5 mg, = 1 cap, By mouth, BID, PRN for pain, PDMP checked at the time of this message. 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 Start Date: 11/21/22 Stop Date: 12/21/22 Status: Ordered Pepcid 20 mg oral tablet 20 mg, By mouth, BID, # 60 tab, Refill(s) 1, GERD, Pharmacy: [facility], [id number], TAB, 20 mg By mouth BID, 113.91, 09/12/22 8:55:00 CDT, kg, Weight (kg) (Clinical) Start Date: 09/24/22 Status: Ordered RisperDAL 2 mg oral tablet 2 mg = 1 tab, By mouth, BID, # 60 tab, Refill(s) 0 Start Date: 11/01/22 Status: Ordered spironolactone 50 mg oral tablet 50 mg = 1 tab, By mouth, Daily, # 30 tab, Refill(s) 11, Pharmacy: [facility], [id number], TAB, 1 tab By mouth Daily,x30 Days, 112.1, 11/01/22 10:35:00 CDT, kg, Weight (kg) (Clinical) Start Date: 11/03/22 Stop Date: 10/29/23 Status: Ordered Wellbutrin XL 150 mg/24 hours oral tablet, extended release 150 mg = 1 tab, By mouth, QAM, # 30 tab, Refill(s) 11, Depression, Pharmacy: [place] [id number] [facility], NCPDP_ID-[id number], XL TAB, 1 tab By mouth QAM,x30 [...] surgical case Results Laboratory List Name Date Urinalysis w/ microscopy 11/21/22 CBC-d 11/21/22 CMP 11/21/22 Lipase 11/21/22 zCBC Automated Diff 11/21/22 Most recent to oldest [Reference Range]: 1 Anion Gap [2-15 mEq/L] 6 mEq/L (11/21/22 9:26 AM) RTE Casts None Seen (11/21/22 11:28 AM) RTEs None Seen (11/21/22 11:28 AM) eGFR CKD-EPI [>=61 mL/min/1.73 m2] 107 m L/min/1.73 m2 (11/21/22 9:26 AM) Glucose, Serum/Plasma [70-100 mg/dL] 84 mg/dL (11/21/22 9:26 AM) WBC [4.8-10.8 Thous/mm3] 7.4 Thous/mm3 (11/21/22 9:26 AM) Hct [42.0-52.0 %] 30.8 % *LOW* (11/21/22 9:26 AM) Hgb [14.0-18.0 g/dL] 8.9 g/dL *LOW* (11/21/22 9:26 AM) RBC [4.60-6.20 Million/mm3] 4.43 Million /mm3 *LOW* (11/21/22 9:26 AM) MCV [80.0-100.0 fl] 69.5 fl *LOW* (11/21/22 9:26 AM) MCH [26.0-34.0 pg] 20.1 pg *LOW* (11/21/22 9:26 AM) MCHC [31.0-36.5 g/dL] 28.9 g/dL *LOW* (11/21/22 9:26 AM) RDW [10.4-14.4 %] 24.6 % *HI* (11/21/22 9:26 AM) Platelets [130-440 Thous/mm3] 196 Thous/ mm3 (11/21/22 AM) MPV [9.4-12.4 fl] ---- fl *NA* (11/21/22 AM) AutoNeutrophil [43.0-78.0 %] 64.3 % (11/21/22 AM) AutoLymphs [20.0-40.0 %] 20.7 % (11/21/22 AM) AutoMono [2.0-10.0 %] 8.8 % (11/21/22 AM) AutoEo [0.0-7.0 %] 3.5 % (11/21/22 AM) Sodium [136-145 mEq/L] 143 mEq/L (11/21/22 AM) Potassium [3.5-5.1 mEq/L] 5.0 mEq/L (11/21/22 AM) Chloride [98-107 mEq/L] 111 mEq/L *HI* (11/21/22 AM) AbsNeut [2.0-8.0 Thous/mm3] 4.7 Thous/mm 3 (11/21/22 AM) CO2 [21-32 mEq/L] 26 mEq/L (11/21/22 AM) BUN [7-18 mg/dL] 33 mg/dL *HI* (11/21/22 AM) Creatinine [0.73-1.18 mg/dL] 0.62 mg/dL *LOW* (11/21/22 AM) AbsLymph [1.0-4.0 Thous/mm3] 1.5 Thous/m m3 (11/21/22: AM) AbsMono [0.1-1.0 Thous/mm3] 0.6 Thous/mm 3 (11/21/22 AM) Bilirubin, Total [0.2-1.0 mg/dL] 1.3 mg/ dL *HI* (11/21/22 AM) AbsEo [0.0-0.5 Thous/mm3] 0.3 Thous/mm3 (11/21/22 AM) AbsBaso [0.0-0.2 Thous/mm3] 0.1 Thous/mm 3 (11/21/22 AM) AutoBaso [0.0-2.5 %] 1.9 % (11/21/22 AM) Calcium [8.3-10.6 mg/dL] 8.8 mg/dL (11/21/22 AM) Protein Total [6.4-8.5 g/dL] 5.7 g/dL *LOW* (11/21/22) Albumin [3.4-5.0 g/dL] 3.2 g/dL *LOW* (11/21/22 AM) AST [15-37 U/L] 89 U/L *HI* (11/21/22) Alk Phos [45-117 U/L] 99 U/L (11/21/22 AM) ALT [10-49 U/L] 64 U/L *HI* (11/21/22) Appearance [Clear] Clear (11/21/22 AM) Color [Yellow] Yellow *NA* (11/21/22 AM) Sp. Freedom [1.001-1.035] 1.022 (11/21/22 AM) Ketones [Negative] Negative (11/21/22 AM) Glucose [Negative] Negative (11/21/22 AM) Protein [Negative] Negative (11/21/22 AM) Blood [Negative] Negative (11/21/22) Nitrites UA [Negative] Negative (11/21/22 AM) Lipase, Serum/Plasma [12-53 U/L] 47 U/L (11/21/22 AM) Bilirubin UA [Negative] Negative (11/21/22 AM) Urobilinogen [1.0 mg/dL] 1.0 mg/dL (11/21/22 AM) Leuko Esterase UA [Negative] Negative (11/21/22 AM) pH UA [5.0-9.0] 7.0 (11/21/22 AM) RBC [0-2/hpf] 0-2/hpf (11/21/22 11:28 AM) WBC [0-5/hpf] 0-5/hpf (11/21/22 11:28 AM) Hyaline Casts [0-2/lpf] 0-2/lpf (11/21/22 11:28 AM) Bacteria [None Seen] None Seen (11/21/22 11:28 AM) Epithelium [None Seen] None Seen (11/21/22 11:28 AM) Volume 3 mL *NA* (11/21/22 11:28 AM) Imm. Grans % [0-5 %] <5 % (11/21/22 9:26 AM) Imm. Grans # [0.0-0.5 Thous/mm3] <0.5 Th ous/mm3 (11/21/22 9:26 AM) ANC-AbsNeutCount 4.8 Thous/mm3 *NA* (11/21/22 9:26 AM) Radiology Reports * Exam Date Time Procedure Performing Provider Status 11/21/22 12:[address] Abd Pelvis wo Contrast Matt Cutler NP, Lianne Renee; Auth (Verified) Notes: (CT Abd Pelvis wo Contrast) Reason For Exam: Abdominal Pain REPORT CT Abd Pelvis wo Contrast PROCEDURE INFORMATION: Exam: CT Abdomen And Pelvis Without Contrast Exam date and time: 11/21/2022 12:43 PM Age: 66 years old Clinical indication: Abdominal pain TECHNIQUE: Imaging protocol: Computed tomography of the abdomen and pelvis without contrast. Radiation optimization: All CT scans at [...] months prior to the current study. COMPARISON: 1. MR Abd w wo Contrast 09/04/2022 10:[address] Abd Pelvis w Contrast 07/11/2022 10:46 PM FINDINGS: Limitations: Exam excludes upper half of abdomen. Liver: Small nodular liver suggesting cirrhosis. Gallbladder and bile ducts: Post cholecystectomy biliary dilatation unchanged. Pancreas: Unremarkable. Spleen: Enlarged measuring at least 9 x 18 cm. Adrenal glands: Normal. Kidneys and ureters: Unremarkable. No stones or obstruction. Stomach and bowel: No obstruction or inflammation in visualized portion. Appendix: Normal size. No inflammation. Intraperitoneal space: Less than 20 cc abdominal and pelvic ascites. No pneumoperitoneum. Retroperitoneal space: Mild retroperitoneal and mesenteric edema attributed to venous congestion unchanged. Vasculature: Retroperitoneal venous collaterals suggest portal venous hypertension. No abdominal aortic aneurysm. Lymph nodes: Prominent retroperitoneal lymph nodes unchanged. Urinary bladder: Unremarkable. Reproductive: Unremarkable prostate and seminal vesicles. Bones/joints: Demineralized bones. Old superior endplate compression fracture deformity of L3. Multilevel degenerative facet joint arthritis. Soft tissues: Unremarkable. IMPRESSION: 1. Cirrhosis, splenomegaly and portal venous hypertension. 2. No inflammation, obstruction or significant acute abnormalities. 3. Upper half of abdomen excluded from exam. Electronically signed by: Frederick Perry MD, [employer], 11/21/2022 13:13 Frederick Perry MD Signed 11/21/22 13:13:40 (Electronic Signature) Technologist GS Vital Signs Most recent to oldest [Reference Range]: 1 2 3 Blood Pressure 188/77 *>HHI* (11/21/22 1:00 PM) 142/65 (11/21/22 11:15 AM) 140/66 (11/21/22 10:48 AM) Height (inches) (Clinical) 74 in (11/21/22 9:09 AM) Weight (kg) (Clinical) 111 kg (11/21/22 9:09 AM) BMI (Clinical) 31.4 kg/m2 (11/21/22 9:09 AM) Social History Social History Type Response [...] Code MRI Safety Implantable Status Assigning Authority [id number] Unknown [id number] Unknown 06/27/25 Unknown Unknown Active GS1 Procedure Provider Procedure Date Device Type Site Unknown Unknown 01/14/22 Unknown Ureter, Left Device Identifier Serial Number Lot or Batch Number Manufacturing Date Expiration Date Distinct Identification Code MRI Safety Implantable Status Assigning Authority Unknown Unknown [id number] Unknown 09/16/26 Unknown Unknown Active Unkn own Procedure Provider Procedure Date Device Type Site Unknown Unknown 05/02/21 Unknown Ureter, Left Device Identifier Serial Number Lot or Batch Number Manufacturing Date Expiration Date Distinct Identification Code MRI Safety Implantable Status Assigning Authority [id number] Unknown [id number] Unknown 12/18/25 Unknown Unknown Active GS1 Hospital Discharge Instructions Patient Education 11/21/2022 13:39:03 Flank Pain, Adult Flank Pain, Adult Flank pain is pain that is located on the side of the body between the upper abdomen and the spine.This area is called the flank. The pain may occur over a short period of time (acute), or it may belong-term or recurring (chronic). It may be mild or severe. Flank pain can be caused by many things, including: ??? Muscle soreness or injury. ??? Kidney infection, kidney stones, or kidney disease. ??? Stress. ??? A disease of the spine (vertebral disk disease). ??? A lung infection (pneumonia). ??? Fluid around the lungs (pulmonary edema). ??? A skin rash caused by the chickenpox virus (shingles). ??? Tumors that affect the back of the abdomen. ??? Gallbladder disease. Follow these instructions at home: ??? Drink enough fluid to keep your urine pale yellow. ??? Rest as told by your health care provider. ??? Take eqmj-eqh-nezdqwc and prescription medicines only as told by your health care provider. ??? Keep a journal to track what has caused your flank pain and what has made it feel better. ??? Keep all follow-up visits. This is important. Contact a health care provider if: ??? Your pain is not controlled with medicine. ??? You have new symptoms. ??? Your pain gets worse. ??? Your symptoms last longer than 2???3 days. ??? You have trouble urinating or you are urinating very frequently. Get help right away if: ??? You have trouble breathing or you are short of breath. ??? Your abdomen hurts or it is swollen or red. ??? You have nausea or vomiting. ??? You feel faint, or you faint. ??? You have blood in your urine. ??? You have flank pain and a fever. These symptoms may represent a serious problem that is an emergency. Do not wait to see if the symptoms will go away. Get medical help right away. Call your local emergency services (911 in the [place] Do not drive yourself to the hospital. Summary ??? Flank pain is pain that is located on the side of the body between the upper abdomen and the spine. ??? The pain may occur over a short period of time (acute), or it may be long- term or recurring (chronic). It may be mild or severe. ??? Flank pain can be caused by many things. ??? Contact your health care provider if your symptoms get worse or last longer than 2???3 days. This information is not intended to replace advice given to you by your health care provider. Make sure you discuss any questions you have with your health care provider. Document Revised: 04/08/2021 Document Reviewed: 04/08/2021 [employer] Patient Education ?? 2022 [employer]. 11/21/2022 13:39:03 Chronic Back Pain Chronic Back Pain When back pain lasts longer than 3 months, it is called chronic back pain. The cause of your back pain may not be known. Some common causes include: ??? Wear and tear (degenerative disease) of the bones, ligaments, or disks in your back. ??? Inflammation and stiffness in your back (arthritis). People who have chronic back pain often go through certain periods in which the pain is more intense (flare-ups). Many people can learn to manage the pain with home care. Follow these instructions at home: Pay attention to any changes in your symptoms. Take these actions to help with your pain: Managing pain and stiffness ??? If directed, apply ice to the painful area. Your health care provider may recommend applying ice during the first 24???48 hours after a flare-up begins. To do this: ??? Put ice in a plastic bag. ??? Place a towel between your skin and the bag. ??? Leave the ice on for 20 minutes, 2???3 times per day. ??? If directed, apply heat to the [...] to feel pain, heat, or cold. You may have a greater risk of getting burned. ??? Try soaking in a warm tub. Activity ??? Avoid bending and other activities that make the problem worse. ??? Maintain a proper position when standing or sitting: ??? When standing, keep your upper back and neck straight, with your shoulders pulled back. Avoid slouching. ??? When sitting, keep your back straight and relax your shoulders. Do not round your shoulders or pull them backward. ??? Do not sit or standpipe tender one place for long periods of time. ??? Take brief periods of rest throughout the day. This will reduce your pain. Resting in a lying or standing position is usually better than sitting to rest. ??? When you are resting for longer periods, mix in some mild activity or stretching between periods of rest. This will help to prevent stiffness and pain. ??? Get regular exercise. Ask your health care provider what activities are safe for you. ??? Do not lift anything that is heavier than 10 lb (4.5 kg), or the limit that you are told, untilyour health care provider says that it is safe. Always use proper lifting technique, which includes: ??? Bending your knees. ??? Keeping the load close to your body. ??? Avoiding twisting. ??? Sleep on a firm mattress in a comfortable position. Try lying on your side with your knees slightly bent. If you lie on your back, put a pillow under your knees. Medicines ??? Treatment may include medicines for pain and inflammation taken by mouth or applied to the skin, prescription pain medicine, or muscle relaxants. Take rpen-mnp-snfkqdg and prescription medicines only as told by your health care provider. ??? Ask your health care provider if the medicine prescribed to you: ??? Requires you to avoid driving or using machinery. ??? Can cause constipation. You may need to take these actions to prevent or treat constipation: ??? Drink enough fluid to keep your urine pale yellow. ??? Take gxwk-utk-aprvlte or prescription medicines. ??? Eat foods that are high in fiber, such as beans, whole grains, and fresh fruits and vegetables. ??? Limit foods that are high in fat and processed sugars, such as fried or sweet foods. General instructions ??? Do not use any products that contain nicotine or tobacco, such as cigarettes, e-cigarettes, andchewing tobacco. If you need help quitting, ask your health care provider. ??? Keep all follow-up visits as told by your health care provider. This is important. Contact a health care provider if: ??? You have pain that is not relieved with rest or medicine. ??? Your pain gets worse, or you have new pain. ??? You have a high fever. ??? You have rapid weight loss. ??? You have trouble doing your normal activities. Get help right away if: ??? You have weakness or numbness in one or both of your legs or feet. ??? You have trouble controlling your bladder or your bowels. ??? You have severe back pain and have any of the following: ??? Nausea or vomiting. ??? Pain in your abdomen. ??? Shortness of breath or you faint. Summary ??? Chronic back pain is back pain that lasts longer than 3 months. ??? When a flare-up begins, apply ice to the painful area for the first 24???48 hours. ??? Apply a moist heat pad or use a heating pad on the painful area as directed by your health careprovider. ??? When you are resting for longer periods, mix in some mild activity or stretching between periods of rest. This will help to prevent stiffness and pain. This information is not intended to replace advice given to you by your health care provider. Make sure you discuss any questions you have with your health care provider. Document Revised: 03/07/2020 Document Reviewed: 03/07/2020 [employer] Patient Education ?? 2022 [employer] Follow Up Care 11/21/2022 09:05:54 With:Rahat Ryan Address: [address] [place] [address] [address] [place] [address]- Business (1) When:5 to 7 days Comments:Follow-up with regular doctor for recheck, call for appointmentReturn for worsening, non improving symptoms CT Abdomen and Pelvis WO contrast * Frederick Perry MD: PERFORM, VERIFY, VERIFY Event Display: Report Authored Date: Note * Frederick Perry MD: PERFORM, VERIFY, VERIFY Event Display: Powerscribe Read Authored Date: PROCEDURE INFORMATION: Exam: CT Abdomen And Pelvis Without Contrast Exam date and time: 11/21/2022 12:43 PM Age: 66 years old Clinical indication: Abdominal pain TECHNIQUE: Imaging protocol: Computed tomography of the abdomen and pelvis without contrast. Radiation optimization: All CT scans at [...] months prior to the current study. COMPARISON: 1. MR Abd w wo Contrast 09/04/2022 10:[address] Abd Pelvis w Contrast 07/11/2022 10:46 PM FINDINGS: Limitations: Exam excludes upper half of abdomen. Liver: Small nodular liver suggesting cirrhosis. Gallbladder and bile ducts: Post cholecystectomy biliary dilatation unchanged. Pancreas: Unremarkable. Spleen: Enlarged measuring at least 9 x 18 cm. Adrenal glands: Normal. Kidneys and ureters: Unremarkable. No stones or obstruction. Stomach and bowel: No obstruction or inflammation in visualized portion. Appendix: Normal size. No inflammation. Intraperitoneal space: Less than 20 cc abdominal and pelvic ascites. No pneumoperitoneum. Retroperitoneal space: Mild retroperitoneal and mesenteric edema attributed to venous congestion unchanged. Vasculature: Retroperitoneal venous collaterals suggest portal venous hypertension. No abdominal aortic aneurysm. Lymph nodes: Prominent retroperitoneal lymph nodes unchanged. Urinary bladder: Unremarkable. Reproductive: Unremarkable prostate and seminal vesicles. Bones/joints: Demineralized bones. Old superior endplate compression fracture deformity of L3. Multilevel degenerative facet joint arthritis. Soft tissues: Unremarkable. IMPRESSION: 1. Cirrhosis, splenomegaly and portal venous hypertension. 2. No inflammation, obstruction or significant acute abnormalities. 3. Upper half of abdomen excluded from exam. Electronically signed by: Frederick Perry MD, [employer], 11/21/2022 13:13 Frederick Perry MD Signed 11/21/22 13:13:40 (Electronic Signature) Technologist GS Patient Care team information Care Team Personnel Name: Chantel Atkins Position: Inpatient-Midlevel Member Role: Nurse Practitioner Address: Address: [address] [place] [address]- Name: Shelby THOMAS ([facility])Rahat Position: PX Physician - Resident Member Role: Primary Care Physician Address: Address: [address] Name: Sapna Lopez RN Position: ED-Photo Nurse POC LP Member Role: Emergency Room Nurse Name: Lianne Villeda Position: ED-Midlevel LP Member Role: Ordering Physician Address: Address: [address] [place] [address]- Name: Gómez Dee DO Position: Physician-Emergency LP Member Role: Attending Physician Address: Address: [address] [place] [address]- Care Team Related Persons Name: SHAYNA ACOSTA Name: NONE, GIVEN Name: SHAYNA GUZMÁN Name: BASILIA NORTON
--- OUTSIDE RECORDS SUMMARY | 2022-12-15 13:21 | XMS_ITS | Continuity of Care Document ---
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 Maxillary Complete Denture ??? Mandibular 022 EDR Approval Note Denture Bites And Records EDR Approval Note Denture Impression Secondary EDR Approval Note Denture Impression Primary EDR Approval Note Extraction, Erupted Tooth Or Exposed Desire t (Elevati Extraction, Erupted Tooth Or Exposed Desire t (Elevati Extraction, Erupted Tooth Or Exposed Desire t (Elevati EDR Approval Note Extraction, Erupted Tooth Or Exposed Desire t (Elevati Extraction, Erupted Tooth Or Exposed Desire t (Elevati EDR Approval Note Extraction, Erupted Tooth Or Exposed Desire t (Elevati EDR Approval Note Extraction, Erupted Tooth Or Exposed Desire t (Elevati EDR Approval Note Comprehensive Oral Evaluation ??? New Or Established Panoramic Film Bitewings ??? Four Films Intraoral ??? Periapical First Film Intraoral ??? Periapical Each Additional Film Intraoral ??? Periapical Each Additional Film EDR Approval Note OFFICE/OUTPATIENT VISIT, NEW URINALYSIS AUTO W/O SCOPE Limited Oral Evaluation ??? Problem Focu sed Intraoral ??? Periapical Each Additional Film Extraction, Erupted Tooth Or Exposed Desire t (Elevati Limited oral eval, x-ray & 1st extractio n $184 EDR Approval Note Advance Directives Directive Yes / No Effective Date File Name No Information Encounters Encounter Description Practice Location Reason(s) For Visit Diagnoses Date Provider Providers Copied on Encounter [facility], [id number] [place], [place], [id number], [place] tel:[phone] [facility] Encounter for dental exam and cleaning w/o abnormal findings 2 Tisha Paz. [address] [place], [address], [place]. tel:[phone] Referring Provider: Jackson Giles, [address] [place], [address]. tel:[phone] [facility], [id number] [place], [address], [place] tel:[phone] [facility] No Information 1 Ba Tavares. [address] [place], [address], [place]. tel:[phone] Referring Provider: Chaitanya Ambrose, [address] [place], [address]. tel:[phone] [facility], [id number] [id number], [id number], [place] tel:[phone] [facility] No Information 1 Ba Tavares. [address] [place], [address], [place]. tel:[phone] Referring Provider: Chaitanya Ambrose, [address] [place], [address]. tel:[phone] [facility], [id number], [address], [place] tel:[phone] [facility] No Information 1 Ba Tavares. [address] [place], [address], [place]. tel:[phone] Referring Provider: Chaitanya Ambrose, [address] [place], [address]. tel:[phone] [facility], [id number] 259013[place], [address], [place] tel:[phone] [facility]2 Encounter for dental exam and cleaning w/o abnormal findings 1 Deven Henderson. [address] [place], [place], [address] , [place]. tel:[phone] Referring Provider: Santiago Carvalho, [address] [place], [address]. tel:[phone] [facility], [id number] [id number], [address], [place] tel:[phone] [facility] Encounter for dental exam and cleaning w/o abnormal findings May- 1 Deven Henderson. [address] [place], [place], [address] , [place]. tel:[phone] Referring Provider: Santiago Carvalho, [address] [place], [address]. tel:[phone] [facility], [id number] [id number][place], [address], [place] tel:[phone] [facility] Encounter for dental exam and cleaning w/o abnormal findings 1 Deven Henderson. [address] [place], [place], [address] , [place]. tel:[phone] Referring Provider: Santiago Carvalho, [address] [place], [address]. tel:[phone] [facility], [id number] [id number][place], [address], [place] tel:[phone] [facility] F2 Encounter for dental exam and cleaning w/o abnormal findings 1 Deven Henderson. [address] [place], [place], [address] , [place]. tel:[phone] Referring Provider: Santiago Carvalho, [address] [place], [address]. tel:[phone] [facility], [id number] [id number]-[place], [address], [place] tel:[phone] [facility] Encounter for dental exam and cleaning w/o abnormal findings 1 Deven Henderson. [address] [place], [place], [address] , [place]. tel:[phone] Referring Provider: Santiago Carvalho, [address] [place], [address]. tel:[phone] g Provider: Santiago Carvalho, [address] [place], [address]. tel:[phone] OFFICE/OUTPAT IENT VISIT, [facility], [id number] 288900LS-[place], [address], tel:[phone] [facility] left side pain (chief complaint) urinary urgency, frequency (chief complaint) abdominal pain (chief complaint) Kidney stoneDysuria Maurizio Travis. [address] [place], [place], [address] , [place]. tel:[phone] Referring Provider: Thaddeus Steven, [address] [place], [address]. tel:[phone] [facility], [id number] [id number][place], [address], tel:[phone] [facility] No Information 5 Ba Tavares. [address] [place], [address], [place]. tel:[phone] Referring Provider: Santiago Hunt, [address] [place], [address]. tel:[phone] Family History Family Member Type Diagnosis Age At Onset No Information Payers Payer name Insurance type Covered alliance party ID Authoriza tion(s) No Information Social History Type Description Quantity Date Captured Comments Alcohol Use Details No Caffeine Use Details Unknown Tobacco Use Status No Information Smoking Status No Information Sex Male Chief Complaint And Reason For Visit No Information Reason For Referral Reason For Referral No Information History Of Present Illness Encounter Date Complaint History Of Prese nt Illness urinary urgency, frequency left side pain abdominal pain Onset: 12hours. The severity of the problem is moderate. The problem is improving. The symptoms are intermittent. The location is left flank. The quality of the pain is sharp. The patient denies aggravating factors. The patient denies relieving factors. Associated symptoms include flank pain. Pertinent negatives include fever. Additional information: Pt states sxs began last night. States that the pain is a pinching feeling, has an hx of kidney stones, but states this does not hurt nearly as bad as it did when he had those. Hx of kidney stone treated with U/S in the past. Functional Status Date Functional Assessmen t No Information Instructions Date Instruction Additional Infor jesusita Since pt has hx of r enal stone requiring lithotripsy and unable to ascertain size, location or composition of stone, will refer to ER for further evaluation and treatment. Pt will travel by [facility], stable at time of transfer. Related to Kidney stone Assessments Type Assessment Date assessment Encounter for dental exam and cl eaning w/o abnormal findings Patient Care Teams Name Effective Dates (start - stop) Status Members No Information
[2022-12-15 13:48] VITALS: BP 128/76; PULSE 65; RESP 17; TEMP 36.5; O2SAT 99
[2022-12-15 13:50] VITALS: BMI 31.8
[2022-12-15 14:00] VITALS: BP 128/76; PULSE 65; RESP 17; TEMP 36.5; O2SAT 99
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
[2022-12-15] MEDS: OLANZapine 5 mg ODT PO (17:29)
[2022-12-15 20:15] VITALS: BP 110/64; PULSE 60; RESP 16; TEMP 36.6; O2SAT 97
[2022-12-16 06:00] VITALS: BP 122/64; PULSE 68; RESP 16; TEMP 37.1; O2SAT 97
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
[2022-12-16 13:42] VITALS: BP 111/56; PULSE 74; RESP 20; TEMP 36.8; O2SAT 97
[2022-12-16 20:00] VITALS: BP 111/64; PULSE 84; RESP 18; TEMP 36.6; O2SAT 94
[2022-12-16] MEDS: OLANZapine 10 mg TABLET PO (20:18)
[2022-12-17 06:00] VITALS: BP 129/65; PULSE 54; RESP 15; TEMP 36.3; O2SAT 95
--- NOTE | 2022-12-17 08:04 | PC.NURSE ---
Patient denies avh and si/hi this morning. He did endorse being anxious and when asked if he knew what was making him have these feelings he replied, I'm thinking about fasting. I just thought I'd let you know. He was also unable to answer what had made him think about fasting. Patient stated he feels whooped this morning, but that he couldn't explain why.
[2022-12-17] MEDS: levothyroxine 50 mcg Tablet PO (09:20)
[2022-12-17] MEDS: spironolactone 25 mg Tablet 50 MG PO (09:20)
--- NOTE | 2022-12-17 12:10 | W.PM.NPUPNS ---
Subjective NPU Subjective: Patient presents today reporting that he is tolerating the medication however it was a bit stronger with the 10 mg of Zyprexa. He reports that he overestimated his ability to manage the medication and would like to start a little slower. We discussed the risks benefits and alternatives of decreasing the Zyprexa to 5 mg p.o. nightly until he adjusts to it and then returning at the 10 mg and he understood and agreed to proceed as is documented in this note. Mental Status Exam MSE Comments: This is a well-nourished, well-developed, white male, in hospital scrubs, looking slightly older than a stated age, with poor dentition, with adequate grooming and eye contact. No abnormal movements, except for mild psychomotor retardation. Mostly cooperative with exam in mild distress. Speech was normal rate and volume. Mood described as good; affect congruent. Thought process, organized. Thought content: patient denied any suicidal or homicidal ideation, there were no delusions reported or noted, patient endorses auditory and visual hallucinations. Attention, concentration, and memory appeared intact, but none were formally tested. Alert and oriented times three. Insight and judgment appear impaired. Impulse control is impaired. Vitals/I&O/Wt Last Vital Signs Temp 97.3 F L 12/17/22 06:00 Pulse 54 L 12/17/22 06:00 Resp 15 12/17/22 06:00 BP 129/65 12/17/22 06:00 Pulse Ox 95 12/17/22 06:00 O2 Del Method Room Air 12/17/22 06:00 Weight last 48 hrs Weight 112.491 kg A&P Assessment and plan (1) Cluster A personality disorder: (2) Schizophrenia: (3) History of bipolar disorder: (4) Opioid use disorder, severe, dependence: Plan This is a 66, almost 67 -year-old, white male, known from past hospitalization with significant psychosis off medication with active delusions and historical and active addiction issues. 1.? Restart medications. 2.? Started Zyprexa 10 mg p.o. daily, but patient lethargic so we agreed to reduce to 5 mg p.o. nightly for few days before resuming. He agreed to restart Synthroid and spironolactone.. 3.? Encourage individual, group, and milieu therapy. 4.? Continue q-15-minute checks for safety. 5.? Recommend sober living treatment at the highest level of care to which the patient is willing to commit. Involuntary Hold Information 96 Hour Hold: 96 Hour Involuntary Admission: No Attestations NPU Medical Necessity Statement*: Inpatient hospitalization is medically necessary and the clinically appropriate intervention, at this time. We will monitor medications and make changes as indicated. Likely length of stay is three to five days. Coding Level of Care Code Acute Code for Chg Fwd Diagnoses Cluster A personality disorder F60.89 Schizophrenia F20.9 History of bipolar disorder Z86.59 Opioid use disorder, severe, dependence F11.20
[2022-12-17 14:00] VITALS: BP 109/73; PULSE 70; RESP 15; TEMP 36.9; O2SAT 98
--- NOTE | 2022-12-17 14:20 | PC.NURSE ---
Patient asked this RN if I could let the doctor know he would like his zyprexa dosage cut in half because he feels like it was making him too drowsy to function. Doctor Whiteside was notified.
[2022-12-17] MEDS: OLANZapine 5 mg TABLET PO (20:25)
--- NOTE | 2022-12-17 21:04 | PC.NURSE ---
IN DAY ROOM SITTING DOWN. REQUEST THAT THE GIVE HIM ATIVAN FOR A PANIC ATTACK HE IS HAVING. NO ANXIETY IS OBSERVED ONLY REPORTED PT STATES HE IS HEARING VOICES BUT I AM CHARISMATIC SO THATS NOT UNUSAUL. DENIES VH, AND DENIES SI/HI. PT STATES I HAVE BEEN YELLING AT MYSELF ALL DAY. PT WAS OFFERED PRN VISTARIL OR HALDOL BUT PT DECLINED STATING HE ONLY WANTS ATIVAN. DR. GONSALEZ WAS NOTIFIED OF PT REQUEST NO NEW ORDERS WERE RECEIVED. PT TOOK BEDTIME MEDICATIONS AND THEN WENT TO BED NO OTHER COMPLAINTS WERE MADE. ALL QUESTIONS ANSWERED AND SUPPORT WAS VOICED.
[2022-12-17 21:19] VITALS: BP 115/68; PULSE 76; RESP 18; TEMP 36.9; O2SAT 96
[2022-12-17] MEDS: trazodone 50 mg Tablet PO (22:19)
[2022-12-17] MEDS: haloperidol 5 mg Tablet PO (22:19)
[2022-12-17] MEDS: OLANZapine 5 mg ODT PO (23:56)
[2022-12-17] MEDS: hyDROXYzine 25 mg Capsule 50 MG PO (23:56)
--- NOTE | 2022-12-17 23:58 | PC.NURSE ---
PT CONTINUES TO COMPLAIN I CAN'T SLEEP, I NEED TO SLEEP. PT WAS GIVEN ZYDIS 5 MG AND VISTARIL 50 MG FOR INCREASED ANXIETY. PT WAS EDUCATED THAT THESE MEDICATIONS WILL MAKE IT EASIER TO GO TO SLEEP. PT WAS THANKFUL AND THANKED RN. SUPPORT VOICED.
[2022-12-18] MEDS: trazodone 50 mg Tablet PO (01:07)
--- NOTE | 2022-12-18 01:07 | PC.NURSE ---
PT BACK UP TO NURSES STATION STATING THOSE MEDS DIDN'T HELP ME GO TO SLEEP CAN YOU GIVE ME SOMETHING ELSE.? AFTER REVIEWING PT ORDERS RN ADMINISTERED THE SECOND DOSE OF TRAZODONE 50 MG FOR INSOMNIA. PT WENT TO DAY ROOM TO WATCH MORE TV. PT WAS EDUCATED TO STOP WATCHING TV AND GO TO ROOM TO LAY DOWN TO SEE IF HE COULD GO TO SLEEP. PT DECLINE AND CONTINUED TO DAY ROOM.
--- NOTE | 2022-12-18 05:07 | PC.NURSE ---
PT WAS GIVEN ZYDIS 5 MG, TRAZODONE 50 MG TIMES 2, VISTARIL 50 MG AND HALDOL 5MG DURING THE SHIFT. PT DID FINALLY LAY DOWN AT 300 AM AND GOT SOME REST. PT HAS SLEPT APPROXIMATELY 2-3 HOURS THIS SHIFT.
[2022-12-18 06:00] VITALS: RESP 16
[2022-12-18] MEDS: spironolactone 25 mg Tablet 50 MG PO (09:15)
[2022-12-18] MEDS: levothyroxine 50 mcg Tablet PO (09:15)
--- NOTE | 2022-12-18 09:25 | PC.NURSE ---
patient resting in bed, patient reports feeling groggy for not falling asleep until the middle of the night. Patient states that he is doing ok . Patient denies depression, SI, HI, AVH, and anxiety.
[2022-12-18 14:00] VITALS: BP 106/67; PULSE 70; RESP 16; TEMP 36.8; O2SAT 99
--- NOTE | 2022-12-18 17:34 | P.NPUPN_ITS ---
Subjective NPU Subjective: Patient presented today reporting that he is feeling better but really struggled with sleep last night. He reported that he would like to return to the 10 mg of Zyprexa with hopes that that would help with his sleep tonight. He reported working with the social work team to find a reasonable place to go but continues to seem to be focused on his [employer] for over an homelessness being a statement of [employer] integrity. Mental Status Exam MSE Comments: This is a well-nourished, well-developed, white male, in hospital scrubs, looking slightly older than a stated age, with poor dentition, with adequate grooming and eye contact. No abnormal movements, except for mild psychomotor retardation. Mostly cooperative with exam in mild distress. Speech was normal rate and volume. Mood described as good; affect congruent. Thought process, organized. Thought content: patient denied any suicidal or homicidal ideation, there were no delusions reported or noted, patient endorses auditory and visual hallucinations. Attention, concentration, and memory appeared intact, but none were formally tested. Alert and oriented times three. Insight and judgment appear impaired. Impulse control is impaired. Vitals/I&O/Wt Last Vital Signs Temp 97.9 F 12/18/22 20:00 Pulse 76 12/18/22 20:00 Resp 15 12/18/22 20:00 BP 123/61 12/18/22 20:00 Pulse Ox 97 12/18/22 20:00 O2 Del Method Room Air 12/18/22 20:00 A&P Assessment and plan (1) Cluster A personality disorder: (2) Schizophrenia: (3) History of bipolar disorder: (4) Opioid use disorder, severe, dependence: Plan This is a 66, almost 67 -year-old, white male, known from past hospitalization with significant psychosis off medication with active delusions and historical and active addiction issues. 1.? Restart medications. 2.? Started Zyprexa 10 mg p.o. daily, but patient lethargic so we agreed to reduce to 5 mg p.o. nightly for few days before resuming. Patient agreed to return to 10 mg tonight. We restarted Synthroid and spironolactone.. 3.? Encourage individual, group, and milieu therapy. 4.? Continue q-15-minute checks for safety. 5.? Recommend sober living treatment at the highest level of care to which the patient is willing to commit. Involuntary Hold Information 96 Hour Hold: 96 Hour Involuntary Admission: No Attestations NPU Medical Necessity Statement*: Inpatient hospitalization is medically necessary and the clinically appropriate intervention, at this time. We will monitor medications and make changes as indicated. Likely length of stay is 2-4 days. Coding Level of Care Code Acute Code for g Fwd Diagnoses Cluster A personality disorder F60.89 Schizophrenia F20.9 History of bipolar disorder Z86.59 Opioid use disorder, severe, dependence F11.20
[2022-12-18] MEDS: acetaminophen 325 mg Tablet 650 MG PO (18:22)
[2022-12-18] MEDS: hyDROXYzine 25 mg Capsule 50 MG PO (18:44)
[2022-12-18] MEDS: OLANZapine 10 mg TABLET PO (19:53)
[2022-12-18 20:00] VITALS: BP 123/61; PULSE 76; RESP 15; TEMP 36.6; O2SAT 97
[2022-12-19] MEDS: trazodone 50 mg Tablet PO ×2 (00:02→20:36)
[2022-12-19 06:00] VITALS: BP 120/62; PULSE 72; RESP 16; TEMP 36.4; O2SAT 97
[2022-12-19] MEDS: levothyroxine 50 mcg Tablet PO (09:12)
[2022-12-19] MEDS: spironolactone 25 mg Tablet 50 MG PO (09:12)
[2022-12-19 14:00] VITALS: BP 113/66; PULSE 66; RESP 18; TEMP 36.6; O2SAT 98
--- NOTE | 2022-12-19 17:27 | W.PM.NPUPNS ---
Subjective NPU Subjective: Patient presented today reporting that he did sleep better last night and feels better on the 10 mg of Zyprexa. He reports that he is doing well with the other medications for his medical challenges. He reports that he is starting to feel clear and feels optimistic that we can get him back in the [place] area on Thursday. We agreed to take it a day at a time but discussed that that might be possible. He denied any side effects of the medication. Mental Status Exam MSE Comments: This is a well-nourished, well-developed, white male, in hospital scrubs, looking slightly older than a stated age, with poor dentition, with adequate grooming and eye contact. No abnormal movements, except for mild psychomotor retardation. Mostly cooperative with exam in mild distress. Speech was normal rate and volume. Mood described as good; affect congruent. Thought process, organized. Thought content: patient denied any suicidal or homicidal ideation, there were no delusions reported or noted, patient endorses auditory and visual hallucinations. Attention, concentration, and memory appeared intact, but none were formally tested. Alert and oriented times three. Insight and judgment appear impaired. Impulse control is impaired. Vitals/I&O/Wt Last Vital Signs Temp 97.8 F 12/19/22 14:00 Pulse 66 12/19/22 14:00 Resp 18 12/19/22 14:00 BP 113/66 12/19/22 14:00 Pulse Ox 98 12/19/22 14:00 O2 Del Method Room Air 12/19/22 14:00 A&P Assessment and plan (1) Cluster A personality disorder: (2) Schizophrenia: (3) History of bipolar disorder: (4) Opioid use disorder, severe, dependence: Plan This is a 66, almost 67 -year-old, white male, known from past hospitalization with significant psychosis off medication with active delusions and historical and active addiction issues. 1.? Restart medications. 2.? Started Zyprexa 10 mg p.o. daily, but patient lethargic so we agreed to reduce to 5 mg p.o. nightly for few days before resuming. Patient agreed to return to 10 mg 12/18/2022. We restarted Synthroid and spironolactone.. 3.? Encourage individual, group, and milieu therapy. 4.? Continue q-15-minute checks for safety. 5.? Recommend sober living treatment at the highest level of care to which the patient is willing to commit. Involuntary Hold Information 96 Hour Hold: 96 Hour Involuntary Admission: No Attestations NPU Medical Necessity Statement*: Inpatient hospitalization is medically necessary and the clinically appropriate intervention, at this time. We will monitor medications and make changes as indicated. Likely length of stay is 2-3days. Coding Level of Care Code Acute Code for Chg Fwd Diagnoses Cluster A personality disorder F60.89 Schizophrenia F20.9 History of bipolar disorder Z86.59 Opioid use disorder, severe, dependence F11.20
[2022-12-19 20:07] VITALS: BP 119/67; PULSE 72; RESP 18; O2SAT 94
--- NOTE | 2022-12-19 20:10 | PC.NURSE ---
IN BED RESTING AROUSES TO VOICE. DENIES PAIN. DENIES SI/HI AND AVH AT THIS TIME. REPORTS DEPRESSION 0/10 AND ANXIETY 0/10. PT IS STILL REQUESTING ANXIETY MEDICATION, STATES THEY HELP ME CALM DOWN AND REST, THAT WAY I DON'T HAVE A PANIC ATTACK. PT IS OBSERVED TALKING TO SELF AT TIMES. PT IS ALSO REQUESTING MEDICATION TO HELP ME SLEEP. THIS RN EDUCATED PT ON MEDICATIONS AND INFORMED PT THAT IF HE STILL NEEDED THE PRN MEDICATION WHEN ITS TIME TO GET BEDTIME MEDICATIONS THEN RN WOULD GIVE HIM THE MEDS THEN. PT AGREED. ALL QUESTIONS ANSWERED AND SUPPORT VOICED.
[2022-12-19] MEDS: haloperidol 5 mg Tablet PO (20:36)
[2022-12-19] MEDS: OLANZapine 10 mg TABLET PO (20:36)
[2022-12-20 06:00] VITALS: BP 100/63; PULSE 53; RESP 16; O2SAT 96
--- NOTE | 2022-12-20 08:01 | P.NPUPN_ITS ---
Subjective NPU Subjective: Patient presented today reporting that things are going fairly well. He reports that he is adjusting to the 10 mg of Zyprexa at night and is feeling much more optimistic about how things are going. He reports that he is focused on staying on these medications and returning to the [place] area. We discussed the plan to discharge him on Thursday. Mental Status Exam MSE Comments: This is a well-nourished, well-developed, white male, in hospital scrubs, looking slightly older than a stated age, with poor dentition, with adequate grooming and eye contact. No abnormal movements, except for mild psychomotor retardation. Mostly cooperative with exam in mild distress. Speech was normal rate and volume. Mood described as good; affect congruent. Thought process, organized. Thought content: patient denied any suicidal or homicidal ideation, there were no delusions reported or noted, patient endorses auditory and visual hallucinations. Attention, concentration, and memory appeared intact, but none were formally tested. Alert and oriented times three. Insight and judgment appear impaired. Impulse control is impaired. Vitals/I&O/Wt Last Vital Signs Temp 97.8 F 12/19/22 14:00 Pulse 53 L 12/20/22 06:00 Resp 16 12/20/22 06:00 BP 100/63 12/20/22 06:00 Pulse Ox 96 12/20/22 06:00 O2 Del Method Room Air 12/19/22 20:07 A&P Assessment and plan (1) Cluster A personality disorder: (2) Schizophrenia: (3) History of bipolar disorder: (4) Opioid use disorder, severe, dependence: Plan This is a 66, almost 67 -year-old, white male, known from past hospitalization with significant psychosis off medication with active delusions and historical and active addiction issues. 1.? Restart medications. 2.? Started Zyprexa 10 mg p.o. daily, but patient lethargic so we agreed to reduce to 5 mg p.o. nightly for few days before resuming. Patient agreed to return to 10 mg 12/18/2022. We restarted Synthroid and spironolactone.. 3.? Encourage individual, group, and milieu therapy. 4.? Continue q-15-minute checks for safety. 5.? Recommend sober living treatment at the highest level of care to which the patient is willing to commit. Involuntary Hold Information 96 Hour Hold: 96 Hour Involuntary Admission: No Attestations NPU Medical Necessity Statement*: Inpatient hospitalization is medically necessary and the clinically appropriate intervention, at this time. We will monitor medications and make changes as i ndicated. Likely length of stay is 2-3 days. Coding Level of Care Code Acute Code for [facility] Fwd Diagnoses Cluster A personality disorder F60.89 Schizophrenia F20.9 History of bipolar disorder Z86.59 Opioid use disorder, severe, dependence F11.20
[2022-12-20] MEDS: spironolactone 25 mg Tablet 50 MG PO (10:08)
[2022-12-20] MEDS: levothyroxine 50 mcg Tablet PO (10:08)
[2022-12-20 14:00] VITALS: BP 117/65; PULSE 70; RESP 20; TEMP 36.8; O2SAT 99
[2022-12-20 20:00] VITALS: BP 123/66; PULSE 71; RESP 14; TEMP 36.7; O2SAT 98
[2022-12-20] MEDS: OLANZapine 10 mg TABLET PO (20:03)
--- NOTE | 2022-12-20 20:03 | PC.NURSE ---
IN DAY ROOM WATCHING TV. INFORMS RN THAT HE ONLY WANTS MY ZYPREXA, I DON'T NEED ANYTHING FOR SLEEP AND ANXIETY. RN ASSURE PT THAT IT IS OK AND WILL ONLY GIVE HIM THE ZYPREXA 10 MG THAT IS ORDERED FOR BED TIME. PT DENIES SI/HI AND AVH AT THIS TIME. PT DENIES ANXIETY OR DEPRESSION RATING BOTH A 0/10. DENIES PAIN. PT CONTINUES TO HAVE A FLAT AFFECT AND MINIMAL EYE CONTACT. DOES REQUEST MORE SNACKS. PT ASSURED THAT [employer] WAS CONTACTED TO GET MORE SNACKS. PT CONTINUES TO WATCH TV.
[2022-12-20] MEDS: trazodone 50 mg Tablet PO ×2 (22:00→23:12)
[2022-12-20] MEDS: hyDROXYzine 25 mg Capsule 50 MG PO (22:00)
--- NOTE | 2022-12-20 22:02 | PC.NURSE ---
PT UP TO NURSES STATION STATING HE CAN NOT SLEEP AND HE IS ANXIOUS. PT WAS GIVEN TRAZODONE 50 MG FOR INSOMNIA AND VISTARIL 50 MG FOR INCREASED ANXIETY. PT THEN GOT A SNACK AND WALKED DOWN TO DAY ROOM.
[2022-12-20] MEDS: OLANZapine 5 mg ODT PO (23:12)
--- NOTE | 2022-12-20 23:14 | PC.NURSE ---
PT CONTINUES TO COME TO NURSES STATION STATING HE CAN NOT SLEEP. PT WAS EDUCATED THAT HE HAD TRAZODONE AND VISTARIL AN HOUR AND TEN MINUTES AGO AND HE NEEDS GOMEZ WAIT AND LET IT HAVE TIME TO WORK. PT CONTINUED TO TO REQUEST HE BE GIVEN MORE MEDICATIONS TO HELP HIM SLEEP, AND DEMANDED THIS RN CALL THE DR. PT WAS GIVEN ZYDIS 5 MG FOR INCREASED ANXIETY AND A SECOND DOSE OF TRAZODONE 50 MG. PT TOOK BOTH MEDICATIONS AND THEN WENT TO THE DAY ROOM TO WATCH TV. SUPPORT WAS VOICED.
[2022-12-21 06:00] VITALS: BP 126/69; PULSE 71; RESP 14; TEMP 36.8; O2SAT 97
--- NOTE | 2022-12-21 08:52 | P.NPUPN_ITS ---
Subjective NPU Subjective: Patient presented today reporting that he is still feeling optimistic about discharge tomorrow. We discussed working with the social team first thing in the morning to arrange logistics for returning to the [place] area. He reports he is adjusting to the Zyprexa and any grogginess is diminishing. Mental Status Exam MSE Comments: This is a well-nourished, well-developed, white male, in hospital scrubs, looking slightly older than a stated age, with poor dentition, with adequate grooming and eye contact. No abnormal movements, except for mild psychomotor retardation. Mostly cooperative with exam in mild distress. Speech was normal rate and volume. Mood described as good; affect congruent. Thought process, organized. Thought content: patient denied any suicidal or homicidal ideation, there were no delusions reported or noted, patient endorses auditory and visual hallucinations. Attention, concentration, and memory appeared intact, but none were formally tested. Alert and oriented times three. Insight and judgment appear improving. Impulse control is improving. Vitals/I&O/Wt Last Vital Signs Temp 98.3 F 12/21/22 06:00 Pulse 71 12/21/22 06:00 Resp 14 12/21/22 06:00 BP 126/69 12/21/22 06:00 Pulse Ox 97 12/21/22 06:00 O2 Del Method Room Air 12/21/22 06:00 Weight last 48 hrs Weight 108.862 kg A&P Assessment and plan (1) Cluster A personality disorder: (2) Schizophrenia: (3) History of bipolar disorder: (4) Opioid use disorder, severe, dependence: Plan This is a 66, almost 67 -year-old, white male, known from past hospitalization with significant psychosis off medication with active delusions and historical and active addiction issues. 1.? Restart medications. 2.? Started Zyprexa 10 mg p.o. daily, but patient lethargic so we agreed to reduce to 5 mg p.o. nightly for few days before resuming. Patient agreed to return to 10 mg 12/18/2022. We restarted Synthroid and spironolactone.. 3.? Encourage individual, group, and milieu therapy. 4.? Continue q-15-minute checks for safety. 5.? Recommend sober living treatment at the highest level of care to which the patient is willing to commit. Involuntary Hold Information 96 Hour Hold: 96 Hour Involuntary Admission: No Attestations NPU Medical Necessity Statement*: Inpatient hospitalization is medically necessary and the clinically appropriate intervention, at this time. We will monitor medications and make changes as indicated. Likely length of stay is 1-3 days. Coding Level of Care Code Acute Code for [facility] Fwd Diagnoses Cluster A personality disorder F60.89 Schizophrenia F20.9 History of bipolar disorder Z86.59 Opioid use disorder, severe, dependence F11.20
[2022-12-21] MEDS: spironolactone 25 mg Tablet 50 MG PO (09:03)
[2022-12-21] MEDS: levothyroxine 50 mcg Tablet PO (09:03)
[2022-12-21 14:00] VITALS: BP 132/71; PULSE 77; RESP 18; TEMP 36.9; O2SAT 100
[2022-12-21] MEDS: trazodone 50 mg Tablet PO ×2 (20:28→22:29)
[2022-12-21] MEDS: OLANZapine 10 mg TABLET PO (20:28)
[2022-12-21] MEDS: haloperidol 5 mg Tablet PO (20:28)
--- NOTE | 2022-12-21 20:41 | PC.NURSE ---
IN ROOM RESTING AROUSES TO VOICE. DENIES PAIN, DENIES SI/HI AND AVH AT THIS TIME. PT REQUESTS MEDICATION FOR ANXIETY AND SLEEP. PT WAS GIVEN TRAZODONE 50 MG FOR INSOMNIA AND HALDOL 5 MG FOR REPORTED INCREASED ANXIETY. PT WAS GIVEN SEVERAL SNACKS REQUESTED, ATE THEM AND LAID DOWN TO REST. ALL QUESTIONS ANSWERED AND SUPPORT VOICED. PT CONTINUES TO HAVE A FLAT AFFECT.
[2022-12-21 20:59] VITALS: BP 118/85; PULSE 82; RESP 16; TEMP 36.6; O2SAT 96
[2022-12-21] MEDS: hyDROXYzine 25 mg Capsule 50 MG PO (22:29)
--- NOTE | 2022-12-21 22:32 | PC.NURSE ---
AT NURSES STATION REQUESTING SOMETHING FOR ANXIETY AND TO HELP HIM SLEEP. PT WAS GIVEN A 2ND DOSE OF TRAZODONE 50 MG AND VISTARIL 50 MG WAS GIVEN FOR ANXIETY. PT THEN WENT BACK TO BED.
[2022-12-21] MEDS: ibuprofen 600 mg Tablet PO (23:46)
[2022-12-22 06:00] VITALS: BP 143/79; PULSE 63; RESP 16; O2SAT 95
[2022-12-22] MEDS: spironolactone 25 mg Tablet 50 MG PO (07:49)
[2022-12-22] MEDS: levothyroxine 50 mcg Tablet PO (07:49)
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
[2022-12-22 14:00] VITALS: BP 112/68; PULSE 80; RESP 18; TEMP 36.8; O2SAT 99
[2022-12-22 14:12] VITALS: BP 112/68; PULSE 80; RESP 18; TEMP 36.8; O2SAT 99
== END 2022-12-22 16:01 | disposition home or self-care (01) | DRG 885 ==
PROVIDERS: Admitting Provider Psychiatry & Neurology Psychiatry; Visit Provider Psychiatry & Neurology Psychiatry
DX: F20.9 Schizophrenia, unspecified (principal); Z59.00 Homelessness unspecified; F60.89 Other specific personality disorders; Z91.148 Patient's other noncompliance with medication regimen for other reason; F11.10 Opioid abuse, uncomplicated
CPT/HCPCS: 97150; 97165

== ENCOUNTER 2024-07-06 19:32 | Emergency (ER) | payer MEDICARE, MEDICAID, SELFPAY ==
[2024-07-06 19:40] VITALS: BP 114/65; PULSE 73; RESP 16; TEMP 36.8; O2SAT 95
--- NOTE | 2024-07-07 00:55 | W.ED.WOUNDLC ---
HPI - Wound/Laceration General: Chief Complaint: Wound/Laceration Stated Complaint: ABD PAIN, FEVER Time Seen by Provider: 07/07/24 00:44 History of Present Illness: 68-year-old man with a history of chronic pain syndrome on Dilaudid he says for chronic liver cancer and a large mass on his right hip who presents emergency [facility] with concern that it has a foul smell. He has a dressing placed on this and has packing. He tells me he does not want it removed and tells me that it is a hindu gift. He calls it a stigmata. He says it was given to him by . He says it has been there for a long time. He says he did not want to come to the emergency room but because of the smell the [facility] here. No fevers. No increased pain. Related Data Previous Rx's ?Medication ?Instructions ?Recorded hydroxyzine pamoate 25 mg capsule 50 mg (2 x 25 mg) PO Q6H PRN 12/22/22 Anxiety 30 days #120 caps levothyroxine 50 mcg tablet 50 mcg PO DAILY 30 days #30 tabs 12/22/22 (Synthroid) olanzapine 10 mg tablet 10 mg PO BEDTIME 30 days #30 tabs 12/22/22 spironolactone 50 mg tablet 50 mg PO DAILY 30 days #30 tabs 12/22/22 trazodone 50 mg tablet 50 mg PO BEDTIME PRN Sleep 30 days 12/22/22 #30 tabs clindamycin HCl 300 mg capsule 600 mg (2 x 300 mg) PO QID 10 days 07/07/24 (Cleocin HCl) #80 caps Allergies Allergy/AdvReac Type Severity Reaction Status Date / Time codeine Allergy Unknown Verified 09/05/21 04:47 latex Allergy Unknown Verified 09/05/21 04:47 naloxone (From [facility] NX) Allergy Unknown Verified 09/05/21 04:47 Penicillins Allergy Unknown Verified 09/05/21 04:47 pentazocine (From [facility] NX) Allergy Unknown Verified 09/05/21 04:47 Sulfa (Sulfonamide Allergy Unknown Verified 09/05/21 04:47 Antibiotics) Review of Systems Narrative: Constitutional symptoms: Negative except as documented in HPI. Skin symptoms: Negative except as documented in HPI. Eye symptoms: Negative except as documented in HPI. ENMT symptoms: Negative except as documented in HPI. Respiratory symptoms: Negative except as documented in HPI. Cardiovascular symptoms: Negative except as documented in HPI. Gastrointestinal symptoms: Negative except as documented in HPI. Genitourinary symptoms: Negative except as documented in HPI. Musculoskeletal symptoms: Negative except as documented in HPI. Neurologic symptoms: Negative except as documented in HPI. Psychiatric symptoms: Negative except as documented in HPI. Endocrine symptoms: Negative except as documented in HPI. [facility] ED PFSH: Medical History (Updated 07/07/24 @ 02:09 by Marija Rangel MD) Psychiatric care History of bipolar disorder Physical Exam Narrative: EXAM NARRATIVE: General: Alert, no acute distress. Skin: Warm, dry. Head: Normocephalic, atraumatic. Neck: Supple, trachea midline. Eye: Extraocular movements are intact. Ears, nose, mouth and throat: mucosa moist. Cardiovascular: Regular, Normal peripheral perfusion. Respiratory: Lungs are clear to auscultation, respirations are non-labored, breath sounds are equal, Symmetrical chest wall expansion. Gastrointestinal: Soft, Nontender, Non distended Musculoskeletal: Normal ROM, no deformity. Patient has a large mass on his right leg that is covered in skin the skin appears normal around the outside but has a large opening at the center of this. There is packing in it. Some mild surrounding erythema. Does have some drainage. Neurological: Alert and oriented, No focal neurological deficit observed. Psychiatric: Cooperative, appropriate mood & affect. Course Vital Signs: Vital signs: Vital Signs Temperature 98.2 F 07/06/24 19:40 Pulse Rate 67 07/07/24 01:52 Respiratory Rate 16 07/07/24 01:52 Blood Pressure 126/70 07/07/24 01:52 Pulse Oximetry 96 07/07/24 01:52 Oxygen Delivery Me thod Room Air 07/07/24 01:52 MDM - Wound/Laceration Medical Decision Making Medical decision making: Differential diagnosis including but not limited to and based on the above HPI, review of systems and physical exam: Orders placed to evaluate differential diagnosis based on the above differential, HPI and physical exam. Would have concern for a wound infection or sepsis. Basic lab work cultures and lactate and ESR and CRP were ordered. Lab Review: Laboratory results were reviewed and interpreted by myself the emergency room physician. Lab work is fairly unremarkable. No leukocytosis. No anemia. No renal failure. ESR and CRP are mildly elevated at 12 and 40 respectively. I reviewed the patient's medical record. Reexamination: Patient remained stable. No increased work of breathing. No altered mental status. No focal motor deficits. I would recommend the patient have this removed at some point however given its hindu significance to him I do not believe it is going to happen anytime soon. Assessment and plan: Leg mass Wound Chronic pain syndrome ? IV cefepime in the emergency room. Also some Dilaudid which she takes on a regular basis. - Discharged home - Discussed plan with patient. Answered any questions. - Evaluation and treatment of this problem were appropriate in the emergency setting. Lab Data 07/07/24 01:38 07/07/24 01:38 Laboratory Results WBC 10.39 10^3/uL (3.29-11.43) 07/07/24 01:38 Corrected WBC Cancelled 07/07/24 01:17 RBC 5.02 10^6/uL (3.85-5.65) 07/07/24 01:38 Hgb 16.10 g/dL (11.27-16.99) 07/07/24 01:38 Hct 48.6 % (37-53) 07/07/24 01:38 MCV 96.8 fl (82-101) 07/07/24 01:38 MCH 32.1 pg (27-33) 07/07/24 01:38 MCHC 33.1 g/dL (30-55) 07/07/24 01:38 RDW 16.6 % (12.1-15.1) H 07/07/24 01:38 Plt Count 222 10^3/cmm (157-399) 07/07/24 01:38 MPV 10.2 fL (7.4-10.4) 07/07/24 01:38 Gran % Cancelled 07/07/24 01:17 Neut % (Auto) 74.2 % 07/07/24 01:38 Lymph % (Auto) 12.8 % 07/07/24 01:38 Barren % (Auto) 8.4 % 07/07/24 01:38 Eos % (Auto) 3.0 % 07/07/24 01:38 Baso % (Auto) 1.0 % 07/07/24 01:38 Neut # (Auto) 7.72 10^3/uL (1.8-7.7) H 07/07/24 01:38 Lymph # (Auto) 1.3 10^3/uL (0.8-4.8) 07/07/24 01:38 Barren # (Auto) 0.9 10^3/uL (0.2-0.9) 07/07/24 01:38 Eos # (Auto) 0.3 10^3/uL (0.0-0.8) 07/07/24 01:38 Baso # (Auto) 0.1 10^3/uL (0.0-0.1) 07/07/24 01:38 Absolute Gran (auto) Cancelled 07/07/24 01:17 Nucleated RBC % (auto) 0 % 07/07/24 01:38 Nucleated RBCs # 0.0 /100WBC 07/07/24 01:38 ESR 12 mm/hr (0-10) H 07/07/24 01:38 Sodium 134 mmol/L (136-145) L 07/07/24 01:38 Potassium 4.4 mmol/L (3.5-5.1) 07/07/24 01:38 Chloride 101 mmol/L (98-107) 07/07/24 01:38 Carbon Dioxide 24 mmol/L (22-29) 07/07/24 01:38 Anion Gap 13.4 (5-19) 07/07/24 01:38 BUN 11 mg/dL (8-23) 07/07/24 01:38 Creatinine 0.5 mg/dL (0.7-1.2) L 07/07/24 01:38 GFR Calculation 166.4 mL/min (90-130) H 07/07/24 01:38 Glucose 89 mg/dL (65-115) 07/07/24 01:38 Calculated Osmolality 277 mOsm/kg (285-295) L 07/07/24 01:38 Calcium 8.3 mg/dL (8.5-10.5) L 07/07/24 01:38 Total Bilirubin 4.1 mg/dL (0.15-1.2) H 07/07/24 01:38 AST 163 U/L (0-40) H 07/07/24 01:38 ALT 71 U/L (0-41) H 07/07/24 01:38 Alkaline Phosphatase 262 U/L (40-130) H 07/07/24 01:38 C-Reactive Protein 41.6 mg/L (0.0-4.9) H 07/07/24 01:38 Total Protein 6.1 g/dL (6.6-8.7) L 07/07/24 01:38 Albumin 2.6 g/dL (3.5-5.2) L 07/07/24 01:38 Globulin 3.5 g/dL (1.3-4.6) 07/07/24 01:38 No radiology studies performed this visit Discharge Plan Discharge Patient Disposition: Home Clinical Impression: Leg mass, Chronic wound of extremity, Chronic pain syndrome Condition: Stable Prescriptions: New clindamycin HCl [Cleocin HCl] 300 mg capsule 600 mg PO QID 10 Days Qty: 80 0RF No Action trazodone 50 mg Tablet 50 mg PO BEDTIME PRN (Reason: Sleep) 30 Days Qty: 30 1RF olanzapine 10 mg Tablet 10 mg PO BEDTIME 30 Days Qty: 30 1RF hydroxyzine pamoate 25 mg Capsule 50 mg PO Q6H PRN (Reason: Anxiety) 30 Days Qty: 120 1RF Synthroid 50 mcg tablet 50 mcg PO DAILY 30 Days Qty: 30 1RF spironolactone 50 mg Tablet 50 mg PO DAILY 30 Days Qty: 30 1RF Discharge Orders: Discharge ED (Routine); Ordered 07/07/24 Ordered By: Marija Rangel Referrals: Shemar Bowles [Primary Care Provider, Internal Medicine] Roney Daniel MD [Physician, General Surgery] Referral Note: Please follow-up with general surgery for further treatment Discharge Diet: Usual diet Discharge Activity: Increase activity as tolerated Patient Instructions: Opioid Safety, Pain Management Activity Restrictions/Additional Instructions: Thank you for choosing [facility] for your healthcare needs today. You have been screened and evaluated and felt safe for discharge. Health conditions do change or evolve sometimes and as such it is important that you follow up with your Primary Doctor to be re checked, 3-5 days is a general good time frame for follow up. You are always welcome to return to the ED for re assessment if your symptoms are worsening or you have new concerns Print Language: German Coding Level of Care Code ED Mortgage Specialist for Willie Bae
[2024-07-07 00:56] VITALS: BP 126/78; PULSE 66; RESP 18; O2SAT 95
[2024-07-07] MEDS: cefepime 2,000 mg SDV 2000 MG IVP (01:29)
[2024-07-07 01:44] LABS: Basophils # 0.1 10^3/uL (0.0-0.1); Eosinophils # 0.3 10^3/uL (0.0-0.8); Hematocrit 48.6 % (37-53); Lymphocytes # 1.3 10^3/uL (0.8-4.8); Lymphocytes % 12.8 %; Mean Corpuscular HGB Conc 33.1 g/dL (30-55); Mean Corpuscular Hemoglobin 32.1 pg (27-33); Mean Corpuscular Volume 96.8 fl (82-101); Mean Platelet Volume 10.2 fL (7.4-10.4); Monocytes # 0.9 10^3/uL (0.2-0.9); Monocytes % 8.4 %; Neutrophils # 7.72 10^3/uL (1.8-7.7); Neutrophils % 74.2 %; Nucleated Red Blood Cells % 0 %; Platelet Count 222 10^3/cmm (157-399); Red Blood Count 5.02 10^6/uL (3.85-5.65); Red Cell Distribution Width 16.6 % (12.1-15.1); White Blood Count 10.39 10^3/uL (3.29-11.43)
[2024-07-07 01:46] LABS: Erythrocyte Sedimentation Rate 12 mm/hr (0-10)
[2024-07-07 01:52] VITALS: BP 126/70; PULSE 67; RESP 16; O2SAT 96
[2024-07-07] MEDS: HYDROmorphone 0.5 MG/0.5 ML INJ 2 MG IVP (01:59)
[2024-07-07 02:00] LABS: Alanine Aminotransferase 71 U/L (0-41); Albumin Level 2.6 g/dL (3.5-5.2); Alkaline Phosphatase 262 U/L (40-130); Anion Gap 13.4 (5-19); Aspartate Amino Transferase 163 U/L (0-40); Blood Urea Nitrogen 11 mg/dL (8-23); C Reactive Protein 41.6 mg/L (0.0-4.9); Calcium 8.3 mg/dL (8.5-10.5); Carbon Dioxide 24 mmol/L (22-29); Chloride 101 mmol/L (98-107); Creatinine Clr Calc Pharmacy 122.1026; Globulin 3.5 g/dL (1.3-4.6); Glomerular Filtration Rate 166.4 mL/min (90-130); Glucose 89 mg/dL (65-115); Osmolality Calculated 277 mOsm/kg (285-295); Potassium 4.4 mmol/L (3.5-5.1); Sodium 134 mmol/L (136-145); Total Bilirubin 4.1 mg/dL (0.15-1.2); Total Protein 6.1 g/dL (6.6-8.7)
[2024-07-07 02:23] VITALS: BP 137/72; PULSE 90; RESP 16; O2SAT 94
[2024-07-07 03:32] VITALS: BP 122/68; PULSE 66; RESP 16; O2SAT 91
== END 2024-07-07 03:41 | disposition home or self-care (01) ==
PROVIDERS: Emergency Provider Emergency Medicine; PCP Student in an Organized Health Care Education/Training Program
DX: R22.31 Localized swelling, mass and lump, right upper limb (principal); S71.101A Unspecified open wound, right thigh, initial encounter; X58.XXXA Exposure to other specified factors, initial encounter; G89.4 Chronic pain syndrome
CPT/HCPCS: 80053; 85025; 85651; 86140; 96374; 96375; 99284; J0692; J1171

== ENCOUNTER → 2024-07-14 13:48 | Outpatient (BNVA) | payer MEDICARE, MEDICAID, SELFPAY | PROVIDERS: PCP Student in an Organized Health Care Education/Training Program; Visit Provider Student in an Organized Health Care Education/Training Program | DX: M79.89 Other specified soft tissue disorders (principal) | CPT/HCPCS: 99204 ==